=== PATIENT | male | born 1960 | race Caucasian/White ===

== ENCOUNTER 2018-04-16 18:10 | Inpatient (IN) | END 2018-04-21 18:15 | disposition home health service (06) | DRG 638 ==

== ENCOUNTER 2018-04-24 15:19 | Outpatient (CLI) | END 2018-04-24 16:18 | disposition home or self-care (01) ==

== ENCOUNTER 2018-05-09 15:03 | Outpatient (CLI) | END 2018-05-09 16:06 | disposition home or self-care (01) ==

== ENCOUNTER 2018-06-05 15:47 | Emergency (ER) | END 2018-06-05 16:43 | disposition home or self-care (01) ==

== ENCOUNTER 2018-08-06 13:59 | Inpatient (IN) | END 2018-08-07 18:55 | disposition home or self-care (01) | DRG 684 ==

== ENCOUNTER 2018-09-01 20:12 | Emergency (ER) | END 2018-09-02 01:41 | disposition home or self-care (01) ==

== ENCOUNTER 2018-11-14 13:20 | Inpatient (IN) | payer OTHER ==
[~2018-11-14] VITALS: Ht 152.4 cm; Wt 71.3 kg
[~2018-11-14 13:20] MED LIST: ADMELOG SUBCUTANE*; ASPI-903 PO; ATOR10TA65 PO; CIPR500T4 PO; DOCU-144 PO; GABA100C14 PO; LISI-313 PO; METO10TA92 PO; MTF1000T PO
[2018-11-14 13:22] VITALS: Ht 152.4 cm; Wt 71.3 kg
[2018-11-14] MEDS ORDERED: METO5TAB2 PO (14:18)
[2018-11-14] MEDS ORDERED: INSU100I33 SC (14:19)
[2018-11-14] MEDS ORDERED: SOD CHLORIDE 0.9% 1,000 ML IV STA (14:21)
[2018-11-14] MEDS ORDERED: ONDANSETRON 4 MG INJ IV STA (14:21)
[2018-11-14] MEDS ORDERED: ATOR20TA38 PO (14:21)
[2018-11-14] MEDS ORDERED: TAMS0.4C2 PO (14:23)
[2018-11-14] MEDS ORDERED: ONDANSETRON 4 MG INJ IV PRN (17:30)
[2018-11-14] MEDS ORDERED: ACETAMINOPHEN 325 MG TAB PO PRN (17:30)
[2018-11-14] MEDS ORDERED: LEVOFLOXACIN 500MG/D5W (PMX) 100 ML IVPB SCH (18:00)
[2018-11-14] MEDS ORDERED: NACL 0.9% 3 ML SYG IV SCH (18:00)
--- NOTE | 2018-11-14 18:30 | HP ---
Date/Time of Note Date/Time of Note DATE: 11/14/18 TIME: 18:08 Assessment/Plan VTE Prophylaxis SCD contraindicated: low risk/ambulating Pharmacological prophylaxis: NA/contraindicated Pharm contraindication: low risk/ambulating Lines/Catheters IV Catheter Type (from Nrsg): Saline Lock Assessment/Plan Assessment/Plan 58M with history of IDDM, stage 2 CKD, peripheral vascular disease status post foot amputations for osteomyelitis as well as severe diabetic retinopathy; presents with ALMAS, hypotension, PO intolerance, flank pain #Suspect sepsis - Flank pain may represent pyelo but his UTI shows no evidence of infection - However, due to his overall poor condition, hypotension, and leukocytosis I will start levofloxacin empirically - f/u urine culture - Blood cultures - Also sent influenza #Flank pain - f/u urine culture - Renal ultrasound. #PO intolerance - May be due to sepsis as above - May also be diabetic gastroparesis. - prn Reglan - IV fluids until tolerating diet. - Senna 2 tabs BID in case of ileus/constipation. #ALMAS - Likely due to dehydration - IV fluids and reassess - Pending outpatient nephrology appointment. #Chest pain - History not typical of cardiac chest pain. - Trops negative, EKG with poor R wave progression otherwise no ST-T change concerning for ischemia. - Will trend 3 trops - Will start protonix for suspected GERD. #IDDM - Hyperglycemic on admission - Will resume half dose home insulin due to poor PO intake. DVT: SCDs GI: Protonix HPI/ROS Admit Date/Time Admit Date/Time Nov 14, 2018 Hx of Present Illness Mr. Loya is a 58 yo man with history of IDDM, stage 2 CKD, peripheral vascular disease status post foot amputations for osteomyelitis as well as severe diabetic retinopathy. He presents with chills, flank pain, and PO intolerance. Symptoms are gradually progressive over the past three weeks. He reports progressive weakness and fatigue; chills constantly throughout the day mixed with intermitted fevers. He has not measured his own temperature. Over the past week he's developed nausea and anorexia. Yesterday he drank some water and immediately vomited it back up. This morning he woke up and had dry heaving. Yesterday he also developed burning pain across his chest. It's not associated with PO intake and doesn't change with exertion. It does not change with position. It's been roughly constant for since yesterday. For the past few days he has lightheadedness when standing and walking. He stopped taking his insulin for 5 days because his blood sugars have been low; and has not had a bowel movement for 5 days. His PMD is Dr. Mayers who he saw recently. She referred him to a electrolysis operator for his CKD and urology for BPH, he hasn't had these appointments yet. In the ED he presented tachy to 110s, hypotensive to 75/52 and this increased to 136/73 after 1L NS. WBC was 12.4. Cr 2.15 from 1.45. UA was negative for bacteria, nitrates, and leuk esterase. 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); No discharge, No redness ENT: No congestion Respiratory: No cough, No pleuritic pain, No shortness of breath Cardiovascular: chest pain; No edema, No palpitations Gastrointestinal: decreased appetite; No blood, No diarrhea Genitourinary: dysuria, flank pain; No bleeding Musculoskeletal: bone/joint pain, neck pain Skin: No bruising, No erythema Neurologic: dizziness; No confusion, No headache Lymphatic: No adenopathy PMH/Family/Social Past Medical History IDDM stage 2 CKD peripheral vascular disease Coded Allergies: No Known Allergy (Unverified , 11/14/18) Past Surgical History L foot transmetatarsal amputation 2014, R foot 5 digit amputation 2002 L eye surgery for retinopathy Family History Significant Family History: no pertinent family hx Social History Alcohol Use: none Smoking Status: Never smoker Drug Use: none Exam/Review of Systems Vital Signs Vitals Vital Signs Date Temp Pulse Resp B/P (MAP) Pulse Ox O2 O2 Flow FiO2 Time Delivery Rate 11/14/18 98.0 102 16 136/73 97 Room Air 17:18 (94) Exam Exam Gen: Fatigued appearing man in no acute distress. Eyes: PERRL, no icterus HEENT: Moist mucous membranes, clear oropharynx Neck: No lymphadenopathy, no JVD Card: Regular rate and rhythm, no murmurs Pulm: Clear to auscultation bilaterally Back: Bilateral CVA tenderness. No midline spine tenderness. Abd: Soft, nondistended, mild TTP RLQ. Ext: L foot transmetatarsal amputation, clean appearing. R foot with large media l bunion and well-healed dry ulcer underneath it Medications Medications Current Medications Ondansetron HCl (Zofran Inj) 4 mg BRIDGE ORDER PRN IV NAUSEA AND/OR VOMITING; Start 11/14/18 at 17:30; Stop 11/15/18 at 17:29 Acetaminophen (Tylenol Tab) 650 mg ER BRIDGE PRN PO MILD PAIN(1-3)OR ELEVATED TEMP; Start 11/14/18 at 17:30; Stop 11/15/18 at 17:29 Aspirin (Aspirin) 81 mg DAILY PO ; Start 11/15/18 at 09:00; Status UNV Atorvastatin Calcium (Lipitor) 20 mg QHS PO ; Start 11/14/18 at 21:00; Status UNV Gabapentin (Neurontin) 100 mg TID PO ; Start 11/14/18 at 21:00; Status UNV Lisinopril (Zestril) 5 mg DAILY PO ; Start 11/15/18 at 09:00; Status UNV Tamsulosin HCl (Flomax) 0.4 mg DAILY PO ; Start 11/15/18 at 09:00; Status UNV Sodium Chloride 1,000 ml @ 75 mls/hr [id number] IV ; Start 11/14/18 at 17:58; Status UNV IV Flush (NS 3 ml) 3 ml PER PROTOCOL IV ; Start 11/14/18 at 18:00; Status UNV Metoclopramide HCl (Reglan) 10 mg Q6H PRN IV NAUSEA AND/OR VOMITING; Start 11/14/18 at 18:00; Status UNV Acetaminophen (Tylenol Tab) 650 mg Q6H PRN PO PAIN LEVEL 1-3 OR FEVER; Start 11/14/18 at 18:00; Status UNV Results Result Diagram: 11/14/18 1505 11/14/18 1505 Results 24 hrs Laboratory Tests Test 11/14/18 14:18 11/14/18 15:05 11/14/18 15:20 Bedside Glucose 216 White Blood Count 12.4 #H Red Blood Count 3.35 L Hemoglobin 9.8 L Hematocrit 30.3 L Mean Corpuscular Volume 90.4 Mean Corpuscular Hemoglobin 29.3 Mean Corpuscular 32.3 Hemoglobin Concent Red Cell Distribution Width 12.5 Platelet Count 449 #H Mean Platelet Volume 9.7 Immature Granulocytes % 0.600 H Neutrophils % 73.4 Lymphocytes % 15.0 Monocytes % 10.3 Eosinophils % 0.3 Basophils % 0.4 Nucleated Red Blood Cells % 0.0 Immature Granulocytes # 0.070 H Neutrophils # 9.1 H Lymphocytes # 1.9 Monocytes # 1.3 H Eosinophils # 0.0 Basophils # 0.1 Nucleated Red Blood Cells # 0.0 Prothrombin Time 15.8 H Prothrombin Time Ratio 1.2 INR International 1.24 Normalized Ratio Activated 39.9 H Partial Thromboplast Time Sodium Level 139 Potassium Level 4.9 Chloride Level 96 L Carbon Dioxide Level 25 Anion Gap 18 H Blood Urea Nitrogen 46 H Creatinine 2.15 H Est Glomerular Filtrat 32 L Rate mL/min Glucose Level 230 H Calcium Level 10.5 H Total Bilirubin 1.2 Direct Bilirubin 0.00 Indirect Bilirubin 1.2 H Aspartate Amino 22 Transf (AST/SGOT) Alanine 10 L Aminotransferase (ALT/SGPT) Alkaline Phosphatase 87 Troponin I < 0.012 Total Protein 9.5 H Albumin 4.2 Globulin 5.30 H Albumin/Globulin Ratio 0.79 Lipase 42 Urine Color YELLOW Urine Clarity SLIGHTLY CLOUDY A Urine pH 5.0 Urine Specific [place] 1.021 Urine Ketones 1+ H Urine Nitrite NEGATIVE Urine Bilirubin NEGATIVE Urine Urobilinogen 1+ H Urine Leukocyte Esterase NEGATIVE Urine Microscopic RBC 0 Urine Microscopic WBC 2 Urine Mucus FEW A Urine Hemoglobin 1+ H Urine Glucose 3+ H Urine Total Protein 2+ H CLOVIS JACKMAN MD Nov 14, 2018 18:18
--- NOTE | 2018-11-14 18:39 | ERD ---
ER Documentation Chief Complaint Chief Complaint FEVER/CHILLS, DIZZINESS, WEAKNESS, CHEST PAIN X 10 DAYS HPI 58-year-old male with CKD and diabetes presenting with complaints of generalized weakness with associated chills and decreased appetite. He has also had some generalized body discomfort. He denies any melena or hematochezia. No nausea, vomiting, diarrhea. He denies cough, flulike symptoms, dysuria, or abdominal pain. He does state that his back hurts from his kidneys ROS All systems reviewed and are negative except as per history of present illness. Medications Home Meds Reported Medications Tamsulosin Hcl* (Tamsulosin Hcl*) 0.4 Mg Cap.er.24h, 0.4 MG PO DAILY, CAP 11/14/18 Atorvastatin Calcium* (Atorvastatin Calcium*) 20 Mg Tablet, 20 MG PO QHS, #30 TAB 11/14/18 Insulin Glargine,Hum.rec.anlog (Basaglar Kwikpen U-100) 100 Unit/1 Ml Insuln.pen, 45 UNIT SC QHS, EA 11/14/18 Metoclopramide Hcl* (Metoclopramide Hcl*) 5 Mg Tablet, 5 MG PO BID PRN for NAUSEA AND OR VOMITING, TAB 11/14/18 [Admelog] No Conflict Check, 15 UNITS SUBCUTANE* AC MEALS 08/06/18 Aspirin* (Aspirin* Chew) 81 Mg Tab.chew, 81 MG PO DAILY, TAB.CHEW 04/16/18 Lisinopril* (Lisinopril*) 5 Mg Tablet, 5 MG PO DAILY, #30 TAB 04/16/18 Gabapentin* (Gabapentin*) 100 Mg Capsule, 100 MG PO TID, #90 CAP 04/16/18 Discontinued Reported Medications Metoclopramide* (Reglan*) 10 Mg Tablet, 10 MG PO AC MEALS, TAB 04/16/18 Atorvastatin Calcium (Atorvastatin Calcium) 10 Mg Tablet, 10 MG PO QHS, #30 TAB 04/16/18 Metformin* (Glucophage*) 1,000 Mg Tablet, 1000 MG PO BID, #60 TAB 04/16/18 Discontinued Scripts Docusate Sodium* (Colace*) 100 Mg Capsule, 100 MG PO TID, #30 CAP Prov:KEISHA MOYA 09/02/18 Ciprofloxacin Hcl* (Ciprofloxacin Hcl*) 500 Mg Tablet, 500 MG PO BID for 7 Days, TAB Prov:KEISHA MOYA 09/02/18 Allergies Allergies: Coded Allergies: No Known Allergy (Unverified , 11/14/18) PMhx/Soc History of Surgery: No (LEFT FOOT TOES AMPUTATION, 2012, LEFT SMALL TOE AMPUT 2001) Anesthesia Reaction: No Hx Neurological Disorder: Yes (NEUROPATHY) Hx Respiratory Disorders: No Hx Cardiac Disorders: Yes (htn) Hx Psychiatric Problems: No Hx Miscellaneous Medical Probl: Yes (DM, BPH, R FOOT ULCER) Hx Alcohol Use: No Hx Substance Use: No Hx Tobacco Use: No Smoking Status: Never smoker FmHx Family History: No diabetes Physical Exam Vitals Vital Signs Date Temp Pulse Resp B/P (MAP) Pulse Ox O2 O2 Flow FiO2 Time Delivery Rate 11/14/18 98.0 102 16 136/73 97 Room Air 17:18 (94) 11/14/18 98.2 106 18 154/80 97 Room Air 15:34 (104) 11/14/18 113 16 129/68 99 Room Air 14:06 (88) 11/14/18 98.7 112 18 75/52 (60) 99 13:22 Physical Exam Const: No acute distress. Very thin and frail appearing Head: Atraumatic Eyes: Normal Conjunctiva, PERRLA, EOMI ENT: Normal External Ears, Nose and Mouth. Neck: Full range of motion. No meningismus. Resp: Clear to auscultation bilaterally Cardio: Regular rate and rhythm, no murmurs Abd: Soft, non tender, non distended. No palpable masses., normal bowel sounds Skin: Pale. No petechiae or rashes Back: No midline or flank tenderness Ext: No cyanosis, or edema Neur: Awake and alert. Normal speech, no facial asymmetry, strength and sensation is intact in all 4 extremities Psych: Normal Mood and Affect Result Diagram: 11/14/18 1505 11/14/18 1505 Results 24 hrs Laboratory Tests Test 11/14/18 14:18 11/14/18 15:05 11/14/18 15:20 Bedside Glucose 216 mg/dL White Blood Count 12.4 10^3/ul Red Blood Count 3.35 10^6/ul Hemoglobin 9.8 g/dl Hematocrit 30.3 % Mean Corpuscular Volume 90.4 fl Mean Corpuscular Hemoglobin 29.3 pg Mean Corpuscular 32.3 g/dl Hemoglobin Concent Red Cell Distribution Width 12.5 % Platelet Count 449 10^3/UL Mean Platelet Volume 9.7 fl Immature Granulocytes % 0.600 % Neutrophils % 73.4 % Lymphocytes % 15.0 % Monocytes % 10.3 % Eosinophils % 0.3 % Basophils % 0.4 % Nucleated Red Blood Cells % 0.0 /100WBC Immature Granulocytes # 0.070 10^3/ul Neutrophils # 9.1 10^3/ul Lymphocytes # 1.9 10^3/ul Monocytes # 1.3 10^3/ul Eosinophils # 0.0 10^3/ul Basophils # 0.1 10^3/ul Nucleated Red Blood Cells # 0.0 10^3/ul Prothrombin Time 15.8 Sec Prothrombin Time Ratio 1.2 INR International 1.24 Normalized Ratio Activated Partial Thromboplast 39.9 Sec Time Sodium Level 139 mmol/L Potassium Level 4.9 mmol/L Chloride Level 96 mmol/L Carbon Dioxide Level 25 mmol/L Anion Gap 18 Blood Urea Nitrogen 46 mg/dl Creatinine 2.15 mg/dl Est Glomerular Filtrat 32 mL/min Rate mL/min Glucose Level 230 mg/dl Calcium Level 10.5 mg/dl Total Bilirubin 1.2 mg/dl Direct Bilirubin 0.00 mg/dl Indirect Bilirubin 1.2 mg/dl Aspartate Amino 22 IU/L Transf (AST/SGOT) Alanine 10 IU/L Aminotransferase (ALT/SGPT) Alkaline Phosphatase 87 IU/L Troponin I < 0.012 ng/ml Total Protein 9.5 g/dl Albumin 4.2 g/dl Globulin 5.30 g/dl Albumin/Globulin Ratio 0.79 Lipase 42 U/L Urine Color YELLOW Urine Clarity SLIGHTLY CLOUDY Urine pH 5.0 Urine Specific [place] 1.021 Urine Ketones 1+ mg/dL Urine Nitrite NEGATIVE mg/dL Urine Bilirubin NEGATIVE mg/dL Urine Urobilinogen 1+ mg/dL Urine Leukocyte Esterase NEGATIVE [place]/ul Urine Microscopic RBC 0 /HPF Urine Microscopic WBC 2 /HPF Urine Mucus FEW /HPF Urine Hemoglobin 1+ mg/dL Urine Glucose 3+ mg/dL Urine Total Protein 2+ mg/dl Current Medications Medications Dose Sig/Yanira Start Time Status Last (Trade) Ordered Route PRN Stop Time Admin Dose Reason Admin Sodium 1,000 ml @ Q28M STAT 11/14/18 DC 11/14/18 Chloride 2,160 mls/hr IV 14:21 14:54 11/14/18 14:48 Ondansetron 4 mg ONCE STAT 11/14/18 DC 11/14/18 HCl (Zofran IV 14:21 14:54 Inj) 11/14/18 14:25 Ondansetron 4 mg BRIDGE ORDER 11/14/18 DC HCl (Zofran PRN IV 17:30 Inj) NAUSEA AND/OR 11/14/18 VOMITING 18:08 650 mg ER BRIDGE 11/14/18 DC Acetaminophen PRN PO MILD 17:30 (Tylenol PAIN(1-3)OR 11/14/18 Tab) ELEVATED TEMP 18:08 Aspirin 81 mg DAILY PO 11/15/18 (Aspirin) 09:00 20 mg QHS PO 11/14/18 Atorvastatin 21:00 Calcium (Lipitor) Gabapentin 100 mg TID PO 11/14/18 (Neurontin) 21:00 Lisinopril 5 mg DAILY PO 11/15/18 (Zestril) 09:00 Tamsulosin 0.4 mg DAILY PO 11/15/18 HCl 09:00 (Flomax) Sodium 1,000 ml @ [id number] IV 11/14/18 Chloride 75 mls/hr 17:58 IV Flush 3 ml PER 11/14/18 (NS 3 ml) PROTOCOL IV 18:00 10 mg Q6H PRN 11/14/18 Metoclopramid IV NAUSEA 18:00 e HCl AND/OR (Reglan) VOMITING 650 mg Q6H PRN 11/14/18 Acetaminophen PO PAIN 18:00 (Tylenol LEVEL 1-3 OR Tab) FEVER 100 ml @ Q48H IVPB 11/14/18 Levofloxacin/ 100 mls/hr 18:00 Dextrose 40 mg DAILY@0600 11/14/18 Pantoprazole PO 18:30 (Protonix Tab) Procedures/MDM EMERGENT LABS AND DIAGNOSTIC STUDIES: Lab Results above were reviewed and interpreted by me. CBC: Mild leukocytosis, thrombocytosis, anemia CMP: Elevated BUN and creatinine, worse than baseline, consistent with acute on chronic renal failure. Hyperglycemic. No evidence of electrolyte abnormality Troponin within normal limits, not indicative of cardiac ischemia UA: Microscopic hematuria. No evidence of infection 12-lead EKG was interpreted by Jazmyn Lacy MD: Sinus tachycardia with ventricular rate of 113 beats per minute Normal axis Normal intervals No acute ST or T wave changes suggestive of acute ischemia or STEMI. Radiology Results as interpreted by Radiology below were reviewed by Dylon Lacy MD: Chest x-ray shows no acute abnormalities Initial Nursing notes reviewed. Previous Medical Records requested via the Electronic Health Record. EMERGENCY DEPARTMENT COURSE / MEDICAL DECISION MAKING: Patient is presenting with generalized weakness. Vitals were notable for hypotension and tachycardia upon arrival. However in the room the patient's blood pressure normalized without intervention. IVs were placed and basic labs were done. Labs show evidence of mild anemia and acute on chronic renal failure, likely secondary to dehydration. 2 L of IV fluids ordered. Patient wi ll require admission for further workup and monitoring of renal function. Critical Care Time: 33 minutes Treatments/Evaluations: Close monitoring and treatment of unstable vital signs, cardiorespiratory, and neurologic status, while maintaining tight balance of fluid, respiratory, and cardiac interventions. This time includes discussing the case with the patient and the patients family. This time does not include all procedures stated elsewhere in this record. This time also includes reviewing old records, labs and radiological studies. This time includes examining and re- examining the patient. Additionally, this time also includes arranging care with admitting and consulting physicians. Accepting Care Team: Current data and ongoing care discussed. Time: Time of admission Primary Provider: Dr. Donovan Outstanding Data: none Departure Diagnosis: Primary Impression: Acute on chronic renal failure Acute renal failure type: unspecified Chronic kidney disease stage: unspecified stage Qualified Codes: N17.9 - Acute kidney failure, un specified; N18.9 - Chronic kidney disease, unspecified Additional Impressions: Dehydration Anemia Anemia type: unspecified type Qualified Codes: D64.9 - Anemia, unspecified Uncontrolled diabetes mellitus Diabetes mellitus type: type 2 Glycemic state: with hyperglycemia Qualified Codes: E11.65 - Type 2 diabetes mellitus with hyperglycemia Condition: Fair EKMEKJIAN,NELLIE R. MD Nov 14, 2018 18:38
[2018-11-14] MEDS ORDERED: GLUCOSE GEL 15 GRAM TUBE PO PRN ×2 (19:00)
[2018-11-14] MEDS ORDERED: GLUCAGON 1 MG INJ IM PRN (19:00)
[2018-11-14] MEDS ORDERED: GLUCOSE GEL 15 GRAM TUBE BUCCAL PRN (19:00)
[2018-11-14] MEDS ORDERED: DEXTROSE 50% 50 ML SYRINGE IV PRN ×2 (19:00)
[2018-11-14] MEDS: SOD CHLORIDE 0.9% 1,000 ML IV SCH (20:15)
[2018-11-14 20:26] VITALS: BP 112/58; PULSE 104; RESP 18
[2018-11-14] MEDS: GABAPENTIN 100 MG CAP PO SCH (20:55)
[2018-11-14] MEDS: ATORVASTATIN 20 MG TAB PO SCH (20:55)
[2018-11-14] MEDS: PANTOPRAZOLE (EC) 40 MG TAB PO SCH (20:56)
[2018-11-14] MEDS: INSULIN ASPART [NOVOLOG] 3 ML PEN SC SCH (21:00)
--- NOTE | 2018-11-14 21:00 | NUR ---
PATIENT ADMITTED FROM ER.DIAGNOSIS DEHYDRATION,ALMAS.ALERT AND ORIENTED X 4. PATIENT WITH CHIEF COMPLAIN OF FEVER ,CHILLS,WEAKNESS X 10 DAYS.WE CLAIMED HE HAS NOT GOTTEN UP FOR 10DAYS ALREADY DUE TO WEAKNESS,NAUSEA ,VOMITING.PATIENT ASSISTED TO BED.INSTRUCTED TO USE CALL LIGHT FOR ASSISTANCE.BED CONTROLS ALSO INSTRUCTED.
[2018-11-14] MEDS: INSULIN GLARGINE [LANTus] (100 UNITS/ML) SYG SC SCH (23:09)
[2018-11-15] MEDS: ACCU-CHEK XX SCH (02:00)
[2018-11-15 02:34] VITALS: BP 93/55; PULSE 88; RESP 18
[2018-11-15] MEDS: ACETAMINOPHEN 325 MG TAB PO PRN ×3 (02:45→23:44)
[2018-11-15] MEDS ORDERED: SOD CHLORIDE 0.9% 500 ML IV ONE (03:00)
--- NOTE | 2018-11-15 03:04 | NUR ---
PATIENT'S TEMP 102.0.BLOOD PRHXLDHP05/55.DR. FERREIRA NOTIFIED RECEIVED ORDER TO GIVE 500ML NS BOLUS X1.
--- NOTE | 2018-11-15 03:45 | NUR ---
TEMP. RECHECKED AND B/P RECHECKED.TEMP.99.2 AND BLOOD PRESSURE 104/57.
--- NOTE | 2018-11-15 06:24 | NUR ---
END OF SHIFT. PATIENT WITH NO C/O PAIN. SLEPT ON AND OFF. VOIDING WELL. COOLING MEASURES DONE.NO RESP. DISTRESS NOTED.
[2018-11-15] MEDS: PANTOPRAZOLE (EC) 40 MG TAB PO SCH (06:37)
[2018-11-15] MEDS: SOD CHLORIDE 0.9% 1,000 ML IV SCH ×4 (07:18→23:39)
[2018-11-15 07:21] VITALS: BP 110/59; PULSE 74; RESP 18
[2018-11-15] MEDS: INSULIN ASPART [NOVOLOG] 3 ML PEN SC SCH ×7 (08:00→21:00)
[2018-11-15] MEDS: GABAPENTIN 100 MG CAP PO SCH ×3 (08:13→21:02)
[2018-11-15] MEDS: ASPIRIN 81 MG TAB PO SCH (08:13)
[2018-11-15] MEDS: TAMSULOSIN (SR) 0.4 MG CAP PO SCH (08:13)
[2018-11-15] MEDS: LISINOPRIL 5 MG TAB PO SCH (10:24)
[2018-11-15 13:53] VITALS: BP 102/56; PULSE 89; RESP 18
--- NOTE | 2018-11-15 16:08 | PN ---
Date/Time of Note Date/Time of Note DATE: 11/15/18 TIME: 16:04 Assessment/Plan VTE Prophylaxis Risk score (from Ns)>0 risk: 3 SCD applied (from Ns): Yes Pharmacological prophylaxis: NA/contraindicated Pharm contraindication: low risk/ambulating Lines/Catheters IV Catheter Type (from Nrsg): Saline Lock Urinary Cath still in place: No Assessment/Plan Assessment/Plan 58M with history of IDDM, stage 2 CKD, peripheral vascular disease status post foot amputations for osteomyelitis as well as severe diabetic retinopathy; presents with ALMAS, hypotension, PO intolerance, flank pain #Suspect sepsis - Flank pain may represent pyelo but his UTI shows no evidence of infection, urine culture also negative. - Influenza neg - May have been viral gastroenteritis. - Will stop antibiotics #Flank pain - Renal ultrasound shows nonobstructing stone, no e/o pyelo. - Now resolving. #PO intolerance - May be due to sepsis as above - May also be diabetic gastroparesis. - prn Reglan - Now tolerating diet. - Senna 2 tabs BID in case of ileus/constipation. #ALMAS - Likely due to dehydration - Now resolved. - Pending outpatient nephrology appointment. #Chest pain - History not typical of cardiac chest pain. - Trops negative, EKG with poor R wave progression otherwise no ST-T change concerning for ischemia. - Will start protonix for suspected GERD. #IDDM - Hyperglycemic on admission - Will resume half dose home insulin due to poor PO intake. DVT: SCDs GI: Protonix Dispo: Tomorrow if ambulating comfortably will plan for discharge. Subjective 24 Hr Interval Summary Free Text/Dictation Patient feels well today. Tolerating diet. Flank pain improving. Still some dizziness and fatigue when standing and walking. Exam/Review of Systems Vital Signs Vitals Vital Signs Date Temp Pulse Resp B/P (MAP) Pulse Ox O2 O2 Flow FiO2 Time Delivery Rate 11/15/18 98.4 89 18 102/56 99 Room Air 13:53 (71) Intake and Output 11/14/18 11/14/18 11/15/18 1515:00 23:00 07:00 IntakeIntake Total 1000 ml 1420 ml OutputOutput Total 500 ml BalanceBalance 1000 ml 920 ml Exam Gen: Fatigued appearing man in no acute distress. Eyes: PERRL, no icterus HEENT: Moist mucous membranes, clear oropharynx Neck: No lymphadenopathy, no JVD Card: Regular rate and rhythm, no murmurs Pulm: Clear to auscultation bilaterally Back: No CVA tenderness. No midline spine tenderness. Abd: Soft, nondistended, mild TTP RLQ. Ext: L foot transmetatarsal amputation, clean appearing. R foot with large medial bunion and well-healed dry ulcer underneath it Medications Medications Current Medications Aspirin (Aspirin) 81 mg DAILY PO Last administered on 11/15/18 08:13; Admin Dose 81 MG; Start 11/15/18 at 09:00 Atorvastatin Calcium (Lipitor) 20 mg QHS PO Last administered on 11/14/18 20:55; Admin Dose 20 MG; Start 11/14/18 at 21:00 Gabapentin (Neurontin) 100 mg TID PO Last administered on 11/15/18 12:32; Admin Dose 100 MG; Start 11/14/18 at 21:00 Lisinopril (Zestril) 5 mg DAILY PO Last administered on 11/15/18 10:24; Admin Dose 5 MG; Start 11/15/18 at 09:00 Tamsulosin HCl (Flomax) 0.4 mg DAILY PO Last administered on 11/15/18 08:13; Admin Dose 0.4 MG; Start 11/15/18 at 09:00 Sodium Chloride 1,000 ml @ 75 mls/hr [id number] IV Last administered on 11/15/18 10:23; Admin Dose 75 MLS/HR; Start 11/14/18 at 17:58 IV Flush (NS 3 ml) 3 ml PER PROTOCOL IV ; Start 11/14/18 at 18:00 Metoclopramide HCl (Reglan) 10 mg Q6H PRN IV NAUSEA AND/OR VOMITING; Start 11/14/18 at 18:00 Acetaminophen (Tylenol Tab) 650 mg Q6H PRN PO PAIN LEVEL 1-3 OR FEVER Last administered on 11/15/18 02:45; Admin Dose 650 MG; Start 11/14/18 at 18:00 Levofloxacin/ Dextrose 100 ml @ 100 mls/hr Q48H IVPB Last administered on 11/14/18 20:15; Admin Dose 100 MLS/HR; Start 11/14/18 at 18:00 Pantoprazole (Protonix Tab) 40 mg DAILY@0600 PO Last administered on 11/15/18at 06:37; Admin Dose 40 MG; Start 11/14/18 at 18:30 Senna (Senokot) 2 tab BID PRN PO CONSTIPATION; Start 11/14/18 at 18:30 Diagnostic Test (Pha) (Accu-Chek) 1 ea 02 XX ; Start 11/15/18 at 02:00 Insulin Glargine (Lantus) 21 units DAILY@2000 SC Last administered on 11/14/18at 23:09; Admin Dose 21 UNITS; Start 11/14/18 at 20:00 Insulin Aspart (Novolog Insulin Pen) 7 unit WITH MEALS SC Last administered on 11/15/18at 12:39; Admin Dose 7 UNIT; Start 11/15/18 at 08:00 Insulin Aspart (Novolog Insulin Pen) NOVOLOG *MODERATE* ALGORITHM WITH MEALS BEDTIME SC Last administered on 11/15/18at 12:37; Admin Dose 2 UNIT; Start 11/14/18 at 21:00 Miscellaneous Information 1 ea NOTE XX ; Start 11/14/18 at 19:00 Glucose (Glutose) 15 gm Q15M PRN PO DECREASED GLUCOSE; Start 11/14/18 at 19:00 Glucose (Glutose) 22.5 gm Q15M PRN PO DECREASED GLUCOSE; Start 11/14/18 at 19:00 Dextrose (D50w Syringe) 25 ml Q15M PRN IV DECREASED GLUCOSE; Start 11/14/18 at 19:00 Dextrose (D50w Syringe) 50 ml Q15M PRN IV DECREASED GLUCOSE; Start 11/14/18 at 19:00 Glucagon (Glucagen) 1 mg Q15M PRN IM DECREASED GLUCOSE; Start 11/14/18 at 19:00 Glucose (Glutose) 15 gm Q15M PRN BUCCAL DECREASED GLUCOSE; Start 11/14/18 at 19:00 Results Result Diagram: 11/15/1835 11/15/18 0535 Results 24 hrs Laboratory Tests Test 11/14/18 18:10 11/14/18 22:17 11/14/18 23:05 11/15/18 05:35 Lactic Acid 1.2 Level Troponin I < 0.012 0.014 Thyroid 1.420 Stimulating Hormone (TSH) Free Thyroxine 1.47 Bedside Glucose 165 White Blood 7.4 # Count Red Blood Count 2.57 #L Hemoglobin 7.6 #L Hematocrit 23.2 #L Mean Corpuscular 90.3 Volume Mean Corpuscular 29.6 Hemoglobin Mean Corpuscular 32.8 Hemoglobin Ald[place] nt Red Cell 12.5 Distribution Width Platelet Count 312 # Mean Platelet 9.2 Volume Immature 0.500 H Granulocytes % Neutrophils % 61.1 Lymphocytes % 24.0 Monocytes % 12.9 H Eosinophils % 1.2 Basophils % 0.3 Nucleated Red 0.0 Blood Cells % Immature 0.040 H Granulocytes # Neutrophils # 4.5 Lymphocytes # 1.8 Monocytes # 1.0 H Eosinophils # 0.1 Basophils # 0.0 Nucleated Red 0.0 Blood Cells # Sodium Level 138 Potassium Level 4.2 Chloride Level 103 Carbon Dioxide 26 Level Anion Gap 9 # Blood Urea 38 H Nitrogen Creatinine 1.51 H Est Glomerular 48 L Filtrat Rate mL/min Glucose Level 94 # Hemoglobin A1c 8.2 H Calcium Level 9.3 Phosphorus Level 3.7 Magnesium Level 2.0 Total Bilirubin 1.0 Direct Bilirubin 0.00 Indirect 1.0 Bilirubin Aspartate Amino 17 Transf (AST/SGOT ) Alanine 14 Aminotransferase (ALT/SGPT) Alkaline 55 Phosphatase Total Protein 7.1 # Albumin 3.3 Globulin 3.80 H Albumin/Globulin 0.86 Ratio Test 11/15/18 07:58 11/15/18 12:31 Bedside Glucose 77 141 CLOVIS JACKMAN MD Nov 15, 2018 16:08
--- NOTE | 2018-11-15 18:18 | NUR ---
END OF SHIFT NOTES: PT STABLE, ALERT & ORIENTED X4. NO DISTRESS NOTED. ACCUCHECKS DONE, INSULIN COVERAGE GIVEN. MONITORED FOR FEVERS, X1 NOTED. GIVEN TYLENOL. REASSESSED.FEVER WENT DOWN TO FROM 100.8 TO 99.9. COOLING MEASURES INITIATED. KEPT HYDRATED VIA IV ORDERED. ENCOURAGED INCREASE IN FLUIDS. INSTRUCTED PT TO CALL FOR ASSISTANCE. VS WNL.HOURLY ROUNDING. CALL LIGHT WITHIN REACH.ALL NEEDS MET. NO NEW COMPLAINTS.
[2018-11-15] MEDS ORDERED: LEVOFLOXACIN 500 MG TAB PO ONE (18:30)
[2018-11-15 19:47] VITALS: BP 86/55; PULSE 81; RESP 18
[2018-11-15] MEDS: INSULIN GLARGINE [LANTus] (100 UNITS/ML) SYG SC SCH (20:00)
[2018-11-15 20:22] VITALS: BP 98/56; PULSE 77
[2018-11-15] MEDS: ATORVASTATIN 20 MG TAB PO SCH (21:01)
--- NOTE | 2018-11-15 22:14 | NUR ---
re: phyllis spoke with Dr. Prescott regarding lantus and bg. pt's bg is 101 and 21 units ordered of lantus, this AM bg was 77. Notified Dr. Prescott and orders given to administer 15 of lantus tonight.
[2018-11-15] MEDS ORDERED: INSULIN GLARGINE [LANTus] (100 UNITS/ML) SYG SC ONE (22:30)
[2018-11-15 23:51] VITALS: BP 135/66; PULSE 85
[2018-11-16 01:54] VITALS: BP 106/59; PULSE 82; RESP 18
[2018-11-16] MEDS: ACCU-CHEK XX SCH (02:00)
[2018-11-16] MEDS: ACETAMINOPHEN 325 MG TAB PO PRN ×4 (02:15→20:43)
[2018-11-16] MEDS: PANTOPRAZOLE (EC) 40 MG TAB PO SCH (06:35)
[2018-11-16] MEDS ORDERED: VANCOMYCIN IV PER PHARMACY XX SCH (07:00)
--- NOTE | 2018-11-16 07:35 | NUR ---
re: shift note pt is alert and oriented, vss, no signs of distress noted. administered prn tylenol for fever. gram positive cocci in clusters in bottle #1 blood culture, notified, orders for vanco per pharmacy. PO levaquin pending from pharmacy, endorsed to dayshift RN.
[2018-11-16 07:48] VITALS: BP 117/62; PULSE 79; RESP 16
[2018-11-16] MEDS ORDERED: VANCOMYCIN 1.5 GM in SOD CHLORIDE 0.9% 250 ML IVPB ONE (08:00)
[2018-11-16] MEDS: LISINOPRIL 5 MG TAB PO SCH (08:21)
[2018-11-16] MEDS: TAMSULOSIN (SR) 0.4 MG CAP PO SCH (08:21)
[2018-11-16] MEDS: ASPIRIN 81 MG TAB PO SCH (08:22)
[2018-11-16] MEDS: GABAPENTIN 100 MG CAP PO SCH ×3 (08:22→20:40)
[2018-11-16] MEDS: LEVOFLOXACIN 250 MG TAB PO SCH (08:24)
[2018-11-16] MEDS: INSULIN ASPART [NOVOLOG] 3 ML PEN SC SCH ×7 (08:26→20:41)
[2018-11-16] MEDS: METOCLOPRAMIDE 10 MG INJ IV PRN (08:27)
[2018-11-16] MEDS: SOD CHLORIDE 0.9% 1,000 ML IV SCH ×2 (09:58→15:22)
[2018-11-16 13:53] VITALS: BP 104/55; PULSE 76; RESP 16
--- NOTE | 2018-11-16 13:55 | PN ---
Date/Time of Note Date/Time of Note DATE: 11/16/18 TIME: 13:50 Assessment/Plan VTE Prophylaxis Risk score (from Nsg)>0 risk: 3 SCD applied (from Nsg): Yes Pharmacological prophylaxis: heparin Lines/Catheters IV Catheter Type (from Nrsg): Saline Lock Urinary Cath still in place: No Assessment/Plan Assessment/Plan 58M with history of IDDM, stage 2 CKD, peripheral vascular disease status post foot amputations for osteomyelitis as well as severe diabetic retinopathy; presents with ALMAS, hypotension, PO intolerance, flank pain #Sepsis - Flank pain may represent pyelo but his UTI shows no evidence of infection, urine culture also negative. - Influenza neg - Daily fevers. - May have been viral gastroenteritis; reported PO intolerance on admission but now tolerating diet fine. - Blood cultures growing 1/2 gram positive cocci. - Empiric levofloxacin and vanco - Also will get TTE. - Consulted ID #Flank pain - Renal ultrasound shows nonobstructing stone, no e/o pyelo. - Now resolving. #PO intolerance - Resolved #ALMAS - Likely due to dehydration - Now resolved. - Pending outpatient nephrology appointment. #Chest pain - History not typical of cardiac chest pain. - Trops negative, EKG with poor R wave progression otherwise no ST-T change concerning for ischemia. - Protonix for suspected GERD. #IDDM - Hyperglycemic on admission - Cont home insulin due to poor PO intake. DVT: SCDs GI: Protonix Subjective 24 Hr Interval Summary Free Text/Dictation Overnight had fevers to 101s. Still has mild bilateral flank pain. Otherwise feeling well, tolerating diet. Exam/Review of Systems Vital Signs Vitals Vital Signs Date Temp Pulse Resp B/P (MAP) Pulse Ox O2 O2 Flow FiO2 Time Delivery Rate 11/16/18 99.4 08:25 11/16/18 79 16 117/62 98 07:48 (80) 11/15/18 Room Air 13:53 Intake and Output 11/15/18 11/15/18 11/16/18 1515:00 23:00 07:00 IntakeIntake Total 1020 ml 885 ml 1380 ml OutputOutput Total 1450 ml BalanceBalance 1020 ml 885 ml -70 ml Exam Gen: Well appearing man in no acute distress. Eyes: PERRL, no icterus HEENT: Moist mucous membranes, clear oropharynx Neck: No lymphadenopathy, no JVD Card: Regular rate and rhythm, no murmurs Pulm: Clear to auscultation bilaterally Back: No CVA tenderness. No midline spine tenderness. Abd: Soft, nondistended, mild TTP RLQ. Ext: L foot transmetatarsal amputation, clean appearing. R foot with large medial bunion and well-healed dry ulcer underneath it Medications Medications Current Medications Aspirin (Aspirin) 81 mg DAILY PO Last administered on 11/16/18 08:22; Admin Dose 81 MG; Start 11/15/18 at 09:00 Atorvastatin Calcium (Lipitor) 20 mg QHS PO Last administered on 11/15/18 21:01; Admin Dose 20 MG; Start 11/14/18 at 21:00 Gabapentin (Neurontin) 100 mg TID PO Last administered on 11/16/18 13:10; Admin Dose 100 MG; Start 11/14/18 at 21:00 Lisinopril (Zestril) 5 mg DAILY PO Last administered on 11/16/18 08:21; Admin Dose 5 MG; Start 11/15/18 at 09:00 Tamsulosin HCl (Flomax) 0.4 mg DAILY PO Last administered on 11/16/18 08:21; Admin Dose 0.4 MG; Start 11/15/18 at 09:00 Sodium Chloride 1,000 ml @ 75 mls/hr [id number] IV Last administered on 11/15/18 23:39; Admin Dose 75 MLS/HR; Start 11/14/18 at 17:58 IV Flush (NS 3 ml) 3 ml PER PROTOCOL IV ; Start 11/14/18 at 18:00 Metoclopramide HCl (Reglan) 10 mg Q6H PRN IV NAUSEA AND/OR VOMITING Last administered on 11/16/18 08:27; Admin Dose 10 MG; Start 11/14/18 at 18:00 Acetaminophen (Tylenol Tab) 650 mg Q6H PRN PO PAIN LEVEL 1-3 OR FEVER Last administered on 11/16/18 06:35; Admin Dose 650 MG; Start 11/14/18 at 18:00 Pantoprazole (Protonix Tab) 40 mg DAILY@0600 PO Last administered on 11/16/18 06:35; Admin Dose 40 MG; Start 11/14/18 at 18:30 Senna (Senokot) 2 tab BID PRN PO CONSTIPATION; Start 11/14/18 at 18:30 Diagnostic Test (Pha) (Accu-Chek) 1 ea 02 XX ; Start 11/15/18 at 02:00 Insulin Glargine (Lantus) 21 units DAILY@1999 SC Last administered on 11/14/18at 23:09; Admin Dose 21 UNITS; Start 11/14/18 at 20:00; Status Hold Insulin Aspart (Novolog Insulin Pen) 7 unit WITH MEALS SC Last administered on 11/16/18at 12:32; Admin Dose 7 UNIT; Start 11/15/18 at 08:00 Insulin Aspart (Novolog Insulin Pen) NOVOLOG *MODERATE* ALGORITHM WITH MEALS BEDTIME SC Last administered on 11/16/18at 12:32; Admin Dose 2 UNIT; Start 11/14/18 at 21:00 Miscellaneous Information 1 ea NOTE XX ; Start 11/14/18 at 19:00 Glucose (Glutose) 15 gm Q15M PRN PO DECREASED GLUCOSE; Start 11/14/18 at 19:00 Glucose (Glutose) 22.5 gm Q15M PRN PO DECREASED GLUCOSE; Start 11/14/18 at 19:00 Dextrose (D50w Syringe) 25 ml Q15M PRN IV DECREASED GLUCOSE; Start 11/14/18 at 19:00 Dextrose (D50w Syringe) 50 ml Q15M PRN IV DECREASED GLUCOSE; Start 11/14/18 at 19:00 Glucagon (Glucagen) 1 mg Q15M PRN IM DECREASED GLUCOSE; Start 11/14/18 at 19:00 Glucose (Glutose) 15 gm Q15M PRN BUCCAL DECREASED GLUCOSE; Start 11/14/18 at 19:00 Levofloxacin (Levaquin) 250 mg DAILY@06 PO Last administered on 11/16/18at 08:24; Admin Dose 250 MG; Start 11/16/18 at 06:00 Vancomycin HCl (Vanco Iv Per Pharmacy) VANCOMYCIN PER PHARMACY PER PROTOCOL XX ; Start 11/16/18 at 07:00 Vancomycin HCl 250 ml @ 125 mls/hr Q12H IVPB ; Start 11/16/18 at 21:00 Results Result Diagram: 11/16/18 0509 11/16/18 0509 Results 24 hrs Laboratory Tests Test 11/15/18 17:37 11/15/18 21:46 11/15/18 22:20 11/16/18 05:09 Bedside Glucose 155 101 98 White Blood 8.1 Count Red Blood Count 2.68 L Hemoglobin 7.8 L Hematocrit 23.5 L Mean Corpuscular 87.7 Volume Mean Corpuscular 29.1 Hemoglobin Mean Corpuscular 33.2 Hemoglobin Alda nt Red Cell 12.3 Distribution Width Platelet Count 304 Mean Platelet 9.3 Volume Immature 0.200 Granulocytes % Neutrophils % 67.1 Lymphocytes % 21.2 Monocytes % 9.6 Eosinophils % 1.5 Basophils % 0.4 Nucleated Red 0.0 Blood Cells % Immature 0.020 Granulocytes # Neutrophils # 5.5 Lymphocytes # 1.7 Monocytes # 0.8 Eosinophils # 0.1 Basophils # 0.0 Nucleated Red 0.0 Blood Cells # Sodium Level 137 Potassium Level 4.4 Chloride Level 101 Carbon Dioxide 27 Level Anion Gap 9 Blood Urea 22 #H Nitrogen Creatinine 1.25 H Est Glomerular 60 Filtrat Rate mL/min Glucose Level 151 Calcium Level 8.9 Phosphorus Level 3.3 Magnesium Level 1.8 Test 11/16/18 07:54 11/16/18 12:22 Bedside Glucose 196 160 CLOVIS JACKMAN MD Nov 16, 2018 13:55
--- NOTE | 2018-11-16 14:00 | NUR ---
PT evaluation Therapy day number 1 Evaluation Start Time 14:00 Evaluation End Time 14:53 Evaluation Total Time 53 min Subjective Denies pain Pain Scale NUMERIC Pain Intensity 0 (0-10) Patient Stated Goal for Pain Relief 0 (0-10) Pain Level Comment denies pain Pre Treatment Vital Signs Stable Yes Supine to Sit Modified Independent Transfer Sit to Stand Ability Supervised Bed Mobility Sit to Supine Modified Independent Bed Transfer Ability Supervised Chair Transfer Ability Supervised Additional Mobility Comments improved with use of FWW Gait Assist Levels Supervised Assistive Devices Front Wheel Walker Ambulation Distance 10 feet Additional Gait Comments 5' performed without AD, required min A Weight Bearing Assessment Label Bilat Lower Extremity Weight Bearing Status Weight Bearing as Mukesh Static Sitting Balance Fair Dynamic Sitting Balance Fair Standing Static Balance Fair Dynamic Standing Balance Fair Additional Balance Assessments Comments much improved with use of UE support Safety Judgement Fair Activity Tolerance Fair Equipment Present IV pump Post Treatment Pain Intensity 0 0-10 Total Minutes 53 Total Units 4 PT Technical Record Comment 58 yo male presents with chills, flank pain, and PO intolerance. CXR (-) PMH: IDDM, stage 2 CKD, peripheral vascular disease status post foot amputations for osteomyelitis as well as severe diabetic retinopathy Precaution: fall risk, WBAT BLE, L transmetatarsal amputation, Charcot deformity of R foot PLOF:Patient lives in 2nd floor apartment with daughter, previously mod I reports not leaving apartment "except for doctor appointments" minimal ambulation due to wound on R forefoot S: Patient in bed, agreeable to PT evaluation. Pt cleared for activity per RN O: PT evaluation completed, pt returned back to bed following therapy intervention with call light within reach, all needs met, family present at bedside. No reports of pain, dizziness, or shortness of breath with activity. Spoke to RN regarding pt response to activity and PT plan of care. Patient gait trained with both FWW and without AD A: Patient presents with significant balance concerns without use of FWW. Patient educated to minimal LLE advancement to minimize terminal stance to decrease weight bearing on R forefoot for management of wound as patient has minimal sensation out of BLE and wound "opens". Patient consistantly relies on visual cues for foot placement and without AD often looks for UE support and although slightly apprehensive about using FWW initially, understanding of importance to decrease fall risk. Patient could benefit from 1-2 treatment interventions to improve compliance and safety with FWW P: Progress gait with FWW, stair training as able, Patient may ambulate with nursing and FWW Recommendation: Recommend use of FWW for safe mobility
[2018-11-16] MEDS ORDERED: HEPARIN 5,000 UNIT/0.5 ML VIAL ONE ×2 (14:28→20:34)
[2018-11-16] MEDS: HEPARIN 5,000 UNIT/1 ML VIAL SC SCH ×2 (14:36→22:45)
--- NOTE | 2018-11-16 18:31 | NUR ---
END OF SHIFT NOTES: PT STABLE, ALERT & ORIENTED X4. NO DISTRESS NOTED. AFEBRILE DURING THE SHIFT. MONITORED FOR FEVERS. ADMINISTERED IV ANTIBIOTICS ORDERED, PT TOLERATED WELL. ACCUCHECKS DONE, INSULIN COVERAGE GIVEN. ECG WITH DOPPLER DONE. PHYSICAL THERAPY DONE. INSTRUCTED PT TO CALL FOR ASSISTANCE AND ENCOURAGED TO USE WALKER UPON AMBULATING. VS WNL.HOURLY ROUNDING. CALL LIGHT WITHIN REACH.ALL NEEDS MET. NO NEW COMPLAINTS.
[2018-11-16 20:32] VITALS: BP 106/55; PULSE 92; RESP 18
[2018-11-16] MEDS: ATORVASTATIN 20 MG TAB PO SCH (20:40)
[2018-11-16] MEDS: VANCOMYCIN 1 GM 250 ML IVPB SCH (20:42)
[2018-11-16] MEDS: INSULIN GLARGINE [LANTus] (100 UNITS/ML) SYG SC SCH (22:44)
[2018-11-17] MEDS: SOD CHLORIDE 0.9% 1,000 ML IV SCH ×2 (01:17→11:44)
[2018-11-17 01:54] VITALS: BP 104/59; PULSE 74; RESP 18
[2018-11-17] MEDS: ACCU-CHEK XX SCH (02:00)
[2018-11-17] MEDS ORDERED: HEPARIN 5,000 UNIT/0.5 ML VIAL ONE ×2 (04:36→13:41)
[2018-11-17] MEDS: PANTOPRAZOLE (EC) 40 MG TAB PO SCH (05:49)
[2018-11-17] MEDS: LEVOFLOXACIN 250 MG TAB PO SCH (05:49)
[2018-11-17] MEDS: HEPARIN 5,000 UNIT/1 ML VIAL SC SCH ×3 (05:57→22:25)
--- NOTE | 2018-11-17 06:39 | NUR ---
END OF SHIFT NOTE: PATIENT IS ALERT AND ORIENTED, AMBULATORY WITH A WALKER AND ASSIST. NO COMPLAINTS OF PAIN AND NO SIGNS OF DISTRESS. ENCOURAGE AND ASSISTED TO REPOSITION EVERY 2 HRS. DUE MEDICATIONS TOLERATED WELL. WITH SLIGHT FEVER LAST NIGHT, GIVEN WITH TYLENOL PER PT. REQUEST AND APPLY COLD COMPRESSED. ALL NEEDS MET.
[2018-11-17 07:35] VITALS: BP 125/68; PULSE 84; RESP 16
[2018-11-17] MEDS ORDERED: VANCOMYCIN 1 GM 250 ML IVPB SCH (08:00)
[2018-11-17] MEDS: INSULIN ASPART [NOVOLOG] 3 ML PEN SC SCH ×7 (08:00→20:18)
[2018-11-17] MEDS: TAMSULOSIN (SR) 0.4 MG CAP PO SCH (08:31)
[2018-11-17] MEDS: GABAPENTIN 100 MG CAP PO SCH ×3 (08:32→20:07)
[2018-11-17] MEDS: ASPIRIN 81 MG TAB PO SCH (08:32)
[2018-11-17] MEDS: VANCOMYCIN 1 GM 250 ML IVPB SCH ×2 (08:32→22:23)
[2018-11-17] MEDS: LISINOPRIL 5 MG TAB PO SCH (08:32)
[2018-11-17] MEDS: ACETAMINOPHEN 325 MG TAB PO PRN ×2 (08:34→20:12)
[2018-11-17 14:19] VITALS: BP 85/52; PULSE 82; RESP 16
--- NOTE | 2018-11-17 15:10 | CONS ---
Date/Time of Note Date/Time of Note DATE: 11/17/18 TIME: 15:09 Assessment/Plan Assessment/Plan Chief Complaint/Hosp Course Patient is alert complaining of right foot pain, T-max last night 101.22 current 99 WBC 7.1 no shift no bands BUN 21 creatinine 1.16 Microbiology: Blood cultures growing gram-positive cocci in clusters 1 out of 2 sets Antimicrobials: Vancomycin and Levaquin Physical examination: Well-nourished well-developed middle-aged man who is awake in no distress. Head atraumatic normocephalic sclera nonicteric. Neck is supple chest rise symmetrical breath sounds clear. Heart: S1-S2. Abdomen soft bowel sounds present. Extremities with right foot deformed and with area of erythema on the medial part. Assessment: 1. Systemic inflammatory response syndrome with fevers and leukocytosis 2. Right foot cellulitis 3. Gram-positive cocci bacteremia possibly secondary to #2 4. Diabetes Plan: Repeat blood cultures, check right foot MRI, continue on current antibiotics, consider podiatry eval Consultation Date/Type/Reason Admit Date/Time Nov 15, 2018 at 11:09 Initial Consult Date Type of Consult ID Exam/Review of Systems Vital Signs Vitals Vital Signs Date Temp Pulse Resp B/P (MAP) Pulse Ox O2 O2 Flow FiO2 Time Delivery Rate 11/17/18 99.0 82 16 85/52 (63) 99 14:19 11/15/18 Room Air 13:53 Intake and Output 11/16/18 11/16/18 11/17/18 1515:00 23:00 07:00 IntakeIntake Total 1170 ml 1205 ml 1600 ml OutputOutput Total 1500 ml 400 ml 500 ml BalanceBalance -330 ml 805 ml 1100 ml Medications Medications Current Medications Aspirin (Aspirin) 81 mg DAILY PO Last administered on 11/17/18at 08:32; Admin Dose 81 MG; Start 11/15/18 at 09:00 Atorvastatin Calcium (Lipitor) 20 mg QHS PO Last administered on 11/16/18at 20:40; Admin Dose 20 MG; Start 11/14/18 at 21:00 Gabapentin (Neurontin) 100 mg TID PO Last administered on 11/17/18at 13:50; Admin Dose 100 MG; Start 11/14/18 at 21:00 Lisinopril (Zestril) 5 mg DAILY PO Last administered on 11/17/18 08:32; Admin Dose 5 MG; Start 11/15/18 at 09:00 Tamsulosin HCl (Flomax) 0.4 mg DAILY PO Last administered on 11/17/18 08:31; Admin Dose 0.4 MG; Start 11/15/18 at 09:00 Sodium Chloride 1,000 ml @ 75 mls/hr [id number] IV Last administered on 11/17/18at 11:44; Admin Dose 75 MLS/HR; Start 11/14/18 at 17:58 IV Flush (NS 3 ml) 3 ml PER PROTOCOL IV ; Start 11/14/18 at 18:00 Metoclopramide HCl (Reglan) 10 mg Q6H PRN IV NAUSEA AND/OR VOMITING Last administered on 11/16/18 08:27; Admin Dose 10 MG; Start 11/14/18 at 18:00 Acetaminophen (Tylenol Tab) 650 mg Q6H PRN PO PAIN LEVEL 1-3 OR FEVER Last administered on 11/17/18at 08:34; Admin Dose 650 MG; Start 11/14/18 at 18:00 Pantoprazole (Protonix Tab) 40 mg DAILY@0600 PO Last administered on 11/17/18at 05:49; Admin Dose 40 MG; Start 11/14/18 at 18:30 Senna (Senokot) 2 tab BID PRN PO CONSTIPATION; Start 11/14/18 at 18:30 Diagnostic Test (Pha) (Accu-Chek) 1 ea 02 XX ; Start 11/15/18 at 02:00 Insulin Glargine (Lantus) 21 units DAILY@2000 SC Last administered on 11/16/18at 22:44; Admin Dose 21 UNITS; Start 11/14/18 at 20:00 Insulin Aspart (Novolog Insulin Pen) 7 unit WITH MEALS SC Last administered on 11/17/18at 12:39; Admin Dose 7 UNIT; Start 11/15/18 at 08:00 Insulin Aspart (Novolog Insulin Pen) NOVOLOG *MODERATE* ALGORITHM WITH MEALS BEDTIME SC Last administered on 11/17/18at 12:40; Admin Dose 4 UNIT; Start 11/14/18 at 21:00 Miscellaneous Information 1 ea NOTE XX ; Start 11/14/18 at 19:00 Glucose (Glutose) 15 gm Q15M PRN PO DECREASED GLUCOSE; Start 11/14/18 at 19:00 Glucose (Glutose) 22.5 gm Q15M PRN PO DECREASED GLUCOSE; Start 11/14/18 at 19:00 Dextrose (D50w Syringe) 25 ml Q15M PRN IV DECREASED GLUCOSE; Start 11/14/18 at 19:00 Dextrose (D50w Syringe) 50 ml Q15M PRN IV DECREASED GLUCOSE; Start 11/14/18 at 19:00 Glucagon (Glucagen) 1 mg Q15M PRN IM DECREASED GLUCOSE; Start 11/14/18 at 19:00 Glucose (Glutose) 15 gm Q15M PRN BUCCAL DECREASED GLUCOSE; Start 11/14/18 at 19:00 Levofloxacin (Levaquin) 250 mg DAILY@06 PO Last administered on 11/17/18at 05:49; Admin Dose 250 MG; Start 11/16/18 at 06:00 Vancomycin HCl (Vanco Iv Per Pharmacy) VANCOMYCIN PER PHARMACY PER PROTOCOL XX ; Start 11/16/18 at 07:00 Vancomycin HCl 250 ml @ 125 mls/hr Q12H IVPB Last administered on 11/17/18at 08:32; Admin Dose 125 MLS/HR; Start 11/16/18 at 21:00 Heparin Sodium (Porcine) (Heparin (5000 Units/1ml)) 5,000 unit Q8 SC Last administered on 11/17/18at 14:17; Admin Dose 5,000 UNIT; Start 11/16/18 at 14:00 Results Result Diagram: 11/17/18 0617 11/17/18 0617 Results 24 hrs Laboratory Tests Test 11/16/18 17:45 11/16/18 20:38 11/16/18 22:41 11/17/18 06:17 Bedside Glucose 181 149 151 White Blood 7.1 Count Red Blood Count 2.81 L Hemoglobin 8.3 L Hematocrit 24.6 L Mean Corpuscular 87.5 Volume Mean Corpuscular 29.5 Hemoglobin Mean Corpuscular 33.7 Hemoglobin Alda nt Red Cell 12.3 Distribution Width Platelet Count 299 Mean Platelet 9.3 Volume Immature 0.300 Granulocytes % Neutrophils % 67.3 Lymphocytes % 20.6 Monocytes % 9.7 Eosinophils % 1.7 Basophils % 0.4 Nucleated Red 0.0 Blood Cells % Immature 0.020 Granulocytes # Neutrophils # 4.8 Lymphocytes # 1.5 Monocytes # 0.7 Eosinophils # 0.1 Basophils # 0.0 Nucleated Red 0.0 Blood Cells # Sodium Level 138 Potassium Level 4.2 Chloride Level 103 Carbon Dioxide 26 Level Anion Gap 9 Blood Urea 21 H Nitrogen Creatinine 1.16 Est Glomerular > 60 Filtrat Rate mL/min Glucose Level 136 Calcium Level 9.1 Test 11/17/18 08:04 11/17/18 12:11 Bedside Glucose 120 204 IRIS SANTIZO NP Nov 17, 2018 15:10
--- NOTE | 2018-11-17 15:13 | NUR ---
PT NOTE Attempted to see pt for skilled PT this PM, unable due to pt refusing PT stating he tried to get up earlier today couldn't, just doesn't feel well: dizzy, chills; also citing apparent foot inflammatory process. Noted foot is warm to touch, red, swollen. RN informed of pt refusal. Will follow up tomorrow as apprropriate.
--- NOTE | 2018-11-17 15:22 | RADRPT ---
Echocardiogram Report Patient Name: TOM HALE Gender: Male Date: 1960 Study Date: 16-Nov-2018 Machinist Helper: Jacey Morrison [facility] Location: 2285-A Ref. Physician: CLOVIS JACKMAN Quality: Adequate Procedures: Transthoracic echocardiogram with complete 2D, M-Mode, and doppler examination. Indications: Endocarditis. 2D/M Mode Doppler Measurement Value Normal Ranges Measurement Value Normal Ranges LVIDd 2D 4.1 3.5 - 5.6 cm AV Peak Christiano 1.3 m/sec LVIDs 2D 2.6 2.1 - 4.1 cm AV Peak PG 7.0 mmHg FS 2D 37.5 % LVOT Peak Christiano 0.9 m/sec LVPWd 2D 1.0 0.6 - 1.1 cm LVOT Peak PG 3.0 mmHg IVSd 2D 0.9 0.6 - 1.1 cm MV E Peak Christiano 0.9 m/sec IVS/LVPW 2D 0.8 MV A Peak Christiano 0.8 m/sec AoR Diam 2D 2.6 2.0 - 3.7 cm MV E/A 1.1 LA/Ao 2D 1 0 - 1 MV Decel Time 158 msec EDV 2D 70.4 cm3 MV E/A 1.1 ESV 2D 17.2 cm3 TV E Peak Christiano 0.8 m/sec LA Dimen 2D 3.3 2.3 - 4.0 cm Findings Left Ventricle: Normal left ventricular systolic function. Normal left ventricular cavity size. Normal left ventricular wall thickness. Ejection fraction is visually estimated at 55 %. Right Ventricle: Normal right ventricular size. Normal right ventricular systolic function. Left Atrium: The left atrium is normal in size. Right Atrium: The right atrium is normal in size. Mitral Valve: Mitral valve leaflets appear mildly thickened. Trace mitral regurgitation. Aortic Valve: Normal appearance of the aortic valve. No significant aortic stenosis or insufficiency. Tricuspid Valve: Tricuspid valve not well visualized. There is trace tricuspid regurgitation. Pulmonic Valve: Pulmonic valve not well visualized. Pericardium: Normal pericardium with no significant pericardial effusion. Aorta: Normal aortic root. IVC: Normal size and normal respiratory collapse consistent with normal right atrial pressure. Conclusions Normal left ventricular systolic function. Normal left ventricular cavity size. Normal left ventricular wall thickness. Ejection fraction is visually estimated at 55 %. Normal right ventricular size. Normal right ventricular systolic function. The left atrium is normal in size. The right atrium is normal in size. No significant valvular stenosis or regurgitation seen. Normal pericardium with no significant pericardial effusion. Electronically Signed By: Alexis Lora 17-Nov-2018 15:22:47 -0800 Patient Name: TOM HALE Study Date: 16-Nov-2018 [id number]
--- NOTE | 2018-11-17 17:52 | PN ---
Date/Time of Note Date/Time of Note DATE: 11/17/18 TIME: 17:41 Assessment/Plan VTE Prophylaxis Risk score (from Nsg)>0 risk: 3 SCD applied (from Nsg): Yes Pharmacological prophylaxis: heparin Lines/Catheters IV Catheter Type (from Nrsg): Peripheral IV Urinary Cath still in place: No Assessment/Plan Hospital Course S: Patient seen by infectious disease team earlier today. O: VS -see below PE: Gen: Well appearing man in no acute distress. Eyes: PERRL, no icterus HEENT: Moist mucous membranes, clear oropharynx Neck: No lymphadenopathy, no JVD Card: Regular rate and rhythm, no murmurs Pulm: Clear to auscultation bilaterally Back: No CVA tenderness. No midline spine tenderness. Abd: Soft, nondistended, mild TTP RLQ. Ext: L foot transmetatarsal amputation, clean appearing. R foot with large medial bunion and well-healed dry ulcer underneath it 2D echo November 16, 2018: Conclusions Normal left ventricular systolic function. Normal left ventricular cavity size. Normal left ventricular wall thickness. Ejection fraction is visually estimated at 55 %. Normal right ventricular size. Normal right ventricular systolic function. The left atrium is normal in size. The right atrium is normal in size. No significant valvular stenosis or regurgitation seen. Normal pericardium with no significant pericardial effusion. Assessment/Plan: 58M with history of IDDM, stage 2 CKD, peripheral vascular disease status post foot amputations for osteomyelitis as well as severe diabetic retinopathy; presents with sepsis, ALMAS, hypotension, PO intolerance, flank pain. #Sepsis-likely secondary to cellulitis and positive bacteremia. Flank pain may represent pyelo but his UTI shows no evidence of infection, urine culture also negative- May have been having viral gastroenteritis; reported PO intolerance on admission but now tolerating diet fine- Blood cultures growing 1/2 gram positive cocci. -For now continue empiric levofloxacin and vanco -Follow-up MRI of the right foot and further recommendations from infectious disease team. #Flank pain- Renal ultrasound shows nonobstructing stone, no e/o pyelo- Now resolving. -Monitor #PO intolerance- Resolved -Monitor #ALMAS- Likely due to dehydration- Now resolved. -Monitor, patient is pending outpatient nephrology appointment. #Chest pain- History not typical of cardiac chest pain- Trops negative, EKG with poor R wave progression otherwise no ST-T change concerning for ischemia. -Continue Protonix for suspected GERD. #IDDM-patient had hyperglycemic on admission, blood sugars now stable. A1c equals 8.2 - Cont home insulin due to poor PO intake. DVT: SCDs GI: Protonix Exam/Review of Systems Vital Signs Vitals Vital Signs Date Temp Pulse Resp B/P (MAP) Pulse Ox O2 O2 Flow FiO2 Time Delivery Rate 11/17/18 99.0 82 16 85/52 (63) 99 14:19 11/15/18 Room Air 13:53 Intake and Output 11/16/18 11/16/18 11/17/18 1515:00 23:00 07:00 IntakeIntake Total 1170 ml 1205 ml 1600 ml OutputOutput Total 1500 ml 400 ml 500 ml BalanceBalance -330 ml 805 ml 1100 ml Medications Medications Current Medications Aspirin (Aspirin) 81 mg DAILY PO Last administered on 11/17/18at 08:32; Admin Dose 81 MG; Start 11/15/18 at 09:00 Atorvastatin Calcium (Lipitor) 20 mg QHS PO Last administered on 11/16/18at 20:40; Admin Dose 20 MG; Start 11/14/18 at 21:00 Gabapentin (Neurontin) 100 mg TID PO Last administered on 11/17/18at 13:50; Admin Dose 100 MG; Start 11/14/18 at 21:00 Lisinopril (Zestril) 5 mg DAILY PO Last administered on 11/17/18at 08:32; Admin Dose 5 MG; Start 11/15/18 at 09:00 Tamsulosin HCl (Flomax) 0.4 mg DAILY PO Last administered on 11/17/18at 08:31; Admin Dose 0.4 MG; Start 11/15/18 at 09:00 Sodium Chloride 1,000 ml @ 75 mls/hr [id number] IV Last administered on 11/17/18at 11:44; Admin Dose 75 MLS/HR; Start 11/14/18 at 17:58 IV Flush (NS 3 ml) 3 ml PER PROTOCOL IV ; Start 11/14/18 at 18:00 Metoclopramide HCl (Reglan) 10 mg Q6H PRN IV NAUSEA AND/OR VOMITING Last administered on 11/16/18at 08:27; Admin Dose 10 MG; Start 11/14/18 at 18:00 Acetaminophen (Tylenol Tab) 650 mg Q6H PRN PO PAIN LEVEL 1-3 OR FEVER Last administered on 11/17/18at 08:34; Admin Dose 650 MG; Start 11/14/18 at 18:00 Pantoprazole (Protonix Tab) 40 mg DAILY@0600 PO Last administered on 11/17/18at 05:49; Admin Dose 40 MG; Start 11/14/18 at 18:30 Senna (Senokot) 2 tab BID PRN PO CONSTIPATION; Start 11/14/18 at 18:30 Diagnostic Test (Pha) (Accu-Chek) 1 ea 02 XX ; Start 11/15/18 at 02:00 Insulin Glargine (Lantus) 21 units DAILY@2000 SC Last administered on 11/16/18at 22:44; Admin Dose 21 UNITS; Start 11/14/18 at 20:00 Insulin Aspart (Novolog Insulin Pen) 7 unit WITH MEALS SC Last administered on 11/17/18at 12:39; Admin Dose 7 UNIT; Start 11/15/18 at 08:00 Insulin Aspart (Novolog Insulin Pen) NOVOLOG *MODERATE* ALGORITHM WITH MEALS BEDTIME SC Last administered on 11/17/18at 12:40; Admin Dose 4 UNIT; Start 11/14/18 at 21:00 Miscellaneous Information 1 ea NOTE XX ; Start 11/14/18 at 19:00 Glucose (Glutose) 15 gm Q15M PRN PO DECREASED GLUCOSE; Start 11/14/18 at 19:00 Glucose (Glutose) 22.5 gm Q15M PRN PO DECREASED GLUCOSE; Start 11/14/18 at 19:00 Dextrose (D50w Syringe) 25 ml Q15M PRN IV DECREASED GLUCOSE; Start 11/14/18 at 19:00 Dextrose (D50w Syringe) 50 ml Q15M PRN IV DECREASED GLUCOSE; Start 11/14/18 at 19:00 Glucagon (Glucagen) 1 mg Q15M PRN IM DECREASED GLUCOSE; Start 11/14/18 at 19:00 Glucose (Glutose) 15 gm Q15M PRN BUCCAL DECREASED GLUCOSE; Start 11/14/18 at 19:00 Levofloxacin (Levaquin) 250 mg DAILY@06 PO Last administered on 11/17/18at 05:49; Admin Dose 250 MG; Start 11/16/18 at 06:00 Vancomycin HCl (Vanco Iv Per Pharmacy) VANCOMYCIN PER PHARMACY PER PROTOCOL XX ; Start 11/16/18 at 07:00 Vancomycin HCl 250 ml @ 125 mls/hr Q12H IVPB Last administered on 11/17/18at 08:32; Admin Dose 125 MLS/HR; Start 11/16/18 at 21:00 Heparin Sodium (Porcine) (Heparin (5000 Units/1ml)) 5,000 unit Q8 SC Last administered on 11/17/18at 14:17; Admin Dose 5,000 UNIT; Start 11/16/18 at 14:00 Miscellaneous Information (*Rx Drug Level Order Reminder*) VANCO TR AT 2,000 ONCE ONCE XX ; Start 11/17/18 at 20:00; Stop 11/17/18 at 20:01 Results Result Diagram: 11/17/18 0617 11/17/18 0617 Results 24 hrs Laboratory Tests Test 11/16/18 17:45 11/16/18 20:38 11/16/18 22:41 11/17/18 06:17 Bedside Glucose 181 149 151 White Blood 7.1 Count Red Blood Count 2.81 L Hemoglobin 8.3 L Hematocrit 24.6 L Mean Corpuscular 87.5 Volume Mean Corpuscular 29.5 Hemoglobin Mean Corpuscular 33.7 Hemoglobin Alda nt Red Cell 12.3 Distribution Width Platelet Count 299 Mean Platelet 9.3 Volume Immature 0.300 Granulocytes % Neutrophils % 67.3 Lymphocytes % 20.6 Monocytes % 9.7 Eosinophils % 1.7 Basophils % 0.4 Nucleated Red 0.0 Blood Cells % Immature 0.020 Granulocytes # Neutrophils # 4.8 Lymphocytes # 1.5 Monocytes # 0.7 Eosinophils # 0.1 Basophils # 0.0 Nucleated Red 0.0 Blood Cells # Sodium Level 138 Potassium Level 4.2 Chloride Level 103 Carbon Dioxide 26 Level Anion Gap 9 Blood Urea 21 H Nitrogen Creatinine 1.16 Est Glomerular > 60 Filtrat Rate mL/min Glucose Level 136 Calcium Level 9.1 Test 11/17/18 08:04 11/17/18 12:11 11/17/18 17:35 Bedside Glucose 120 204 215 JESSICA LARSON Nov 17, 2018 17:52
--- NOTE | 2018-11-17 18:50 | NUR ---
END OF SHIFT REPORT: PT IS STABLE ALL DUE MED GIVEN TOLERATED WELL.PT DENIES ANY PAIN. BS CHECKED . CALL LIGHT WITHIN REACH . WILL FOLLOW UP
[2018-11-17 18:59] VITALS: BP 123/58; PULSE 93
[2018-11-17 19:48] VITALS: BP_SYST 13; BP_SYST 130; BP_DIAS 67; PULSE 89; RESP 18
[2018-11-17] MEDS: ATORVASTATIN 20 MG TAB PO SCH (20:07)
[2018-11-17] MEDS: INSULIN GLARGINE [LANTus] (100 UNITS/ML) SYG SC SCH (20:10)
[2018-11-18 01:42] VITALS: BP 118/62; PULSE 69; RESP 18
[2018-11-18] MEDS: ACCU-CHEK XX SCH (02:00)
[2018-11-18] MEDS: SOD CHLORIDE 0.9% 1,000 ML IV SCH ×3 (03:34→20:07)
[2018-11-18] MEDS: LEVOFLOXACIN 250 MG TAB PO SCH (06:07)
[2018-11-18] MEDS: PANTOPRAZOLE (EC) 40 MG TAB PO SCH (06:07)
[2018-11-18] MEDS: HEPARIN 5,000 UNIT/1 ML VIAL SC SCH ×3 (06:09→22:08)
--- NOTE | 2018-11-18 06:20 | NUR ---
EOSS: Pt. slept most of the night. Blood glucose was monitored, no sliding scale coverage needed. Gave insulin as ordered. All due meds given. Pt. had a fever during the night, but went away after Tylenol and cooling measures. Bed alarm on, bed in lowest position, pt. belongings nearby, pt. free from injury. Will endorse care to oncoming nurse
[2018-11-18 07:52] VITALS: BP 113/56; PULSE 80; RESP 18
--- NOTE | 2018-11-18 08:04 | NUR ---
VANCOMYCIN PER PHARMACY NOTE VANCO TR = 14.0 PLEASE CONTINUE VANCOMYCIN 1 GRAM IV Q12 HOURS FOR NOW. PHARMACY WILL FOLLOW. THANK YOU.
[2018-11-18] MEDS: LISINOPRIL 5 MG TAB PO SCH (08:26)
[2018-11-18] MEDS: GABAPENTIN 100 MG CAP PO SCH ×3 (08:26→22:03)
[2018-11-18] MEDS: VANCOMYCIN 1 GM 250 ML IVPB SCH ×2 (08:27→20:07)
[2018-11-18] MEDS: TAMSULOSIN (SR) 0.4 MG CAP PO SCH (08:27)
[2018-11-18] MEDS: ASPIRIN 81 MG TAB PO SCH (08:28)
[2018-11-18] MEDS: INSULIN ASPART [NOVOLOG] 3 ML PEN SC SCH ×7 (08:30→20:13)
[2018-11-18] MEDS: SENNA TAB PO PRN (08:35)
[2018-11-18 14:37] VITALS: BP 108/58; PULSE 89; RESP 18
--- NOTE | 2018-11-18 15:00 | NUR ---
PT NOTE CORINA Guerrero cleared pt for PT. Attempted pt x2 today, AM and PM, however pt refused both times. Educated pt on benefits and importance of PT and OOB activities and despite max encouragement pt continued to refuse. Stated, "I have a lot of pain on both my feet. The doctor said not to put too much pressure on my feet. I don't think I can get up today." Will f/u if time permits
--- NOTE | 2018-11-18 15:21 | PN ---
Date/Time of Note Date/Time of Note DATE: 11/18/18 TIME: 15:20 Assessment/Plan VTE Prophylaxis Risk score (from Nsg)>0 risk: 3 SCD applied (from Nsg): Yes Pharmacological prophylaxis: other Lines/Catheters IV Catheter Type (from Nrsg): Peripheral IV Urinary Cath still in place: No Assessment/Plan Hospital Course S: Patient had fever yesterday evening, but none today thus far. Still awaiting MRI of the foot to be performed. O: VS -see below PE: Gen: Well appearing man in no acute distress. Eyes: PERRL, no icterus HEENT: Moist mucous membranes, clear oropharynx Neck: No lymphadenopathy, no JVD Card: Regular rate and rhythm, no murmurs Pulm: Clear to auscultation bilaterally Back: No CVA tenderness. No midline spine tenderness. Abd: Soft, nondistended, mild TTP RLQ. Ext: L foot transmetatarsal amputation, clean appearing. R foot with large medial bunion and well-healed dry ulcer underneath it 2D echo November 16, 2018: Conclusions Normal left ventricular systolic function. Normal left ventricular cavity size. Normal left ventricular wall thickness. Ejection fraction is visually estimated at 55 %. Normal right ventricular size. Normal right ventricular systolic function. The left atrium is normal in size. The right atrium is normal in size. No significant valvular stenosis or regurgitation seen. Normal pericardium with no significant pericardial effusion. Assessment/Plan: 58M with history of IDDM, stage 2 CKD, peripheral vascular disease status post foot amputations for osteomyelitis as well as severe diabetic retinopathy; presents with sepsis, ALMAS, hypotension, PO intolerance, flank pain. #Sepsis-likely secondary to cellulitis and positive bacteremia. Flank pain may represent pyelo but his UTI shows no evidence of infection, urine culture also negative- May have been having viral gastroenteritis; reported PO intolerance on admission but now tolerating diet fine- Blood cultures growing 1/2 gram positive cocci. -For now continue empiric levofloxacin and vanco -Follow-up MRI of the right foot and further recommendations from infectious disease team. #Flank pain- Renal ultrasound shows nonobstructing stone, no e/o pyelo- Now resolving. -Monitor #PO intolerance- Resolved -Monitor #ALMAS- Likely due to dehydration- Now resolved. -Monitor, patient is pending outpatient nephrology appointment. #Chest pain- History not typical of cardiac chest pain- Trops negative, EKG with poor R wave progression otherwise no ST-T change concerning for ischemia. -Continue Protonix for suspected GERD. #IDDM-patient had hyperglycemic on admission, blood sugars now stable. A1c equals 8.2 - Cont home insulin due to poor PO intake. DVT: SCDs GI: Protonix Exam/Review of Systems Vital Signs Vitals Vital Signs Date Temp Pulse Resp B/P (MAP) Pulse Ox O2 O2 Flow FiO2 Time Delivery Rate 11/18/18 98.6 89 18 108/58 100 14:37 (75) 11/15/18 Room Air 13:53 Intake and Output 11/17/18 11/17/18 11/18/18 1515:00 23:00 07:00 IntakeIntake Total 1410 ml 1075 ml 1423 ml OutputOutput Total 1000 ml 900 ml 1500 ml BalanceBalance 410 ml 175 ml -77 ml JESSICA LARSON Nov 18, 2018 15:21
--- NOTE | 2018-11-18 18:18 | CONS ---
Date/Time of Note Date/Time of Note DATE: 11/18/18 TIME: 18:13 Assessment/Plan Assessment/Plan Additional Assessment/Plan 1) Right foot charcot neuroarthropathy 2) Pre-ulcerative lesion to right foot 3) Left foot hx of TMA 4) Right foot hx of partial 5th ray resection 5) right foot claw toe deformities 6) DM2 with peripheral neuropathy 7) PAD Plan: Reviewed X-rays and likely related to charcot destructive changes to the 1st met cuneiform joint region. MRI and non-invasive arterial studies ordered. Discussed with patient that surgical reconstruction will be needed and will plan for the future. Recommend non-weight bearing to right foot and keep elevated. Continue with IV abx as recommended per ID. Medical decisions, treatment, and plan coordinated with Dr. Keyes. Consultation Date/Type/Reason Admit Date/Time Nov 15, 2018 at 11:09 Hx of Present Illness 58 y/o diabetic M patient presents to the floor with localized area of erythema with a foot collapse. The patient explains the archie changes has occurred within the past 2-3 weeks and has noticed his foot collapse. Reports intermittent pain to the right foot which is worsened with weight bearing activities. Patient used to work in the [employer] industry but is on disability. Patient has a history of left foot TMA and partial 5th ray resection to the right foot. Patient was admitted because of dehydration, flank pains and having nausea/vomiting. No other constitutional symptoms. ROS: negative except for HPI Past Medical History IDDM, stage 2 CKD, peripheral vascular disease status post foot amputations for osteomyelitis as well as severe diabetic retinopathy Medications Current Medications Aspirin (Aspirin) 81 mg DAILY PO Last administered on 11/18/18at 08:28; Admin Dose 81 MG; Start 11/15/18 at 09:00 Atorvastatin Calcium (Lipitor) 20 mg QHS PO Last administered on 11/17/18at 20:07; Admin Dose 20 MG; Start 11/14/18 at 21:00 Gabapentin (Neurontin) 100 mg TID PO Last administered on 11/18/18at 15:20; Admin Dose 100 MG; Start 11/14/18 at 21:00 Lisinopril (Zestril) 5 mg DAILY PO Last administered on 11/18/18at 08:26; Admin Dose 5 MG; Start 11/15/18 at 09:00 Tamsulosin HCl (Flomax) 0.4 mg DAILY PO Last administered on 11/18/18 08:27; Admin Dose 0.4 MG; Start 11/15/18 at 09:00 Sodium Chloride 1,000 ml @ 75 mls/hr [id number] IV Last administered on 11/18/18 03:34; Admin Dose 75 MLS/HR; Start 11/14/18 at 17:58 IV Flush (NS 3 ml) 3 ml PER PROTOCOL IV ; Start 11/14/18 at 18:00 Metoclopramide HCl (Reglan) 10 mg Q6H PRN IV NAUSEA AND/OR VOMITING Last administered on 11/16/18 08:27; Admin Dose 10 MG; Start 11/14/18 at 18:00 Acetaminophen (Tylenol Tab) 650 mg Q6H PRN PO PAIN LEVEL 1-3 OR FEVER Last administered on 11/17/18 20:12; Admin Dose 650 MG; Start 11/14/18 at 18:00 Pantoprazole (Protonix Tab) 40 mg DAILY@0600 PO Last administered on 11/18/18 06:07; Admin Dose 40 MG; Start 11/14/18 at 18:30 Senna (Senokot) 2 tab BID PRN PO CONSTIPATION Last administered on 11/18/18 08:35; Admin Dose 2 TAB; Start 11/14/18 at 18:30 Diagnostic Test (Pha) (Accu-Chek) 1 ea 02 XX ; Start 11/15/18 at 02:00 Insulin Glargine (Lantus) 21 units DAILY@2000 SC Last administered on 11/17/18at 20:10; Admin Dose 21 UNITS; Start 11/14/18 at 20:00 Insulin Aspart (Novolog Insulin Pen) 7 unit WITH MEALS SC Last administered on 11/18/18at 17:50; Admin Dose 7 UNIT; Start 11/15/18 at 08:00 Insulin Aspart (Novolog Insulin Pen) NOVOLOG *MODERATE* ALGORITHM WITH MEALS BEDTIME SC Last administered on 11/18/18at 17:49; Admin Dose 2 UNIT; Start 11/14/18 at 21:00 Miscellaneous Information 1 ea NOTE XX ; Start 11/14/18 at 19:00 Glucose (Glutose) 15 gm Q15M PRN PO DECREASED GLUCOSE; Start 11/14/18 at 19:00 Glucose (Glutose) 22.5 gm Q15M PRN PO DECREASED GLUCOSE; Start 11/14/18 at 19:00 Dextrose (D50w Syringe) 25 ml Q15M PRN IV DECREASED GLUCOSE; Start 11/14/18 at 19:00 Dextrose (D50w Syringe) 50 ml Q15M PRN IV DECREASED GLUCOSE; Start 11/14/18 at 19:00 Glucagon (Glucagen) 1 mg Q15M PRN IM DECREASED GLUCOSE; Start 11/14/18 at 19:00 Glucose (Glutose) 15 gm Q15M PRN BUCCAL DECREASED GLUCOSE; Start 11/14/18 at 19:00 Levofloxacin (Levaquin) 250 mg DAILY@06 PO Last administered on 11/18/18at 06:07; Admin Dose 250 MG; Start 11/16/18 at 06:00 Vancomycin HCl (Vanco Iv Per Pharmacy) VANCOMYCIN PER PHARMACY PER PROTOCOL XX ; Start 11/16/18 at 07:00 Vancomycin HCl 250 ml @ 125 mls/hr Q12H IVPB Last administered on 11/18/18at 08:27; Admin Dose 125 MLS/HR; Start 11/16/18 at 21:00 Heparin Sodium (Porcine) (Heparin (5000 Units/1ml)) 5,000 unit Q8 SC Last administered on 11/18/18at 15:22; Admin Dose 5,000 UNIT; Start 11/16/18 at 14:00 Allergies: Coded Allergies: No Known Allergy (Unverified , 11/14/18) Past Surgical History retina surgery, right shoulder surgery, left foot TMA and right foot partial 5th ray resection. Family History Significant Family History: heart disease, diabetes Social History Alcohol Use: none Smoking Status: Never smoker Drug Use: none Exam/Review of Systems Vital Signs Vitals Vital Signs Date Temp Pulse Resp B/P (MAP) Pulse Ox O2 O2 Flow FiO2 Time Delivery Rate 11/18/18 98.6 89 18 108/58 100 14:37 (75) 11/15/18 Room Air 13:53 Intake and Output 11/17/18 11/17/18 11/18/18 1515:00 23:00 07:00 IntakeIntake Total 1410 ml 1075 ml 1423 ml OutputOutput Total 1000 ml 900 ml 1500 ml BalanceBalance 410 ml 175 ml -77 ml Exam Popliteal pulses palpable unable to palpable DP/PT pulses Capillary refill time less than 3 seconds to digits and TMA stump site. Left foot TMA appreciated Right foot plantar callus Right medial cuneiform region pre-ulcerative lesion with focal erythema, no fluctuance appreciated 1st ray instability appreciated of the right foot. No crepitus or instability appreciated to lesser Tarsometatarsal region or ankle and subtalar joint Absent protective sensations. Right foot digits with rigid contractures Foot X-ray: IMPRESSION: Findings concerning for osteomyelitis centered at the first tarsometatarsal joint with osseous destructive changes and medial displacement/dislocation of the first cuneiform. ML ROSALES DPM Nov 18, 2018 18:18
--- NOTE | 2018-11-18 18:35 | CONS ---
Date/Time of Note Date/Time of Note DATE: 11/18/18 TIME: 18:34 Assessment/Plan Assessment/Plan Chief Complaint/Hosp Course 1230 No acute changes, looks comfortable, no fevers Microbiology: Blood cultures growing gram-positive cocci in clusters 1 out of 2 sets Antimicrobials: Vancomycin and Levaquin Physical examination: Well-nourished well-developed middle-aged man who is awake in no distress. Head atraumatic normocephalic sclera nonicteric. Neck is supple chest rise symmetrical breath sounds clear. Heart: S1-S2. Abdomen soft bowel sounds present. Extremities with right foot deformed and with area of erythema on the medial part. Assessment: 1. Systemic inflammatory response syndrome with fevers and leukocytosis 2. Right foot cellulitis/Charcot/OM 3. Gram-positive cocci bacteremia possibly secondary to #2 4. Diabetes Plan: Stable, podiatry rec-s noted, continue abx, f/u MRI, repeat bld cx negative Consultation Date/Type/Reason Admit Date/Time Nov 15, 2018 at 11:09 Initial Consult Date Type of Consult ID Exam/Review of Systems Vital Signs Vitals Vital Signs Date Temp Pulse Resp B/P (MAP) Pulse Ox O2 O2 Flow FiO2 Time Delivery Rate 11/18/18 98.6 89 18 108/58 100 14:37 (75) 11/15/18 Room Air 13:53 Intake and Output 11/17/18 11/17/18 11/18/18 1414:59 22:59 06:59 IntakeIntake Total 1410 ml 1075 ml 1423 ml OutputOutput Total 1000 ml 900 ml 1500 ml BalanceBalance 410 ml 175 ml -77 ml IRIS SANTIZO NP Nov 18, 2018 18:35
--- NOTE | 2018-11-18 18:50 | NUR ---
END OF SHIFT REPORT: PT IS STABLE NO DISTRESS NOTED AT THIS TIME. ALL DUE MED GIVEN TOLERATED WELL. PT WILL HAVE MRI TODAY. PLAN OF CARE WILL CONTINUE.
[2018-11-18 19:21] VITALS: BP 120/63; PULSE 82; RESP 18
[2018-11-18] MEDS: ATORVASTATIN 20 MG TAB PO SCH (20:07)
[2018-11-18] MEDS: INSULIN GLARGINE [LANTus] (100 UNITS/ML) SYG SC SCH (20:12)
[2018-11-19] MEDS: ACCU-CHEK XX SCH (02:00)
[2018-11-19 02:02] VITALS: BP 119/62; PULSE 91; RESP 18
[2018-11-19] MEDS: ACETAMINOPHEN 325 MG TAB PO PRN ×2 (02:16→16:53)
[2018-11-19] MEDS: SOD CHLORIDE 0.9% 1,000 ML IV SCH ×2 (04:38→17:52)
--- NOTE | 2018-11-19 05:15 | NUR ---
re: shift note pt is alert and oriented, bp stable, fever during the night, medicated with po tylenol. remains on iv vanco and po levaquin. mri done last night, results pending. remains free from injury.
[2018-11-19] MEDS: PANTOPRAZOLE (EC) 40 MG TAB PO SCH (05:47)
[2018-11-19] MEDS: LEVOFLOXACIN 250 MG TAB PO SCH (05:47)
[2018-11-19] MEDS: HEPARIN 5,000 UNIT/1 ML VIAL SC SCH ×3 (05:47→20:43)
[2018-11-19 07:55] VITALS: BP 127/66; PULSE 72; RESP 16
[2018-11-19] MEDS: INSULIN ASPART [NOVOLOG] 3 ML PEN SC SCH ×7 (08:10→20:43)
[2018-11-19] MEDS: LISINOPRIL 5 MG TAB PO SCH (08:18)
[2018-11-19] MEDS: ASPIRIN 81 MG TAB PO SCH (08:18)
[2018-11-19] MEDS: GABAPENTIN 100 MG CAP PO SCH ×3 (08:18→20:33)
[2018-11-19] MEDS: VANCOMYCIN 1 GM 250 ML IVPB SCH ×2 (08:18→20:33)
[2018-11-19] MEDS: TAMSULOSIN (SR) 0.4 MG CAP PO SCH (08:20)
[2018-11-19] MEDS: SENNA TAB PO PRN (09:04)
--- NOTE | 2018-11-19 12:15 | NUR ---
PT NOTE CORINA Mora cleared pt for PT. Attempted to see pt however pt refused. Educated pt on benefits and importance of PT and OOB activities and despite max encouragement from this therapist pt continued to refuse. Stated, "I am not feeling good today. I'm waiting for the doctor. My feet really hurt." Respected pt's wishes. Will f/u if time permits
--- NOTE | 2018-11-19 13:42 | CONS ---
Date/Time of Note Date/Time of Note DATE: 11/19/18 TIME: 13:41 Assessment/Plan Assessment/Plan Chief Complaint/Hosp Course No acute changes, remains afebrile Microbiology: Blood cultures growing gram-positive cocci in clusters 1 out of 2 sets Antimicrobials: Vancomycin and Levaquin Physical examination: Well-nourished well-developed middle-aged man who is awake in no distress. Head atraumatic normocephalic sclera nonicteric. Neck is supple chest rise symmetrical breath sounds clear. Heart: S1-S2. Abdomen soft bowel sounds present. Extremities with right foot deformed and with area of erythema on the medial part. Assessment: 1. Systemic inflammatory response syndrome with fevers and leukocytosis 2. Right foot cellulitis/Charcot/OM 3. Gram-positive cocci bacteremia possibly secondary to #2 4. Diabetes Plan: Stable, MRI noted, continue abx, f/u podiatry rec-s, anticipate dc on IV abx for 6 weeks Consultation Date/Type/Reason Admit Date/Time Nov 15, 2018 at 11:09 Initial Consult Date Type of Consult ID Exam/Review of Systems Vital Signs Vitals Vital Signs Date Temp Pulse Resp B/P (MAP) Pulse Ox O2 O2 Flow FiO2 Time Delivery Rate 11/19/18 98.6 72 16 127/66 98 07:55 (86) 11/15/18 Room Air 13:53 Intake and Output 11/18/18 11/18/18 11/19/18 1414:59 22:59 06:59 IntakeIntake Total 550 ml 1862 ml 1180 ml OutputOutput Total 600 ml 600 ml 1300 ml BalanceBalance -50 ml 1262 ml -120 ml IRIS SANTIZO NP Nov 19, 2018 13:42
[2018-11-19 13:57] VITALS: BP 127/64; PULSE 93; RESP 16
--- NOTE | 2018-11-19 14:15 | PN ---
Date/Time of Note Date/Time of Note DATE: 11/19/18 TIME: 14:06 Assessment/Plan VTE Prophylaxis Risk score (from Nsg)>0 risk: 4 SCD applied (from Nsg): Yes Pharmacological prophylaxis: other Lines/Catheters IV Catheter Type (from Nrsg): Peripheral IV Urinary Cath still in place: No Assessment/Plan Hospital Course S: Patient still with fevers, MRI foot performed and results noted. Seen by podiatry team yesterday and infectious disease team today. O: VS -see below PE: Gen: Well appearing man in no acute distress. Eyes: PERRL, no icterus HEENT: Moist mucous membranes, clear oropharynx Neck: No lymphadenopathy, no JVD Card: Regular rate and rhythm, no murmurs Pulm: Clear to auscultation bilaterally Back: No CVA tenderness. No midline spine tenderness. Abd: Soft, nondistended, mild TTP RLQ. Ext: L foot transmetatarsal amputation, clean appearing. R foot with large medial bunion and well-healed dry ulcer underneath it 2D echo November 16, 2018: Conclusions Normal left ventricular systolic function. Normal left ventricular cavity size. Normal left ventricular wall thickness. Ejection fraction is visually estimated at 55 %. Normal right ventricular size. Normal right ventricular systolic function. The left atrium is normal in size. The right atrium is normal in size. No significant valvular stenosis or regurgitation seen. Normal pericardium with no significant pericardial effusion. MRI foot ankle November 18, 2018: IMPRESSION: 1. Findings compatible with neuropathic joint in the medial midfoot. 2. Subcutaneous edema and focal plantar skin irregularity in the medial midfoot with 3.3 cm fluid collection in the medial midfoot possibly containing punctate foci of gas with surrounding marrow infiltrative signal within the first metatarsal shaft, medial cuneiform, portions of the intermediate cuneiform and second metatarsal shaft compatible with osteomyelitis. Edema at the base of the third metatarsal and lateral cuneiform more likely neuropathic joint changes, although osteomyelitis cannot be completely excluded. Focal edema in the medial distal aspect of the navicular bone may be reactive but focal osteomyelitis cannot be excluded. 3. Status post amputation of the fifth ray to the level of the mid metatarsal shaft. 4. Diffuse soft tissue edema in the visualized foot. 5. Foreign body in the plantar soft tissues of the forefoot in the region of the first metatarsal shaft. Assessment/Plan: 58M with history of IDDM, stage 2 CKD, peripheral vascular disease status post foot amputations for osteomyelitis as well as severe diabetic retinopathy; presents with sepsis, ALMAS, hypotension, PO intolerance, flank pain. #Sepsis-likely secondary to cellulitis and positive bacteremia. Flank pain may represent pyelo but his UTI shows no evidence of infection, urine culture also negative- May have been having viral gastroenteritis; reported PO intolerance on admission but now tolerating diet fine- Blood cultures growing 1 out of 2 bottles coagulase-negative staph. MRI of the foot noted as well, signs of osteomyelitis. -For now continue empiric p.o. levofloxacin and IV Vanco -Follow-up recommendations from podiatry and infectious disease teams -the patient may require PICC placement and 6 weeks of antibiotics? We will discuss with hr business partner consultant teams about this #Flank pain- Renal ultrasound shows nonobstructing stone, no e/o pyelo- Now resolving. -Monitor #PO intolerance- Resolved -Monitor #ALMAS- Likely due to dehydration- Now resolved. -Monitor, patient is pending outpatient nephrology appointment. #Chest pain- History not typical of cardiac chest pain- Trops negative, EKG with poor R wave progression otherwise no ST-T change concerning for ischemia. -Continue Protonix for suspected GERD. #IDDM-patient had hyperglycemic on admission, blood sugars now stable. A1c equals 8.2 - Cont home insulin due to poor PO intake. DVT: SCDs GI: Protonix Exam/Review of Systems Vital Signs Vitals Vital Signs Date Temp Pulse Resp B/P (MAP) Pulse Ox O2 O2 Flow FiO2 Time Delivery Rate 11/19/18 99.1 93 16 127/64 99 13:57 (85) 11/15/18 Room Air 13:53 Intake and Output 11/18/18 11/18/18 11/19/18 1515:00 23:00 07:00 IntakeIntake Total 550 ml 1862 ml 1180 ml OutputOutput Total 600 ml 600 ml 1300 ml BalanceBalance -50 ml 1262 ml -120 ml JESSICA LARSON Nov 19, 2018 14:15
[2018-11-19] MEDS ORDERED: MAGNESIUM SULFATE 2 GM/50 ML 50 ML IVPB ONE (14:30)
[2018-11-19] MEDS ORDERED: LIDOCAINE 1% (MPF) 5 ML VIAL SC ONE (15:00)
--- NOTE | 2018-11-19 16:58 | NUR ---
PICC Insertion. This nurse to 2NE for peripherally inserted central catheter (PICC) insertion. Patient awake, alert, oriented x 4. Patient has had previous PICC's in the past. Procedure reviewed, patient agreed to proceed. Signed consent on chart for PICC. LUE prepped with chlorhexidene, then maximum barrier drape applied. 5 FR double lumen [employer] PICC inserted into brachial vein, 45cm (cut) internal, 0cm exposed, using U/S guidance and sterile technique. CXR performed; tip confirmed in lower 1/3 SVC. Sterile dressing applied. Patient tolerated procedure well.
[2018-11-19 19:11] VITALS: BP 93/52; PULSE 89; RESP 18
--- NOTE | 2018-11-19 19:48 | NUR ---
End of shift summary:Patient in stable condition.V.S within normal limits.BS controlling by medications .PICC placed today .Full report given to next shift RN
[2018-11-19] MEDS: ATORVASTATIN 20 MG TAB PO SCH (20:33)
[2018-11-19] MEDS: INSULIN GLARGINE [LANTus] (100 UNITS/ML) SYG SC SCH (20:42)
[2018-11-20 01:00] VITALS: BP 101/55; PULSE 81; RESP 18
[2018-11-20] MEDS: ACETAMINOPHEN 325 MG TAB PO PRN ×2 (01:13→17:36)
[2018-11-20] MEDS: ACCU-CHEK XX SCH ×2 (02:00→23:41)
--- NOTE | 2018-11-20 05:07 | NUR ---
SHIFT REPORT STABLE THROUGHOUT THE NIGHT.CONTINUE ON IV ANTIBIOTIC AND IV FLUIDS.NEEDS ATTENDED.CALL LIGHT AT REACH.WILL CONTINUE PLAN OF CARE.
[2018-11-20] MEDS: LEVOFLOXACIN 250 MG TAB PO SCH (05:25)
[2018-11-20] MEDS: PANTOPRAZOLE (EC) 40 MG TAB PO SCH (05:26)
[2018-11-20] MEDS: HEPARIN 5,000 UNIT/1 ML VIAL SC SCH ×3 (05:30→21:14)
[2018-11-20 07:46] VITALS: BP 92/54; PULSE 88; RESP 16
[2018-11-20] MEDS: GABAPENTIN 100 MG CAP PO SCH ×3 (08:25→20:22)
[2018-11-20] MEDS: ASPIRIN 81 MG TAB PO SCH (08:25)
[2018-11-20] MEDS: TAMSULOSIN (SR) 0.4 MG CAP PO SCH (08:25)
[2018-11-20] MEDS: LISINOPRIL 5 MG TAB PO SCH (08:25)
[2018-11-20] MEDS: INSULIN ASPART [NOVOLOG] 3 ML PEN SC SCH ×7 (08:50→20:22)
[2018-11-20] MEDS: VANCOMYCIN 1 GM 250 ML IVPB SCH ×2 (10:14→20:22)
--- NOTE | 2018-11-20 12:33 | NUR ---
Vancomycin per Rx Vancomycin trough = 15.6 (drawn at 08:21) Dose = 1 g q12h CC: Gram positive blood culture, osteomyelitis Other antibiotics: Levaquin PO WBC 5 BUN/Scr 15/1.02 A/P: Continue Vancomycin 1 gram IVPB q12h. Pharmacy to follow.
--- NOTE | 2018-11-20 14:40 | PN ---
Date/Time of Note Date/Time of Note DATE: 11/20/18 TIME: 14:37 Assessment/Plan VTE Prophylaxis Risk score (from Nsg)>0 risk: 3 SCD applied (from Nsg): Yes Pharmacological prophylaxis: other Lines/Catheters IV Catheter Type (from Nrsg): PICC Line Central line still needed: Yes Urinary Cath still in place: No Assessment/Plan Hospital Course S: Patient received PICC placement yesterday. O: VS -see below PE: Gen: Well appearing man in no acute distress. Eyes: PERRL, no icterus HEENT: Moist mucous membranes, clear oropharynx Neck: No lymphadenopathy, no JVD Card: Regular rate and rhythm, no murmurs Pulm: Clear to auscultation bilaterally Back: No CVA tenderness. No midline spine tenderness. Abd: Soft, nondistended, mild TTP RLQ. Ext: L foot transmetatarsal amputation, clean appearing. R foot with large medial bunion and well-healed dry ulcer underneath it 2D echo November 16, 2018: Conclusions Normal left ventricular systolic function. Normal left ventricular cavity size. Normal left ventricular wall thickness. Ejection fraction is visually estimated at 55 %. Normal right ventricular size. Normal right ventricular systolic function. The left atrium is normal in size. The right atrium is normal in size. No significant valvular stenosis or regurgitation seen. Normal pericardium with no significant pericardial effusion. MRI foot ankle November 18, 2018: IMPRESSION: 1. Findings compatible with neuropathic joint in the medial midfoot. 2. Subcutaneous edema and focal plantar skin irregularity in the medial midfoot with 3.3 cm fluid collection in the medial midfoot possibly containing punctate foci of gas with surrounding marrow infiltrative signal within the first metatarsal shaft, medial cuneiform, portions of the intermediate cuneiform and second metatarsal shaft compatible with osteomyelitis. Edema at the base of the third metatarsal and lateral cuneiform more likely neuropathic joint changes, although osteomyelitis cannot be completely excluded. Focal edema in the medial distal aspect of the navicular bone may be reactive but focal osteomyelitis cannot be excluded. 3. Status post amputation of the fifth ray to the level of the mid metatarsal shaft. 4. Diffuse soft tissue edema in the visualized foot. 5. Foreign body in the plantar soft tissues of the forefoot in the region of the first metatarsal shaft. Assessment/Plan: 58M with history of IDDM, stage 2 CKD, peripheral vascular disease status post foot amputations for osteomyelitis as well as severe diabetic retinopathy; presents with sepsis, ALAMS, hypotension, PO intolerance, flank pain. #Sepsis-likely secondary to cellulitis and positive bacteremia- reported PO intolerance on admission but now tolerating diet fine- Blood cultures growing 1 out of 2 bottles coagulase-negative staph and gram-positive lizy. MRI of the foot noted as well, signs of osteomyelitis. -For now continue current antibiotics -Follow-up recommendations from podiatry and infectious disease teams - patient again had PICC placement likely will need 6 weeks of antibiotics -Per discussion with consultant [employer] and [employer]. vice president [employer] ) teams, patient also scheduled for likely surgery/debridement in the next few days as well #Flank pain- Renal ultrasound shows nonobstructing stone, no e/o pyelo- Now resolving. -Monitor #PO intolerance- Resolved -Monitor #ALMAS- Likely due to dehydration- Now resolved. -Monitor, patient is pending outpatient nephrology appointment. #Chest pain- History not typical of cardiac chest pain- Trops negative, EKG with poor R wave progression otherwise no ST-T change concerning for ischemia. -Continue Protonix for suspected GERD. #IDDM-patient had hyperglycemic on admission, blood sugars stable. A1c equals 8.2 - Cont home insulin due to poor PO intake. DVT: SCDs GI: Protonix Exam/Review of Systems Vital Signs Vitals Vital Signs Date Temp Pulse Resp B/P (MAP) Pulse Ox O2 O2 Flow FiO2 Time Delivery Rate 11/20/18 98.6 88 16 92/54 (67) 98 Room Air 07:46 Intake and Output 11/19/18 11/19/18 11/20/18 1515:00 23:00 07:00 IntakeIntake Total 1630 ml 1060 ml 1000 ml OutputOutput Total 700 ml 600 ml BalanceBalance 930 ml 460 ml 1000 ml JESSICA LARSON Nov 20, 2018 14:40
[2018-11-20 14:53] VITALS: BP 138/65; PULSE 94; RESP 16
--- NOTE | 2018-11-20 15:26 | PN ---
Date/Time of Note Date/Time of Note DATE: 11/20/18 TIME: 15:26 Assessment/Plan VTE Prophylaxis Risk score (from Nsg)>0 risk: 2 Pharmacological prophylaxis: heparin Lines/Catheters IV Catheter Type (from Nrsg): PICC Line Central line still needed: Yes Assessment/Plan Hospital Course 58 y/o diabetic M patient presents to the floor with localized area of erythema with a foot collapse. The patient explains the archie changes has occurred within the past 2-3 weeks and has noticed his foot collapse. Reports intermittent pain to the right foot which is worsened with weight bearing activities. Patient used to work in the [employer] industry but is on disability. Patient has a history of left foot TMA and partial 5th ray resection to the right foot. Patient was admitted because of dehydration, flank pains and having nausea/vomiting. No other constitutional symptoms. Assessment/Plan 1) Right foot charcot neuroarthropathy 2) Pre-ulcerative lesion to right foot 3) Left foot hx of TMA 4) Right foot hx of partial 5th ray resection 5) right foot claw toe deformities 6) DM2 with peripheral neuropathy 7) PAD Plan: Planning for OR on saturday 7:30am bone resection, biopsy and implant antibiotic spacer. Reviewed X-rays and likely related to charcot destructive changes to the 1st met cuneiform joint region. MRI reviewed. Non-invasive arterial studies revealed: Monophasic waveforms in the bilateral dorsalis pedis with decreased velocities. Decreased velocities in the right posterior tibial artery with monophasic waveforms. Recommend vascular consult. Discussed with patient that surgical reconstruction will be needed and will plan for the future. Recommend non-weight bearing to right foot and keep elevated. Continue with IV abx as recommended per ID and continue with PICC line abx for 6 weeks. Medical decisions, treatment, and plan coordinated with Dr. Keyes. Subjective 24 Hr Interval Summary Free Text/Dictation No acute events overnight Exam/Review of Systems Vital Signs Vitals Vital Signs Date Temp Pulse Resp B/P (MAP) Pulse Ox O2 O2 Flow FiO2 Time Delivery Rate 11/20/18 98.9 94 16 138/65 100 Room Air 14:53 (89) Intake and Output 11/19/18 11/19/18 11/20/18 1414:59 22:59 06:59 IntakeIntake Total 1630 ml 1060 ml 1000 ml OutputOutput Total 700 ml 600 ml BalanceBalance 930 ml 460 ml 1000 ml Exam Popliteal pulses palpable unable to palpable DP/PT pulses Capillary refill time less than 3 seconds to digits and TMA stump site. Left foot TMA appreciated Right foot plantar callus Right medial cuneiform region pre-ulcerative lesion with focal erythema, no fluctuance appreciated 1st ray instability appreciated of the right foot. No crepitus or instability appreciated to lesser Tarsometatarsal region or ankle and subtalar joint Absent protective sensations. Right foot digits with rigid contractures Non-invasive arterial studies: IMPRESSION: Monophasic waveforms in the bilateral dorsalis pedis with decreased velocities. Decreased velocities in the right posterior tibial artery with monophasic wav eforms. MRI 1. Findings compatible with neuropathic joint in the medial midfoot. 2. Subcutaneous edema and focal plantar skin irregularity in the medial midfoot with 3.3 cm fluid collection in the medial midfoot possibly containing punctate foci of gas with surrounding marrow infiltrative signal within the first metatarsal shaft, medial cuneiform, portions of the intermediate cuneiform and second metatarsal shaft compatible with osteomyelitis. Edema at the base of the third metatarsal and lateral cuneiform more likely neuropathic joint changes, although osteomyelitis cannot be completely excluded. Focal edema in the medial distal aspect of the navicular bone may be reactive but focal osteomyelitis cannot be excluded. 3. Status post amputation of the fifth ray to the level of the mid metatarsal shaft. 4. Diffuse soft tissue edema in the visualized foot. 5. Foreign body in the plantar soft tissues of the forefoot in the region of the first metatarsal shaft. ML ROSALES DPM Nov 20, 2018 15:26
[2018-11-20] MEDS: SOD CHLORIDE 0.9% 1,000 ML IV SCH ×2 (16:04→20:23)
[2018-11-20] MEDS: SENNA TAB PO PRN (17:36)
--- NOTE | 2018-11-20 18:05 | NUR ---
END OF SHIFT NOTES: PT STABLE, ALERT & ORIENTED X4. NO DISTRESS NOTED. ANTICIPATE SX ON SATURDAY PER MD ROSALES. CONTINUE ABX, PICC LINE PATENT, PT AMBULATED USING WALKER TO BATHROOM WITHOUT DIFFICULTY. C/O MILD PAIN ON RIGHT FOOT, TYLENOL GIVEN. ACCU CHECK ACHS, INSULIN SUPPLEMENTAL. INSTRUCTED PT TO CALL FOR ASSISTANCE. VS WNL.HOURLY ROUNDING. CALL LIGHT WITHIN REACH.ALL NEEDS MET. NO NEW COMPLAINTS.
--- NOTE | 2018-11-20 19:27 | CONS ---
Date/Time of Note Date/Time of Note DATE: 11/20/18 TIME: 19:26 Assessment/Plan Assessment/Plan Chief Complaint/Hosp Course No acute changes, awake, looks comfortable Microbiology: Blood cultures growing gram-positive cocci in clusters 1 out of 2 sets Antimicrobials: Vancomycin and Levaquin Physical examination: Well-nourished well-developed middle-aged man who is awake in no distress. Head atraumatic normocephalic sclera nonicteric. Neck is supple chest rise symmetrical breath sounds clear. Heart: S1-S2. Abdomen soft bowel sounds present. Extremities with right foot deformed and with area of erythema on the medial part. Assessment: 1. Systemic inflammatory response syndrome with fevers and leukocytosis 2. Right foot cellulitis/Charcot/OM 3. Gram-positive cocci bacteremia possibly secondary to #2 4. Diabetes Plan: Remains stable, continue abx, f/u podiatry rec-s==> plan for debridement, will require IV abx for 6 weeks Consultation Date/Type/Reason Admit Date/Time Nov 15, 2018 at 11:09 Initial Consult Date Type of Consult ID Exam/Review of Systems Vital Signs Vitals Vital Signs Date Temp Pulse Resp B/P (MAP) Pulse Ox O2 O2 Flow FiO2 Time Delivery Rate 11/20/18 98.9 94 16 138/65 100 Room Air 14:53 (89) Intake and Output 11/19/18 11/19/18 11/20/18 1515:00 23:00 07:00 IntakeIntake Total 1630 ml 1060 ml 1000 ml OutputOutput Total 700 ml 600 ml BalanceBalance 930 ml 460 ml 1000 ml IRIS SANTIZO NP Nov 20, 2018 19:27
[2018-11-20 20:00] VITALS: BP 110/59; PULSE 90; RESP 18
[2018-11-20] MEDS: ATORVASTATIN 20 MG TAB PO SCH (20:22)
[2018-11-20] MEDS: INSULIN GLARGINE [LANTus] (100 UNITS/ML) SYG SC SCH (20:25)
[2018-11-21 02:00] VITALS: BP 125/65; PULSE 84; RESP 20
--- NOTE | 2018-11-21 02:50 | NUR ---
Pt's temp is 99.1; Pt refuses to have ice pack applied. Air is turned on, and blankets are removed. Ice water was given; will continue to monitor pt.
[2018-11-21] MEDS: SOD CHLORIDE 0.9% 1,000 ML IV SCH ×3 (05:14→22:27)
[2018-11-21] MEDS: LEVOFLOXACIN 250 MG TAB PO SCH (05:14)
[2018-11-21] MEDS: PANTOPRAZOLE (EC) 40 MG TAB PO SCH (05:14)
[2018-11-21] MEDS: HEPARIN 5,000 UNIT/1 ML VIAL SC SCH ×3 (05:17→20:54)
--- NOTE | 2018-11-21 05:31 | NUR ---
VS stable and pt A&O x4. BG checked and administered insulin as ordered. No acute changes or s/s of respiratory distress during shift. Pt denies having pain. PICC line patent. Pt temp was 99.1 and cooling measures remain in place. Hourly rounding provided. Bed at lowest position with call light within reach. Will endorse continuity of care to oncoming nurse.
[2018-11-21 07:35] VITALS: BP 124/67; PULSE 72; RESP 18
[2018-11-21] MEDS: VANCOMYCIN 1 GM 250 ML IVPB SCH ×2 (08:36→20:50)
[2018-11-21] MEDS: LISINOPRIL 5 MG TAB PO SCH (08:37)
[2018-11-21] MEDS: GABAPENTIN 100 MG CAP PO SCH ×3 (08:37→20:50)
[2018-11-21] MEDS: ASPIRIN 81 MG TAB PO SCH (08:37)
[2018-11-21] MEDS: TAMSULOSIN (SR) 0.4 MG CAP PO SCH (08:37)
[2018-11-21] MEDS: INSULIN ASPART [NOVOLOG] 3 ML PEN SC SCH ×7 (09:26→20:53)
[2018-11-21] MEDS: ACETAMINOPHEN 325 MG TAB PO PRN (12:00)
--- NOTE | 2018-11-21 15:40 | PN ---
Date/Time of Note Date/Time of Note DATE: 11/21/18 TIME: 15:36 Assessment/Plan VTE Prophylaxis Risk score (from Nsg)>0 risk: 3 SCD applied (from Nsg): Yes Pharmacological prophylaxis: other Lines/Catheters IV Catheter Type (from Nrsg): PICC Line Central line still needed: Yes Assessment/Plan Hospital Course S: Patient had no acute events overnight. O: VS -see below PE: Gen: Well appearing man in no acute distress. Eyes: PERRL, no icterus HEENT: Moist mucous membranes, clear oropharynx Neck: No lymphadenopathy, no JVD Card: Regular rate and rhythm, no murmurs Pulm: Clear to auscultation bilaterally Back: No CVA tenderness. No midline spine tenderness. Abd: Soft, nondistended, mild TTP RLQ. Ext: L foot transmetatarsal amputation, clean appearing. R foot with large medial bunion and well-healed dry ulcer underneath it 2D echo November 16, 2018: Conclusions Normal left ventricular systolic function. Normal left ventricular cavity size. Normal left ventricular wall thickness. Ejection fraction is visually estimated at 55 %. Normal right ventricular size. Normal right ventricular systolic function. The left atrium is normal in size. The right atrium is normal in size. No significant valvular stenosis or regurgitation seen. Normal pericardium with no significant pericardial effusion. MRI foot ankle November 18, 2018: IMPRESSION: 1. Findings compatible with neuropathic joint in the medial midfoot. 2. Subcutaneous edema and focal plantar skin irregularity in the medial midfoot with 3.3 cm fluid collection in the medial midfoot possibly containing punctate foci of gas with surrounding marrow infiltrative signal within the first metatarsal shaft, medial cuneiform, portions of the intermediate cuneiform and second metatarsal shaft compatible with osteomyelitis. Edema at the base of the third metatarsal and lateral cuneiform more likely neuropathic joint changes, although osteomyelitis cannot be completely excluded. Focal edema in the medial distal aspect of the navicular bone may be reactive but focal osteomyelitis cannot be excluded. 3. Status post amputation of the fifth ray to the level of the mid metatarsal shaft. 4. Diffuse soft tissue edema in the visualized foot. 5. Foreign body in the plantar soft tissues of the forefoot in the region of the first metatarsal shaft. Assessment/Plan: 58M with history of IDDM, stage 2 CKD, peripheral vascular disease status post foot amputations for osteomyelitis as well as severe diabetic retinopathy; presents with sepsis, ALMAS, hypotension, PO intolerance, flank pain. #Sepsis-likely secondary to cellulitis and positive bacteremia- reported PO intolerance on admission but now tolerating diet fine- Blood cultures growing coagulase-negative staph and gram-positive lizy. MRI of the foot noted as well, signs of osteomyelitis. -For now continue current antibiotics -Follow-up recommendations from podiatry and infectious disease teams - patient again had PICC placement likely will need 6 weeks of antibiotics -Per discussion with skin care consultant teams, patient also scheduled for likely surgery/debridement in 72 hours. #Flank pain- Renal ultrasound shows nonobstructing stone, no e/o pyelo- Now resolving. -Monitor #PO intolerance- Resolved -Monitor #ALMAS- Likely due to dehydration- Now resolved. -Monitor, patient is pending outpatient nephrology appointment. #Chest pain- History not typical of cardiac chest pain- Trops negative, EKG with poor R wave progression otherwise no ST-T change concerning for ischemia. -Continue Protonix for suspected GERD. #IDDM-patient had hyperglycemic on admission, blood sugars stable. A1c equals 8.2 - Cont home insulin due to poor PO intake. DVT: SCDs GI: Protonix Exam/Review of Systems Vital Signs Vitals Vital Signs Date Temp Pulse Resp B/P (MAP) Pulse Ox O2 O2 Flow FiO2 Time Delivery Rate 11/21/18 99.0 72 18 124/67 99 Room Air 07:35 (86) Intake and Output 11/20/18 11/20/18 11/21/18 1515:00 23:00 07:00 IntakeIntake Total 1290 ml 915 ml 925 ml OutputOutput Total 2600 ml 525 ml 900 ml BalanceBalance -1310 ml 390 ml 25 ml JESSICA LARSON Nov 21, 2018 15:40
--- NOTE | 2018-11-21 15:42 | NUR ---
PT NOTE , ATTEMPTED TO SEE THE PATIENT FOR PT TREATMENT , PATIENT UNWILLING TO PARTICIPATE IN PT SESSION , STATED HAS BEEN SCHEDULED FOR RT FOOT SURGERY ON 11/24/18, ALSO STATED ABLE TO AMBULATE WITH [facility] TO BR IND . VERIFIED ABOVE INFORMATION WITH RN , PLAN TO DC SKILLED PT SERVICES AT THIS TIME PLAN TO FOLLOW UP ONCE RECEIVED NEW POS-OP MD ORDER .( PATIENT AND RN NOTIFIED .
[2018-11-21 16:16] VITALS: BP 121/62; PULSE 75; RESP 18
--- NOTE | 2018-11-21 16:30 | CONS ---
Date/Time of Note Date/Time of Note DATE: 11/21/18 TIME: 16:30 Assessment/Plan Assessment/Plan Chief Complaint/Hosp Course No acute changes, alert, feels good Microbiology: Blood cultures growing gram-positive cocci in clusters 1 out of 2 sets Antimicrobials: Vancomycin and Levaquin Physical examination: Well-nourished well-developed middle-aged man who is awake in no distress. Head atraumatic normocephalic sclera nonicteric. Neck is supple chest rise symmetrical breath sounds clear. Heart: S1-S2. Abdomen soft bowel sounds present. Extremities with right foot deformed and with area of erythema on the medial part. Assessment: 1. Systemic inflammatory response syndrome with fevers and leukocytosis 2. Right foot cellulitis/Charcot/OM 3. Gram-positive cocci bacteremia possibly secondary to #2 4. Diabetes Plan: Remains stable, pending debridement tentatively on Saturday, continue abx, f/u podiatry rec-s, will require IV abx for 6 weeks Consultation Date/Type/Reason Admit Date/Time Nov 15, 2018 at 11:09 Initial Consult Date Type of Consult ID Exam/Review of Systems Vital Signs Vitals Vital Signs Date Temp Pulse Resp B/P (MAP) Pulse Ox O2 O2 Flow FiO2 Time Delivery Rate 11/21/18 98.3 75 18 121/62 98 Room Air 16:16 (81) Intake and Output 11/20/18 11/20/18 11/21/18 1515:00 23:00 07:00 IntakeIntake Total 1290 ml 915 ml 925 ml OutputOutput Total 2600 ml 525 ml 900 ml BalanceBalance -1310 ml 390 ml 25 ml IRIS SANTIZO NP Nov 21, 2018 16:30
--- NOTE | 2018-11-21 18:35 | NUR ---
END OF SHIFT NOTES: PT STABLE, ALERT & ORIENTED X4. NO DISTRESS NOTED. INSTRUCTED PT TO CALL FOR ASSISTANCE. VS WNL.HOURLY ROUNDING. PENDING SURGERY ON SATURDAY. CALL LIGHT WITHIN REACH.ALL NEEDS MET. NO NEW COMPLAINTS.
[2018-11-21 20:00] VITALS: BP 132/64; PULSE 97; RESP 18
[2018-11-21] MEDS: ATORVASTATIN 20 MG TAB PO SCH (20:50)
[2018-11-21] MEDS: INSULIN GLARGINE [LANTus] (100 UNITS/ML) SYG SC SCH (20:54)
[2018-11-21 21:43] VITALS: BP 134/78; PULSE 95; RESP 20
[2018-11-22 02:00] VITALS: BP 104/58; PULSE 94; RESP 18
[2018-11-22] MEDS: ACCU-CHEK XX SCH (02:00)
--- NOTE | 2018-11-22 05:10 | NUR ---
EOSS: Patient slept good. Denies any pain this shift. All due meds administered. Right leg elevated. No other complaints at this time. Will endorse to morning nurse for continuity of care.
[2018-11-22] MEDS: LEVOFLOXACIN 250 MG TAB PO SCH (05:24)
[2018-11-22] MEDS: PANTOPRAZOLE (EC) 40 MG TAB PO SCH (05:24)
[2018-11-22] MEDS: ACETAMINOPHEN 325 MG TAB PO PRN ×3 (05:28→21:07)
[2018-11-22] MEDS: HEPARIN 5,000 UNIT/1 ML VIAL SC SCH ×3 (05:31→21:25)
[2018-11-22 08:02] VITALS: BP 105/60; PULSE 75; RESP 18
[2018-11-22] MEDS: TAMSULOSIN (SR) 0.4 MG CAP PO SCH (08:21)
[2018-11-22] MEDS: GABAPENTIN 100 MG CAP PO SCH ×3 (08:21→21:06)
[2018-11-22] MEDS: LISINOPRIL 5 MG TAB PO SCH (08:21)
[2018-11-22] MEDS: ASPIRIN 81 MG TAB PO SCH (08:21)
[2018-11-22] MEDS: VANCOMYCIN 1 GM 250 ML IVPB SCH ×2 (08:21→21:06)
[2018-11-22] MEDS: SENNA TAB PO PRN (08:26)
[2018-11-22] MEDS: INSULIN ASPART [NOVOLOG] 3 ML PEN SC SCH ×7 (08:30→21:00)
--- NOTE | 2018-11-22 12:09 | PN ---
Date/Time of Note Date/Time of Note DATE: 11/22/18 TIME: 12:08 Assessment/Plan VTE Prophylaxis Risk score (from Nsg)>0 risk: 2 SCD applied (from Nsg): Yes Pharmacological prophylaxis: other Lines/Catheters IV Catheter Type (from Nrsg): PICC Line Central line still needed: Yes Assessment/Plan Hospital Course S: Patient had no acute events overnight, no fevers. O: VS -see below PE: Gen: Well appearing man in no acute distress. Eyes: PERRL, no icterus HEENT: Moist mucous membranes, clear oropharynx Neck: No lymphadenopathy, no JVD Card: Regular rate and rhythm, no murmurs Pulm: Clear to auscultation bilaterally Back: No CVA tenderness. No midline spine tenderness. Abd: Soft, nondistended, mild TTP RLQ. Ext: L foot transmetatarsal amputation, clean appearing. R foot with large medial bunion and well-healed dry ulcer underneath it 2D echo November 16, 2018: Conclusions Normal left ventricular systolic function. Normal left ventricular cavity size. Normal left ventricular wall thickness. Ejection fraction is visually estimated at 55 %. Normal right ventricular size. Normal right ventricular systolic function. The left atrium is normal in size. The right atrium is normal in size. No significant valvular stenosis or regurgitation seen. Normal pericardium with no significant pericardial effusion. MRI foot ankle November 18, 2018: IMPRESSION: 1. Findings compatible with neuropathic joint in the medial midfoot. 2. Subcutaneous edema and focal plantar skin irregularity in the medial midfoot with 3.3 cm fluid collection in the medial midfoot possibly containing punctate foci of gas with surrounding marrow infiltrative signal within the first metatarsal shaft, medial cuneiform, portions of the intermediate cuneiform and second metatarsal shaft compatible with osteomyelitis. Edema at the base of the third metatarsal and lateral cuneiform more likely neuropathic joint changes, although osteomyelitis cannot be completely excluded. Focal edema in the medial distal aspect of the navicular bone may be reactive but focal osteomyelitis cannot be excluded. 3. Status post amputation of the fifth ray to the level of the mid metatarsal shaft. 4. Diffuse soft tissue edema in the visualized foot. 5. Foreign body in the plantar soft tissues of the forefoot in the region of the first metatarsal shaft. Assessment/Plan: 58M with history of IDDM, stage 2 CKD, peripheral vascular disease status post foot amputations for osteomyelitis as well as severe diabetic retinopathy; presents with sepsis, ALMAS, hypotension, PO intolerance, flank pain. #Sepsis-likely secondary to cellulitis and positive bacteremia- reported PO intolerance on admission but now tolerating diet fine- Blood cultures growing coagulase-negative staph and Corynebacterium species. MRI of the foot noted as well, signs of osteomyelitis. -For now continue current antibiotics Zosyn and vancomycin -Follow-up recommendations from podiatry and infectious disease teams - patient again had PICC placement likely will need 6 weeks of antibiotics total -Per discussion with [employer] consultant teams, patient also scheduled for likely surgery/debridement in 48 hours. #Flank pain- Renal ultrasound shows nonobstructing stone, no e/o pyelo- Now resolving. -Monitor #PO intolerance- Resolved -Monitor #ALMAS- Likely due to dehydration- Now resolved. -Monitor, patient is pending outpatient nephrology appointment. #Chest pain- History not typical of cardiac chest pain- Trops negative, EKG with poor R wave progression otherwise no ST-T change concerning for ischemia. -Continue Protonix for suspected GERD. #IDDM-patient had hyperglycemic on admission, blood sugars stable. A1c equals 8.2 - Cont home insulin due to poor PO intake. DVT: SCDs GI: Protonix Exam/Review of Systems Vital Signs Vitals Vital Signs Date Temp Pulse Resp B/P (MAP) Pulse Ox O2 O2 Flow FiO2 Time Delivery Rate 11/22/18 98.5 75 18 105/60 98 Room Air 08:02 (75) Intake and Output 11/21/18 11/21/18 11/22/18 1515:00 23:00 07:00 IntakeIntake Total 610 ml 1250 ml 690 ml OutputOutput Total 950 ml 1500 ml BalanceBalance -340 ml 1250 ml -810 ml JESSICA LARSON Nov 22, 2018 12:09
[2018-11-22] MEDS ORDERED: SOD CHLORIDE 0.9% 250 ML IV* ONE (12:12)
[2018-11-22] MEDS ORDERED: ALTEPLASE (CATHFLO) 2 MG INJ CATHETER PRN (12:30)
[2018-11-22] MEDS: SOD CHLORIDE 0.9% 1,000 ML IV SCH ×2 (12:38→16:04)
[2018-11-22 13:10] VITALS: BP 146/70; PULSE 77; RESP 18
--- NOTE | 2018-11-22 15:24 | CONS ---
Date/Time of Note Date/Time of Note DATE: 11/22/18 TIME: 15:21 Consultation Date/Type/Reason Admit Date/Time Nov 15, 2018 at 11:09 Initial Consult Date SUBJECTIVE: Pt is awake, alert, resting in bed. No fevers. VS: stable T: 97.9 LABS: Reviewed. WBC-5.5 Microbiology: Blood cultures growing gram-positive cocci in clusters 1 out of 2 sets Antimicrobials: Vancomycin and Levaquin Physical examination: GEN: Well-nourished well-developed middle-aged man who is awake in no distress. Head atraumatic normocephalic sclera nonicteric. Neck is supple Chest rise symmetrical breath sounds clear. Heart: S1-S2. Abdomen soft bowel sounds present. Extremities with right foot deformed and with area of erythema on the medial part. Assessment: 1. Systemic inflammatory response syndrome with fevers and leukocytosis 2. Right foot cellulitis/Charcot/OM 3. Gram-positive cocci bacteremia possibly secondary to #2 4. Diabetes Plan: Remains stable. Possible debridement on Saturday. Will continue current abx, Podiatry rec-s. Will require IV abx for 6 weeks Exam/Review of Systems Vital Signs Vitals Vital Signs Date Temp Pulse Resp B/P (MAP) Pulse Ox O2 O2 Flow FiO2 Time Delivery Rate 11/22/18 97.9 77 18 146/70 100 13:10 (95) 11/22/18 Room Air 08:02 Intake and Output 11/21/18 11/21/18 11/22/18 1515:00 23:00 07:00 IntakeIntake Total 610 ml 1250 ml 690 ml OutputOutput Total 950 ml 1500 ml BalanceBalance -340 ml 1250 ml -810 ml DALTON ROSE Nov 22, 2018 15:24
--- NOTE | 2018-11-22 18:17 | NUR ---
Shift Summary Report Patient alert and oriented x4,able to make needs known. Stable during this shift. Due to give 1 unit of PRBC, pending from blood bank. Will endorse to next shift. Complained of mild pain on R foot, medication given as ordered. Still on IV fluids. Call light within reach, bed alarms on, will continue to monitor.
[2018-11-22] MEDS: ATORVASTATIN 20 MG TAB PO SCH (21:06)
[2018-11-22] MEDS: INSULIN GLARGINE [LANTus] (100 UNITS/ML) SYG SC SCH (21:21)
[2018-11-23] MEDS: SOD CHLORIDE 0.9% 1,000 ML IV SCH ×3 (01:58→21:36)
[2018-11-23] MEDS: ACCU-CHEK XX SCH (02:00)
[2018-11-23 02:19] VITALS: BP 135/76; PULSE 68; RESP 18
[2018-11-23] MEDS: LEVOFLOXACIN 250 MG TAB PO SCH (05:29)
[2018-11-23] MEDS: PANTOPRAZOLE (EC) 40 MG TAB PO SCH (05:30)
[2018-11-23] MEDS: HEPARIN 5,000 UNIT/1 ML VIAL SC SCH ×3 (05:40→21:42)
--- NOTE | 2018-11-23 06:34 | NUR ---
ESS:- Alert & oriented x 4. On RA. Given 1 unit of PRBC at night. No reactions or complications noticed. Family visited and updated status.Pt slept well. Ambulated to bathroom independently.
[2018-11-23] MEDS: INSULIN ASPART [NOVOLOG] 3 ML PEN SC SCH ×8 (08:00→21:00)
[2018-11-23 08:10] VITALS: BP 164/83; PULSE 78; RESP 16
[2018-11-23] MEDS: TAMSULOSIN (SR) 0.4 MG CAP PO SCH (08:17)
[2018-11-23] MEDS: LISINOPRIL 5 MG TAB PO SCH (08:17)
[2018-11-23] MEDS: GABAPENTIN 100 MG CAP PO SCH ×3 (08:17→21:24)
[2018-11-23] MEDS: ASPIRIN 81 MG TAB PO SCH (08:18)
[2018-11-23] MEDS: VANCOMYCIN 1 GM 250 ML IVPB SCH (09:45)
--- NOTE | 2018-11-23 12:58 | CONS ---
Date/Time of Note Date/Time of Note DATE: 11/23/18 TIME: 12:57 Assessment/Plan Assessment/Plan Chief Complaint/Hosp Course No acute changes, alert, feels good, no fevers, no pain Microbiology: Blood cultures growing gram-positive cocci in clusters 1 out of 2 sets Antimicrobials: Vancomycin and Levaquin Physical examination: Well-nourished well-developed middle-aged man who is awake in no distress. Head atraumatic normocephalic sclera nonicteric. Neck is supple chest rise symmetrical breath sounds clear. Heart: S1-S2. Abdomen soft bowel sounds present. Extremities with right foot deformed and with area of erythema on the medial part. Assessment: 1. Systemic inflammatory response syndrome with fevers and leukocytosis 2. Right foot cellulitis/Charcot/OM 3. Gram-positive cocci bacteremia possibly secondary to #2 4. Diabetes Plan: Remains stable, continue antibiotics, plan for debridement tomorrow. Anticipate discharge on IV antibiotics for 6 weeks, patient already has PICC line Consultation Date/Type/Reason Admit Date/Time Nov 15, 2018 at 11:09 Initial Consult Date Type of Consult ID Exam/Review of Systems Vital Signs Vitals Vital Signs Date Temp Pulse Resp B/P (MAP) Pulse Ox O2 O2 Flow FiO2 Time Delivery Rate 11/23/18 98.0 78 16 164/83 99 08:10 (110) 11/22/18 Room Air 08:02 Intake and Output 11/22/18 11/22/18 11/23/18 1515:00 23:00 07:00 IntakeIntake Total 1450 ml 1030 ml 1400 ml OutputOutput Total 500 ml 600 ml 800 ml BalanceBalance 950 ml 430 ml 600 ml IRIS SANTIZO NP Nov 23, 2018 12:58
--- NOTE | 2018-11-23 13:01 | NUR ---
Vancomycin per Rx Vancomycin trough = 17.8 (drawn at 08:16) Dose = 1 g q12h CC: Osteomyelitis Other antibiotics: Levaquin PO WBC 6.8 BUN/Scr 17/1.02 A/P: Decrease to Vancomycin 750 mg IVPB q12h. Pharmacy to follow.
--- NOTE | 2018-11-23 13:45 | PN ---
Date/Time of Note Date/Time of Note DATE: 11/23/18 TIME: 13:44 Assessment/Plan VTE Prophylaxis Risk score (from Nsg)>0 risk: 3 SCD applied (from Nsg): Yes Pharmacological prophylaxis: other Lines/Catheters IV Catheter Type (from Nrsg): PICC Line Central line still needed: Yes Assessment/Plan Hospital Course S: No acute events overnight, seen by ID team earlier. No fevers. O: VS -see below PE: Gen: Well appearing man in no acute distress. Eyes: PERRL, no icterus HEENT: Moist mucous membranes, clear oropharynx Neck: No lymphadenopathy, no JVD Card: Regular rate and rhythm, no murmurs Pulm: Clear to auscultation bilaterally Back: No CVA tenderness. No midline spine tenderness. Abd: Soft, nondistended, mild TTP RLQ. Ext: L foot transmetatarsal amputation, clean appearing. R foot with large medial bunion and well-healed dry ulcer underneath it 2D echo November 16, 2018: Conclusions Normal left ventricular systolic function. Normal left ventricular cavity size. Normal left ventricular wall thickness. Ejection fraction is visually estimated at 55 %. Normal right ventricular size. Normal right ventricular systolic function. The left atrium is normal in size. The right atrium is normal in size. No significant valvular stenosis or regurgitation seen. Normal pericardium with no significant pericardial effusion. MRI foot ankle November 18, 2018: IMPRESSION: 1. Findings compatible with neuropathic joint in the medial midfoot. 2. Subcutaneous edema and focal plantar skin irregularity in the medial midfoot with 3.3 cm fluid collection in the medial midfoot possibly containing punctate foci of gas with surrounding marrow infiltrative signal within the first metatarsal shaft, medial cuneiform, portions of the intermediate cuneiform and second metatarsal shaft compatible with osteomyelitis. Edema at the base of the third metatarsal and lateral cuneiform more likely neuropathic joint changes, although osteomyelitis cannot be completely excluded. Focal edema in the medial distal aspect of the navicular bone may be reactive but focal osteomyelitis cannot be excluded. 3. Status post amputation of the fifth ray to the level of the mid metatarsal shaft. 4. Diffuse soft tissue edema in the visualized foot. 5. Foreign body in the plantar soft tissues of the forefoot in the region of the first metatarsal shaft. Assessment/Plan: 58M with history of IDDM, stage 2 CKD, peripheral vascular dis ease status post foot amputations for osteomyelitis as well as severe diabetic retinopathy; presents with sepsis, ALMAS, hypotension, PO intolerance, flank pain. #Sepsis-likely secondary to cellulitis and positive bacteremia- reported PO intolerance on admission but now tolerating diet fine- Blood cultures growing coagulase-negative staph and Corynebacterium species. MRI of the foot noted as well, signs of osteomyelitis. -For now continue current antibiotics Zosyn and vancomycin -Follow-up recommendations from podiatry and infectious disease teams - patient again had PICC placement - likely will need 6 weeks of antibiotics total -Per discussion with research consultant teams, patient also scheduled for likely surgery/debridement in 24 hours. #Flank pain- Renal ultrasound shows nonobstructing stone, no e/o pyelo- Now resolving. -Monitor #PO intolerance- Resolved -Monitor #ALMAS- Likely due to dehydration- Now resolved. -Monitor, patient is pending outpatient nephrology appointment. #Chest pain- History not typical of cardiac chest pain- Trops negative, EKG with poor R wave progression otherwise no ST-T change concerning for ischemia. -Continue Protonix for suspected GERD. #IDDM-patient had hyperglycemic on admission, blood sugars stable. A1c equals 8.2 - Cont home insulin DVT: SCDs GI: Protonix Exam/Review of Systems Vital Signs Vitals Vital Signs Date Temp Pulse Resp B/P (MAP) Pulse Ox O2 O2 Flow FiO2 Time Delivery Rate 11/23/18 98.0 78 16 164/83 99 08:10 (110) 11/22/18 Room Air 08:02 Intake and Output 11/22/18 11/22/18 11/23/18 1515:00 23:00 07:00 IntakeIntake Total 1450 ml 1030 ml 1400 ml OutputOutput Total 500 ml 600 ml 800 ml BalanceBalance 950 ml 430 ml 600 ml JESSICA LARSON Nov 23, 2018 13:45
--- NOTE | 2018-11-23 18:52 | NUR ---
Shift Summary Patient stable during this shift. Able to make needs known. All scheduled meds given. No complaints of pain or any discomfort. Will continue to monitor. Advised to call for assistance, bed alarms on at all times.
[2018-11-23 19:41] VITALS: BP 135/70; PULSE 88; RESP 18
[2018-11-23] MEDS: VANCOMYCIN 750 MG in SOD CHLORIDE 0.9% 150 ML IVPB SCH (21:22)
[2018-11-23] MEDS: ATORVASTATIN 20 MG TAB PO SCH (21:24)
[2018-11-23] MEDS: INSULIN GLARGINE [LANTus] (100 UNITS/ML) SYG SC SCH (21:27)
[2018-11-24] VITALS (17 sets, daily range): BP systolic 98–127; BP diastolic 53–70; PULSE 68–91; RESP 12–18
[2018-11-24] MEDS ORDERED: INSULIN ASPART [NOVOLOG] 3 ML PEN SC SCH (01:00)
[2018-11-24] MEDS: Insulin NOVOLOG SS MODERATE Algorithm(NPO/TPN/ENTERAL FEEDS) SC SCH ×4 (01:17→12:38)
[2018-11-24] MEDS: ACCU-CHEK XX SCH (02:00)
[2018-11-24] MEDS ORDERED: DEXTROSE 5%-0.45% NACL 1,000 ML IV SCH (04:30)
[2018-11-24] MEDS: PANTOPRAZOLE (EC) 40 MG TAB PO SCH (05:17)
[2018-11-24] MEDS: LEVOFLOXACIN 250 MG TAB PO SCH (05:17)
[2018-11-24] MEDS: HEPARIN 5,000 UNIT/1 ML VIAL SC SCH ×3 (05:18→21:03)
--- NOTE | 2018-11-24 06:07 | NUR ---
EOSS: No acute changes. Pt denied having pain. Blood glucose monitored q4h since pt. is NPO for procedure this AM. Held heparin overnight. All PO meds not given after 0000. Consent form is not signed, pt. verbalized that he wanted more information from the surgeon. Pt. free from injury. Will endorse care to oncoming nurse
[2018-11-24] MEDS ORDERED: BUPIVACAINE 0.5% (SDV) 30 ML INJ ONE (06:55)
[2018-11-24] MEDS ORDERED: POLYMYXIN/BACITRACIN 1L IRRIG ONE (06:55)
[2018-11-24] MEDS ORDERED: DEXAMETHASONE 4 MG/ML 1 ML INJ ONE (06:55)
[2018-11-24] MEDS ORDERED: DESFLURANE 15 MIN ONE (07:00)
[2018-11-24] MEDS ORDERED: GLYCOPYRROLATE 0.4 MG INJ ONE (07:00)
[2018-11-24] MEDS ORDERED: HYDROmorphONE 1 MG/5 ML IV SYRINGE IV PRN ×3 (07:30)
[2018-11-24] MEDS ORDERED: TRIMETHOBENZAMIDE 100 MG/ML VIAL IM PRN (07:30)
[2018-11-24] MEDS ORDERED: MIDAZOLAM 1 MG/ML 2 ML INJ IV PRN (07:30)
[2018-11-24] MEDS ORDERED: MEPERIDINE 25 MG INJ IV PRN (07:30)
[2018-11-24] MEDS ORDERED: LABETALOL HCL 20MG INJ IV PRN (07:30)
[2018-11-24] MEDS ORDERED: IPRATROPIUM (NEB) 0.5 MG/2.5 ML AMP HHN PRN (07:30)
[2018-11-24] MEDS ORDERED: OXYCODONE/ACETAMINOPHEN (5/325) TAB PO PRN ×2 (07:30)
[2018-11-24] MEDS ORDERED: DIPHENHYDRAMINE 50 MG INJ IV PRN (07:30)
[2018-11-24] MEDS ORDERED: ONDANSETRON 4 MG INJ IV PRN (07:30)
[2018-11-24] MEDS ORDERED: FENTAnyl 50 MCG/ML VIAL IV PRN ×3 (07:30)
[2018-11-24] MEDS ORDERED: ALBUTEROL 0.083% (NEB) 2.5 MG/3 ML AMP HHN PRN (07:30)
[2018-11-24] MEDS ORDERED: hydrALAzine 20 MG INJ IV PRN (07:30)
[2018-11-24] MEDS ORDERED: EPHEDrine SULFATE 50 MG/5 ML SYG IV PRN (07:30)
--- NOTE | 2018-11-24 07:33 | PREAC ---
Date/Time of Note Date/Time of Note DATE: 11/24/18 TIME: 07:31 Anesthesia Eval and Record Evaluation Time Pre-Procedure Interview DATE: 11/24/18 TIME: 07:31 Age 58 Sex male NPO: 8 hrs Preoperative diagnosis right diabetic foot Planned procedure right foot bone resection, bone biopsy, application of antibiotiv spacer Past Medical History Past Medical History: Includes Cardio: HTN Endo: Diabetes Renal: ALMAS GI: Obesity Surgery & Anesthesia Issues No known issue Meds Anticoagulation: No Beta Cyndi within 24 hr: No Reason Beta Cyndi not given: Pt. not on B-Cyndi Reported Medications Tamsulosin Hcl* (Tamsulosin Hcl*) 0.4 Mg Cap.er.24h, 0.4 MG PO DAILY, CAP 11/14/18 Atorvastatin Calcium* (Atorvastatin Calcium*) 20 Mg Tablet, 20 MG PO QHS, #30 TAB 11/14/18 Insulin Glargine,Hum.rec.anlog (Basaglar Kwikpen U-100) 100 Unit/1 Ml Insuln.pen, 45 UNIT SC QHS, EA 11/14/18 Metoclopramide Hcl* (Metoclopramide Hcl*) 5 Mg Tablet, 5 MG PO BID PRN for NAUSEA AND OR VOMITING, TAB 11/14/18 [Admelog] No Conflict Check, 15 UNITS SUBCUTANE* AC MEALS 08/06/18 Aspirin* (Aspirin* Chew) 81 Mg Tab.chew, 81 MG PO DAILY, TAB.CHEW 04/16/18 Lisinopril* (Lisinopril*) 5 Mg Tablet, 5 MG PO DAILY, #30 TAB 04/16/18 Gabapentin* (Gabapentin*) 100 Mg Capsule, 100 MG PO TID, #90 CAP 04/16/18 Current Medications Aspirin (Aspirin) 81 mg DAILY PO Last administered on 11/23/18at 08:18; Admin Dose 81 MG; Start 11/15/18 at 09:00 Atorvastatin Calcium (Lipitor) 20 mg QHS PO Last administered on 11/23/18at 21 :24; Admin Dose 20 MG; Start 11/14/18 at 21:00 Gabapentin (Neurontin) 100 mg TID PO Last administered on 11/23/18at 21:24; Admin Dose 100 MG; Start 11/14/18 at 21:00 Lisinopril (Zestril) 5 mg DAILY PO Last administered on 11/23/18 08:17; Admin Dose 5 MG; Start 11/15/18 at 09:00 Tamsulosin HCl (Flomax) 0.4 mg DAILY PO Last administered on 11/23/18 08:17; Admin Dose 0.4 MG; Start 11/15/18 at 09:00 IV Flush (NS 3 ml) 3 ml PER PROTOCOL IV ; Start 11/14/18 at 18:00 Metoclopramide HCl (Reglan) 10 mg Q6H PRN IV NAUSEA AND/OR VOMITING Last administered on 11/16/18 08:27; Admin Dose 10 MG; Start 11/14/18 at 18:00 Acetaminophen (Tylenol Tab) 650 mg Q6H PRN PO PAIN LEVEL 1-3 OR FEVER Last administered on 11/22/18 21:07; Admin Dose 650 MG; Start 11/14/18 at 18:00 Pantoprazole (Protonix Tab) 40 mg DAILY@0600 PO Last administered on 11/23/18 05:30; Admin Dose 40 MG; Start 11/14/18 at 18:30 Senna (Senokot) 2 tab BID PRN PO CONSTIPATION Last administered on 11/22/18 08:26; Admin Dose 2 TAB; Start 11/14/18 at 18:30 Diagnostic Test (Pha) (Accu-Chek) 1 ea 02 XX ; Start 11/15/18 at 02:00 Insulin Glargine (Lantus) 21 units DAILY@2000 SC Last administered on 11/23/18 21:27; Admin Dose 21 UNITS; Start 11/14/18 at 20:00 Insulin Aspart (Novolog Insulin Pen) 7 unit WITH MEALS SC Last administered on 11/23/18 18:24; Admin Dose 7 UNIT; Start 11/15/18 at 08:00 Miscellaneous Information 1 ea NOTE XX ; Start 11/14/18 at 19:00 Glucose (Glutose) 15 gm Q15M PRN PO DECREASED GLUCOSE; Start 11/14/18 at 19:00 Glucose (Glutose) 22.5 gm Q15M PRN PO DECREASED GLUCOSE; Start 11/14/18 at 19:00 Dextrose (D50w Syringe) 25 ml Q15M PRN IV DECREASED GLUCOSE; Start 11/14/18 at 19:00 Dextrose (D50w Syringe) 50 ml Q15M PRN IV DECREASED GLUCOSE; Start 11/14/18 at 19:00 Glucagon (Glucagen) 1 mg Q15M PRN IM DECREASED GLUCOSE; Start 11/14/18 at 19:00 Glucose (Glutose) 15 gm Q15M PRN BUCCAL DECREASED GLUCOSE; Start 11/14/18 at 19:00 Levofloxacin (Levaquin) 250 mg DAILY@06 PO Last administered on 11/23/18at 05:29; Admin Dose 250 MG; Start 11/16/18 at 06:00 Vancomycin HCl (Vanco Iv Per Pharmacy) VANCOMYCIN PER PHARMACY PER PROTOCOL XX ; Start 11/16/18 at 07:00 Heparin Sodium (Porcine) (Heparin (5000 Units/1ml)) 5,000 unit Q8 SC Last administered on 11/23/18at 15:46; Admin Dose 5,000 UNIT; Start 11/16/18 at 14:00 IV Flush (NS 10 ml) 10 ml PRN PRN IV FLUSH LINE; Start 11/19/18 at 16:30 Alteplase, Recombinant (Cathflo (Activase)) 2 mg MAY REPEAT X1 PRN CATHETER IF CATHETER REMAINS OCCULUDED Last administered on 11/22/18at 12:52; Admin Dose 2 MG; Start 11/22/18 at 12:30 Vancomycin HCl 750 mg/Sodium Chloride 150 ml @ 75 mls/hr Q12 IVPB Last administered on 11/23/18at 21:22; Admin Dose 75 MLS/HR; Start 11/23/18 at 21:00 Insulin Aspart (Novolog Insulin Pen) (Adult SC Insulin - Moder... Q4 SC Last administered on 11/24/18at 04:47; Admin Dose 2 UNIT; Start 11/24/18 at 01:00 Dextrose/Sodium Chloride 1,000 ml @ 75 mls/hr [id number] IV Last administered on 11/24/18at 04:43; Admin Dose 75 MLS/HR; Start 11/24/18 at 04:30 Hydralazine HCl (Apresoline) 5 mg PACU ORDER PRN IV ELEVATED BLOOD PRESSURE; Start 11/24/18 at 07:30; Status UNV Ephedrine Sulfate 5 mg PACU ORDER PRN IV BLOOD PRESSURE SUPPORT; Start 11/24/18 at 07:30; Status UNV Albuterol (Proventil 0.083% (Neb)) 2.5 mg PACU ORDER PRN HHN WHEEZING; Start 11/24/18 at 07:30; Status UNV Ipratropium [place] (Atrovent 0.02% (Neb)) 0.5 mg PACU ORDER PRN HHN WHEEZING; Start 11/24/18 at 07:30; Status UNV Meperidine HCl (Demerol) 25 mg PACU ORDER PRN IV POST OPERATIVE SHIVERING; Start 11/24/18 at 07:30; Status UNV Diphenhydramine HCl (Benadryl) 25 mg PACU ORDER PRN IV PRURITUS; Start 11/24/18 at 07:30; Status UNV Midazolam HCl (Versed) 0.5 mg PACU ORDER PRN IV ANXIETY; Start 11/24/18 at 07:30; Status UNV Meds reviewed: Yes Allergies Coded Allergies: No Known Allergy (Unverified , 11/14/18) Allergies Reviewed: Yes Labs/Studies Labs Reviewed: Reviewed by anesthesiologist Result Diagram: 11/23/1860111/23/18601 test: N/A Studies: ECG (sinus tachycardia), CXR (No acute cardiopulmonary disease.) Pre-procedure Exam Last vitals Vital Signs Date Temp Pulse Resp B/P (MAP) Pulse Ox O2 O2 Flow FiO2 Time Delivery Rate 11/24/18 98.8 81 18 126/60 99 01:51 (82) 11/22/18 Room Air 08:02 Airway: Adequate mouth opening, Adequate thyromental dist Mallampati: Mallampati II Teeth: Normal Lung: Normal Heart: Normal ASA Physical Status ASA physical status: 3 Emergency: None Planned Anesthetic General/MAC: ETT Planned Pain Management Parenteral pain med, Local by surgeon Pre-operative Attestations Prior to commencing anesthesia and surgery, the patient was re-evaluated, there was verification of: *The patient's identity *The results of appropriate recent lab work and preoperative vital signs *The above evaluation not changing prior to induction *Anesthetic plan, risk benefits, alternative and complications discussed with patient/family; questions answered; patient/family understands, accepts and wishes to proceed. Fernando Wang M.D. Nov 24, 2018 07:33
[2018-11-24] MEDS ORDERED: PROPOFOL 20 ML ONE (07:34)
[2018-11-24] MEDS ORDERED: CEFAZOLIN 1 GM INJ ONE (07:34)
[2018-11-24] MEDS ORDERED: NEOSTIGMINE 3 MG/3 ML SYRINGE ONE (07:34)
[2018-11-24] MEDS ORDERED: ROCURONIUM 50 MG INJ ONE (07:34)
[2018-11-24] MEDS ORDERED: MIDAZOLAM 1 MG/ML 2 ML INJ ONE (07:35)
[2018-11-24] MEDS ORDERED: ONDANSETRON 4 MG INJ ONE (07:35)
[2018-11-24] MEDS ORDERED: FENTAnyl 50 MCG/ML VIAL ONE ×2 (07:35→08:42)
[2018-11-24] MEDS ORDERED: DEXAMETHASONE 4 MG/ML 5 ML INJ ONE (07:36)
[2018-11-24] MEDS ORDERED: VANCOMYCIN 1 GM INJ ONE (07:49)
[2018-11-24] MEDS: INSULIN ASPART [NOVOLOG] 3 ML PEN SC SCH ×5 (08:00→20:24)
[2018-11-24] MEDS ORDERED: POLYMYXIN B 500000 UNIT INJ ONE (08:17)
[2018-11-24] MEDS ORDERED: SODIUM CL BACTERIOSTATIC 30 ML INJ ONE (08:18)
[2018-11-24] MEDS ORDERED: BACITRACIN 50000 UNITS INJ ONE (08:19)
[2018-11-24] MEDS: GABAPENTIN 100 MG CAP PO SCH ×3 (09:00→20:20)
--- NOTE | 2018-11-24 09:07 | PAC ---
Date/Time of Note Date/Time of Note DATE: 11/24/18 TIME: 09:06 Post-Anesthesia Notes Post-Anesthesia Note Last documented vital signs Vital Signs Date Temp Pulse Resp B/P (MAP) Pulse Ox O2 O2 Flow FiO2 Time Delivery Rate 11/24/18 98.8 81 18 126/60 99 09:06 (82) 11/22/18 Room Air 08:02 Activity: WNL Respiratory function: WNL Cardiovascular function: WNL Mental status: Baseline Pain reasonably controlled: Yes Hydration appropriate: Yes Nausea/Vomiting absent: Yes Fernando Wang M.D. Nov 24, 2018 09:07
--- NOTE | 2018-11-24 09:11 | HPN ---
Date/Time of Note Date/Time of Note DATE: 11/24/18 TIME: 09:11 Interval H&P Admission Note Pt. seen H&P reviewed: No system changes ML ROSALES DPM Nov 24, 2018 09:11
--- NOTE | 2018-11-24 09:11 | SIPON ---
Date/Time of Note Date/Time of Note DATE: 11/24/18 TIME: 09:11 Operative Report Preoperative Diagnosis 1) Right foot charcot neuroarthropathy 2) Pre-ulcerative lesion to right foot 3) DM2 with peripheral neuropathy Postoperative Diagnosis 1) Right foot charcot neuroarthropathy 2) Pre-ulcerative lesion to right foot 3) DM2 with peripheral neuropathy Operation/Procedure Performed Right foot bone resection Right foot application of antibiotic spacer Surgeon see signature line assistant professor surgical technology none Anesthesia: general Estimated blood loss: 10 - 50 ml's Transfusion Required none Specimen right foot bone culture and pathology Grafts/Implants gentamicin antibiotic spacer Complications none ML ROSALES DPM Nov 24, 2018 09:11
--- NOTE | 2018-11-24 09:15 | OPR ---
Date/Time of Note Date/Time of Note DATE: 11/24/18 TIME: 09:15 Operative Report Preoperative Diagnosis 1) Right foot charcot neuroarthropathy 2) Pre-ulcerative lesion to right foot 3) DM2 with peripheral neuropathy 4) Corns and callus Postoperative Diagnosis 1) Right foot charcot neuroarthropathy 2) Pre-ulcerative lesion to right foot 3) DM2 with peripheral neuropathy 4) Corns and callus Operation/Procedure Performed Right foot bone resection Right foot application of antibiotic spacer callus paring Surgeon see signature line Manager Group None Anesthesia Type: general Estimated Blood Loss: 10 - 50 ml's Transfusion none Specimen right foot bone culture and pathology Grafts/Implants gentamicin antibiotic spacer with vancomycin powder Complications none Indications 58 y/o diabetic male patient who had noted sepsis with positive blood cultures. There was concern for possibility of source from the foot. MRI and x-rays ordered showed for concerning signs for charcot vs osteomyelitis. Discussed with patient that a staged surgical approach will be necessary to treat any underlying infection then to plan for a midfoot stabilization procedure. Patient was amenable to surgical approach. All of the questions and concerns were addressed, no promises or guarantees were given. Procedure Description Patient was brought to the OR and placed on the OR table in the supine position. A well padded thigh tourinquet was applied to the right lower extremity. The right lower extremity was scrubbed, prepped, and draped in the usual aseptic manner. A formal timeout was conducted. The right lower extremity was exsanguinated and tourniquet was inflated. Then attention was directed to the right foot. Initially a callus paring was performed on the plantar aspect of the right foot which revealed no underlying lesion or open wound site. Attention was then directed to the medial aspect of the foot and layer dissection was carried out to the bone. It was appreciated that the medial cuneiform was extruded out of its joint site and displayed degenerative changes. The medial cuneiform was resected out and sent for bone culture and pathology specimen. Using a sagittal saw on power the non-viable cartilage as well as non-viable bone was resected from the navicular. Using rongeurs and osteotomes the middle cuneiform was resected out and debrided of non-viable tissue. Copious antibiotic infused saline pulse lavage irrigation was used at the surgical site. No foreign body was appreciated. Tourniquet was deflated at this time. Vancomycin powder was applied to the surgical site as well as a gentamicin antibiotic spacer. Using 3-0 prolene skin closure was done. A well padded posterior splint was applied to the right lower extremity. The patient was transferred to the PACU with vital signs stable and neurovascular status intact. ML ROSALES DPM Nov 24, 2018 09:15
--- NOTE | 2018-11-24 10:27 | NUR ---
PATIENT NOW RETURNING TO HIS ROOM FROM RECOVERY AWAKE AND ALERT, VITALS STABLE , RIGHT FOOT WITH LARGE DAVE WRAP DRESSING DRY AND INTACT. PATIENT VERBALIZES SENSATION AND CIRCULATION WITH PALPATION OF RIGHT TOES. DENIES PAIN OR NAUSEA. URINAL PLACED WITHIN REACH. LEFT UPPER ARM PICC LINE PATENT WITH IV INFUSING. BED IN LOW POSITION WITH ALARMS ACTIVATED. Addendum: 11/24/18 at 1828 by BEATRICE DAUGHERTY RN END OF SHIFT NOTE: PATIENT RESTING COMFORTABLE IN BED NO APPARENT DISTRESS CONTINUES TO DENIES PAIN SINCE SURGERY. RIGHT LEG ELEVATED AND HEEL OFFLOADED ON PILLOWS. DRESSING REMAINS DRY AND INTACT.GLUCOSE LEVEL MONITORED,URINAL WITHIN REACH. BED IN LOW POSITION WITH ALARM ACTIVATED.
[2018-11-24] MEDS: LISINOPRIL 5 MG TAB PO SCH (10:41)
[2018-11-24] MEDS: VANCOMYCIN 750 MG in SOD CHLORIDE 0.9% 150 ML IVPB SCH ×2 (10:41→20:51)
[2018-11-24] MEDS: ASPIRIN 81 MG TAB PO SCH (10:41)
[2018-11-24] MEDS: TAMSULOSIN (SR) 0.4 MG CAP PO SCH (10:41)
--- NOTE | 2018-11-24 12:49 | PN ---
Date/Time of Note Date/Time of Note DATE: 11/24/18 TIME: 12:42 Assessment/Plan VTE Prophylaxis Risk score (from Nsg)>0 risk: 3 SCD applied (from Nsg): No SCD contraindicated: low risk/ambulating Pharmacological prophylaxis: heparin Lines/Catheters IV Catheter Type (from Nrsg): PICC Line Central line still needed: Yes Assessment/Plan Assessment/Plan 58M with history of IDDM, stage 2 CKD, peripheral vascular disease status post foot amputations for osteomyelitis as well as severe diabetic retinopathy; presents with sepsis, ALMAS, hypotension, PO intolerance, flank pain. #Sepsis-likely secondary to cellulitis of R foot and positive bacteremia - reported PO intolerance on admission but now tolerating diet fine - Blood cultures growing coagulase-negative staph and Corynebacterium species. MRI of the foot noted as well, signs of osteomyelitis. - For now continue current antibiotics Zosyn and vancomycin - Follow-up recommendations from podiatry and infectious disease teams -patient again had PICC placement - likely will need 6 weeks of antibiotics total - s/p debridement on 11/24 #Flank pain- Renal ultrasound shows nonobstructing stone, no e/o pyelo- Now resolving. #ALMAS- Likely due to dehydration- Now resolved. - Patient is pending outpatient nephrology appointment. #Chest pain- History not typical of cardiac chest pain- Trops negative, EKG with poor R wave progression otherwise no ST-T change concerning for ischemia. -Continue Protonix for suspected GERD. #IDDM-patient had hyperglycemic on admission, blood sugars stable. A1c equals 8.2 - Cont home insulin DVT: SCDs GI: Protonix Result Diagram: 11/23/18 0602 11/23/18 0602 Results 24hrs Laboratory Tests Test 11/23/18 12:43 11/23/18 17:37 11/23/18 21:24 11/24/18 01:12 Bedside Glucose 189 132 155 173 Test 11/24/18 04:43 11/24/18 09:12 11/24/18 11:40 Bedside Glucose 170 233 H 243 H Subjective 24 Hr Interval Summary Free Text/Dictation Went this morning for surgery. R foot bone resection and placement of antimicrobial spacer. Afterwards feeling well, no complaints. Exam/Review of Systems Vital Signs Vitals Vital Signs Date Temp Pulse Resp B/P (MAP) Pulse Ox O2 O2 Flow FiO2 Time Delivery Rate 11/24/18 97.6 68 17 112/66 97 Room Air 10:23 (81) 11/24/18 2.0 09:21 Intake and Output 11/23/18 11/23/18 11/24/18 1414:59 22:59 06:59 IntakeIntake Total 1390 ml 1250 ml 755 ml OutputOutput Total 1500 ml 1050 ml 1950 ml BalanceBalance -110 ml 200 ml -1195 ml Exam Gen: Well appearing man in no acute distress. Eyes: PERRL, no icterus HEENT: Moist mucous membranes, clear oropharynx Neck: No lymphadenopathy, no JVD Card: Regular rate and rhythm, no murmurs Pulm: Clear to auscultation bilaterally Back: No CVA tenderness. No midline spine tenderness. Abd: Soft, nondistended, mild TTP RLQ. Ext: L foot transmetatarsal amputation, clean appearing. R foot bandaged. Medications Medications Current Medications Aspirin (Aspirin) 81 mg DAILY PO Last administered on 11/24/18at 10:41; Admin Dose 81 MG; Start 11/15/18 at 09:00 Atorvastatin Calcium (Lipitor) 20 mg QHS PO Last administered on 11/23/18at 21:24; Admin Dose 20 MG; Start 11/14/18 at 21:00 Gabapentin (Neurontin) 100 mg TID PO Last administered on 11/24/18at 12:39; Admin Dose 100 MG; Start 11/14/18 at 21:00 Lisinopril (Zestril) 5 mg DAILY PO Last administered on 11/24/18 10:41; Admin Dose 5 MG; Start 11/15/18 at 09:00 Tamsulosin HCl (Flomax) 0.4 mg DAILY PO Last administered on 11/24/18 10:41; Admin Dose 0.4 MG; Start 11/15/18 at 09:00 IV Flush (NS 3 ml) 3 ml PER PROTOCOL IV ; Start 11/14/18 at 18:00 Metoclopramide HCl (Reglan) 10 mg Q6H PRN IV NAUSEA AND/OR VOMITING Last administered on 11/16/18at 08:27; Admin Dose 10 MG; Start 11/14/18 at 18:00 Acetaminophen (Tylenol Tab) 650 mg Q6H PRN PO PAIN LEVEL 1-3 OR FEVER Last administered on 11/22/18at 21:07; Admin Dose 650 MG; Start 11/14/18 at 18:00 Pantoprazole (Protonix Tab) 40 mg DAILY@0600 PO Last administered on 11/23/18at 05:30; Admin Dose 40 MG; Start 11/14/18 at 18:30 Senna (Senokot) 2 tab BID PRN PO CONSTIPATION Last administered on 11/22/18at 08:26; Admin Dose 2 TAB; Start 11/14/18 at 18:30 Diagnostic Test (Pha) (Accu-Chek) 1 ea 02 XX ; Start 11/15/18 at 02:00 Insulin Glargine (Lantus) 21 units DAILY@2000 SC Last administered on 11/23/18at 21:27; Admin Dose 21 UNITS; Start 11/14/18 at 20:00 Insulin Aspart (Novolog Insulin Pen) 7 unit WITH MEALS SC Last administered on 11/24/18at 12:15; Admin Dose 7 UNIT; Start 11/15/18 at 08:00 Miscellaneous Information 1 ea NOTE XX ; Start 11/14/18 at 19:00 Glucose (Glutose) 15 gm Q15M PRN PO DECREASED GLUCOSE; Start 11/14/18 at 19:00 Glucose (Glutose) 22.5 gm Q15M PRN PO DECREASED GLUCOSE; Start 11/14/18 at 19:00 Dextrose (D50w Syringe) 25 ml Q15M PRN IV DECREASED GLUCOSE; Start 11/14/18 at 19:00 Dextrose (D50w Syringe) 50 ml Q15M PRN IV DECREASED GLUCOSE; Start 11/14/18 at 19:00 Glucagon (Glucagen) 1 mg Q15M PRN IM DECREASED GLUCOSE; Start 11/14/18 at 19:00 Glucose (Glutose) 15 gm Q15M PRN BUCCAL DECREASED GLUCOSE; Start 11/14/18 at 19:00 Levofloxacin (Levaquin) 250 mg DAILY@06 PO Last administered on 11/23/18at 05:29; Admin Dose 250 MG; Start 11/16/18 at 06:00 Vancomycin HCl (Vanco Iv Per Pharmacy) VANCOMYCIN PER PHARMACY PER PROTOCOL XX ; Start 11/16/18 at 07:00 Heparin Sodium (Porcine) (Heparin (5000 Units/1ml)) 5,000 unit Q8 SC Last administered on 11/23/18at 15:46; Admin Dose 5,000 UNIT; Start 11/16/18 at 14:00 IV Flush (NS 10 ml) 10 ml PRN PRN IV FLUSH LINE; Start 11/19/18 at 16:30 Alteplase, Recombinant (Cathflo (Activase)) 2 mg MAY REPEAT X1 PRN CATHETER IF CATHETER REMAINS OCCULUDED Last administered on 11/22/18at 12:52; Admin Dose 2 MG; Start 11/22/18 at 12:30 Vancomycin HCl 750 mg/Sodium Chloride 150 ml @ 75 mls/hr Q12 IVPB Last administered on 11/24/18at 10:41; Admin Dose 75 MLS/HR; Start 11/23/18 at 21:00 Insulin Aspart (Novolog Insulin Pen) (Adult SC Insulin - Moder... Q4 SC Last administered on 11/24/18at 12:13; Admin Dose 6 UNIT; Start 11/24/18 at 01:00 Dextrose/Sodium Chloride 1,000 ml @ 75 mls/hr [id number] IV Last administered on 11/24/18at 04:43; Admin Dose 75 MLS/HR; Start 11/24/18 at 04:30 CLOVIS JACKMAN MD Nov 24, 2018 12:49
--- NOTE | 2018-11-24 14:34 | CONS ---
Date/Time of Note Date/Time of Note DATE: 11/24/18 TIME: 14:33 Assessment/Plan Assessment/Plan Chief Complaint/Hosp Course Alert, feels good, no fevers Microbiology: Blood cultures growing gram-positive cocci in clusters 1 out of 2 sets Antimicrobials: Vancomycin and Levaquin Physical examination: Well-nourished well-developed middle-aged man who is awake in no distress. Head atraumatic normocephalic sclera nonicteric. Neck is supple chest rise symmetrical breath sounds clear. Heart: S1-S2. Abdomen soft bowel sounds present. Extremities with right foot deformed and with area of erythema on the medial part. Assessment: 1. Systemic inflammatory response syndrome with fevers and leukocytosis 2. Right foot cellulitis/Charcot/OM 3. Gram-positive cocci bacteremia possibly secondary to #2 4. Diabetes Plan: Remains stable, pending debridement. Anticipate discharge on IV antibiotics for 6 weeks, patient already has PICC line Consultation Date/Type/Reason Admit Date/Time Nov 15, 2018 at 11:09 Initial Consult Date Type of Consult ID Exam/Review of Systems Vital Signs Vitals Vital Signs Date Temp Pulse Resp B/P (MAP) Pulse Ox O2 O2 Flow FiO2 Time Delivery Rate 11/24/18 97.7 84 17 98/53 (68) 97 Room Air 14:00 11/24/18 2.0 09:21 Intake and Output 11/23/18 11/23/18 11/24/18 1515:00 23:00 07:00 IntakeIntake Total 1390 ml 1250 ml 755 ml OutputOutput Total 1500 ml 1050 ml 1950 ml BalanceBalance -110 ml 200 ml -1195 ml Medications Medications Current Medications Aspirin (Aspirin) 81 mg DAILY PO Last administered on 11/24/18at 10:41; Admin Dose 81 MG; Start 11/15/18 at 09:00 Atorvastatin Calcium (Lipitor) 20 mg QHS PO Last administered on 11/23/18at 21:24; Admin Dose 20 MG; Start 11/14/18 at 21:00 Gabapentin (Neurontin) 100 mg TID PO Last administered on 11/24/18at 12:39; Admin Dose 100 MG; Start 11/14/18 at 21:00 Lisinopril (Zestril) 5 mg DAILY PO Last administered on 11/24/18at 10:41; Admin Dose 5 MG; Start 11/15/18 at 09:00 Tamsulosin HCl (Flomax) 0.4 mg DAILY PO Last administered on 11/24/18 10:41; Admin Dose 0.4 MG; Start 11/15/18 at 09:00 IV Flush (NS 3 ml) 3 ml PER PROTOCOL IV ; Start 11/14/18 at 18:00 Metoclopramide HCl (Reglan) 10 mg Q6H PRN IV NAUSEA AND/OR VOMITING Last administered on 11/16/18 08:27; Admin Dose 10 MG; Start 11/14/18 at 18:00 Acetaminophen (Tylenol Tab) 650 mg Q6H PRN PO PAIN LEVEL 1-3 OR FEVER Last administered on 11/22/18 21:07; Admin Dose 650 MG; Start 11/14/18 at 18:00 Pantoprazole (Protonix Tab) 40 mg DAILY@0600 PO Last administered on 11/23/18 05:30; Admin Dose 40 MG; Start 11/14/18 at 18:30 Senna (Senokot) 2 tab BID PRN PO CONSTIPATION Last administered on 11/22/18 08:26; Admin Dose 2 TAB; Start 11/14/18 at 18:30 Diagnostic Test (Pha) (Accu-Chek) 1 ea 02 XX ; Start 11/15/18 at 02:00 Insulin Glargine (Lantus) 21 units DAILY@2000 SC Last administered on 01/24/18 21:27; Admin Dose 21 UNITS; Start 11/14/18 at 20:00 Insulin Aspart (Novolog Insulin Pen) 7 unit WITH MEALS SC Last administered on 11/24/18at 12:15; Admin Dose 7 UNIT; Start 11/15/18 at 08:00 Miscellaneous Information 1 ea NOTE XX ; Start 11/14/18 at 19:00 Glucose (Glutose) 15 gm Q15M PRN PO DECREASED GLUCOSE; Start 11/14/18 at 19:00 Glucose (Glutose) 22.5 gm Q15M PRN PO DECREASED GLUCOSE; Start 11/14/18 at 19:00 Dextrose (D50w Syringe) 25 ml Q15M PRN IV DECREASED GLUCOSE; Start 11/14/18 at 19:00 Dextrose (D50w Syringe) 50 ml Q15M PRN IV DECREASED GLUCOSE; Start 11/14/18 at 19:00 Glucagon (Glucagen) 1 mg Q15M PRN IM DECREASED GLUCOSE; Start 11/14/18 at 19:00 Glucose (Glutose) 15 gm Q15M PRN BUCCAL DECREASED GLUCOSE; Start 11/14/18 at 19:00 Vancomycin HCl (Vanco Iv Per Pharmacy) VANCOMYCIN PER PHARMACY PER PROTOCOL XX ; Start 11/16/18 at 07:00 Heparin Sodium (Porcine) (Heparin (5000 Units/1ml)) 5,000 unit Q8 SC Last administered on 11/23/18at 15:46; Admin Dose 5,000 UNIT; Start 11/16/18 at 14:00 IV Flush (NS 10 ml) 10 ml PRN PRN IV FLUSH LINE; Start 11/19/18 at 16:30 Alteplase, Recombinant (Cathflo (Activase)) 2 mg MAY REPEAT X1 PRN CATHETER IF CATHETER REMAINS OCCULUDED Last administered on 11/22/18at 12:52; Admin Dose 2 MG; Start 11/22/18 at 12:30 Vancomycin HCl 750 mg/Sodium Chloride 150 ml @ 75 mls/hr Q12 IVPB Last administered on 11/24/18at 10:41; Admin Dose 75 MLS/HR; Start 11/23/18 at 21:00 Insulin Aspart (Novolog Insulin Pen) NOVOLOG *MODERATE* ALGORITHM WITH MEALS B EDTIME SC ; Start 11/24/18 at 18:00 Levofloxacin (Levaquin) 500 mg DAILY@06 PO ; Start 11/25/18 at 06:00 Miscellaneous Information (*Rx Drug Level Order Reminder*) VANCO TROUGH @ 0,800 ON ... ONCE ONCE XX ; Start 11/25/18 at 08:00; Stop 11/25/18 at 08:01 IRIS SANTIZO NP Nov 24, 2018 14:34
[2018-11-24] MEDS: ATORVASTATIN 20 MG TAB PO SCH (20:20)
[2018-11-24] MEDS: INSULIN GLARGINE [LANTus] (100 UNITS/ML) SYG SC SCH (20:23)
[2018-11-24] MEDS: SENNA TAB PO PRN (20:24)
[2018-11-24] MEDS: ACETAMINOPHEN 325 MG TAB PO PRN (22:22)
[2018-11-25] MEDS: ACCU-CHEK XX SCH (02:00)
[2018-11-25 02:18] VITALS: BP 130/68; PULSE 79; RESP 18
[2018-11-25] MEDS: LEVOFLOXACIN 500 MG TAB PO SCH (05:11)
[2018-11-25] MEDS: HEPARIN 5,000 UNIT/1 ML VIAL SC SCH ×3 (05:18→21:31)
[2018-11-25] MEDS: PANTOPRAZOLE (EC) 40 MG TAB PO SCH (05:20)
--- NOTE | 2018-11-25 05:53 | NUR ---
END OF SHIFT REPORT Pt alert and oriented x4. Pt on bed in low position with call light within reach. Vitals stable. No acute distress noted. Pt able to stand with walker. All due meds given. Blood sugar check completed with no insulin sliding scale required. Will endorse pt to AM shift nurse for continuation of care.
[2018-11-25 07:22] VITALS: BP 132/77; PULSE 98; RESP 17
[2018-11-25 07:37] VITALS: BP 119/69; PULSE 82; RESP 17
[2018-11-25] MEDS: TAMSULOSIN (SR) 0.4 MG CAP PO SCH (08:31)
[2018-11-25] MEDS: ASPIRIN 81 MG TAB PO SCH (08:31)
[2018-11-25] MEDS: LISINOPRIL 5 MG TAB PO SCH (08:31)
[2018-11-25] MEDS: GABAPENTIN 100 MG CAP PO SCH ×3 (08:31→20:49)
[2018-11-25] MEDS: INSULIN ASPART [NOVOLOG] 3 ML PEN SC SCH ×7 (08:35→20:49)
[2018-11-25] MEDS: VANCOMYCIN 750 MG in SOD CHLORIDE 0.9% 150 ML IVPB SCH ×2 (09:25→20:49)
[2018-11-25] MEDS: ACETAMINOPHEN 325 MG TAB PO PRN (09:27)
--- NOTE | 2018-11-25 10:09 | NUR ---
RX NOTE RE: VANCOMYCIN VANCO PER RX BUN/SCR: 15/0.9 WBC: 5.3 TMAX: 98.4 ALLERGIES: NKDA OTHER ABX: LEVAQUIN VANCO TROUGH: 15.4 VANCO TROUGH THERAPEUTIC. CONTINUE CURRENT REGIMEN OF VANCOMYCIN 750MG IV Q12HR. PHARMACY TO FOLLOW
--- NOTE | 2018-11-25 11:50 | PN ---
Date/Time of Note Date/Time of Note DATE: 11/25/18 TIME: 11:44 Assessment/Plan VTE Prophylaxis Risk score (from Nsg)>0 risk: 5 SCD applied (from Nsg): Yes Pharmacological prophylaxis: heparin Lines/Catheters IV Catheter Type (from Nrsg): PICC Line Central line still needed: Yes Assessment/Plan Assessment/Plan 58M with history of IDDM, stage 2 CKD, peripheral vascular disease status post foot amputations for osteomyelitis as well as severe diabetic retinopathy; presents with sepsis, ALMAS, hypotension, PO intolerance, flank pain. #Sepsis-likely secondary to cellulitis of R foot and positive bacteremia - reported PO intolerance on admission but now tolerating diet fine - Blood cultures growing coagulase-negative staph and Corynebacterium species. MRI of the foot noted as well, signs of osteomyelitis. - For now continue current antibiotics Zosyn and vancomycin - Follow-up recommendations from podiatry and infectious disease teams -patient again had PICC placement - likely will need 6 weeks of antibiotics total - s/p debridement on 11/24 #Flank pain- Renal ultrasound shows nonobstructing stone, no e/o pyelo- Now resolving. #ALMAS- Likely due to dehydration- Now resolved. - Patient is pending outpatient nephrology appointment. #Chest pain- History not typical of cardiac chest pain- Trops negative, EKG with poor R wave progression otherwise no ST-T change concerning for ischemia. -Continue Protonix for suspected GERD. #IDDM-patient had hyperglycemic on admission, blood sugars stable. A1c equals 8.2 - Cont home insulin DVT: SCDs GI: Protonix Result Diagram: 11/25/18 0515 11/25/18 0515 Results 24hrs Laboratory Tests Test 11/24/18 17:25 11/24/18 20:15 11/25/18 05:15 11/25/18 08:02 Bedside Glucose 179 134 197 White Blood 5.3 # Count Red Blood Count 2.73 L Hemoglobin 8.0 L Hematocrit 24.3 L Mean Corpuscular 89.0 Volume Mean Corpuscular 29.3 Hemoglobin Mean Corpuscular 32.9 Hemoglobin Alda nt Red Cell 12.7 Distribution Width Platelet Count 417 H Mean Platelet 8.6 Volume Immature 0.400 Granulocytes % Neutrophils % 57.0 Lymphocytes % 28.4 Monocytes % 9.8 Eosinophils % 3.8 Basophils % 0.6 Nucleated Red 0.0 Blood Cells % Immature 0.020 Granulocytes # Neutrophils # 3.0 Lymphocytes # 1.5 Monocytes # 0.5 Eosinophils # 0.2 Basophils # 0.0 Nucleated Red 0.0 Blood Cells # Sodium Level 139 Potassium Level 4.4 Chloride Level 98 Carbon Dioxide 30 Level Anion Gap 11 Blood Urea 15 Nitrogen Creatinine 0.90 Est Glomerular > 60 Filtrat Rate mL/min Glucose Level 176 Calcium Level 9.1 Phosphorus Level 4.4 Magnesium Level 1.7 Test 11/25/18 08:13 Vancomycin Level 15.4 Trough Subjective 24 Hr Interval Summary Free Text/Dictation No acute overnight events. Patient feeling well. Exam/Review of Systems Vital Signs Vitals Vital Signs Date Temp Pulse Resp B/P (MAP) Pulse Ox O2 O2 Flow FiO2 Time Delivery Rate 11/25/18 98.4 82 17 119/69 99 Room Air 07:37 (86) 11/24/18 2.0 09:21 Intake and Output 11/24/18 11/24/18 11/25/18 1515:00 23:00 07:00 IntakeIntake Total 1810 ml 390 ml 680 ml OutputOutput Total 20 ml 1450 ml 1450 ml BalanceBalance 1790 ml -1060 ml -770 ml Exam Gen: Well appearing man in no acute distress. Eyes: PERRL, no icterus HEENT: Moist mucous membranes, clear oropharynx Neck: No lymphadenopathy, no JVD Card: Regular rate and rhythm, no murmurs Pulm: Clear to auscultation bilaterally Back: No CVA tenderness. No midline spine tenderness. Abd: Soft, nondistended, mild TTP RLQ. Ext: L foot transmetatarsal amputation, clean appearing. R foot bandaged. Medications Medications Current Medications Aspirin (Aspirin) 81 mg DAILY PO Last administered on 11/25/18at 08:31; Admin D ose 81 MG; Start 11/15/18 at 09:00 Atorvastatin Calcium (Lipitor) 20 mg QHS PO Last administered on 11/24/18at 20:20; Admin Dose 20 MG; Start 11/14/18 at 21:00 Gabapentin (Neurontin) 100 mg TID PO Last administered on 11/25/18at 08:31; Admin Dose 100 MG; Start 11/14/18 at 21:00 Lisinopril (Zestril) 5 mg DAILY PO Last administered on 11/25/18 08:31; Admin Dose 5 MG; Start 11/15/18 at 09:00 Tamsulosin HCl (Flomax) 0.4 mg DAILY PO Last administered on 11/25/18 08:31; Admin Dose 0.4 MG; Start 11/15/18 at 09:00 IV Flush (NS 3 ml) 3 ml PER PROTOCOL IV ; Start 11/14/18 at 18:00 Metoclopramide HCl (Reglan) 10 mg Q6H PRN IV NAUSEA AND/OR VOMITING Last administered on 11/16/18 08:27; Admin Dose 10 MG; Start 11/14/18 at 18:00 Acetaminophen (Tylenol Tab) 650 mg Q6H PRN PO PAIN LEVEL 1-3 OR FEVER Last administered on 11/25/18 09:27; Admin Dose 650 MG; Start 11/14/18 at 18:00 Pantoprazole (Protonix Tab) 40 mg DAILY@0600 PO Last administered on 11/25/18 05:20; Admin Dose 40 MG; Start 11/14/18 at 18:30 Senna (Senokot) 2 tab BID PRN PO CONSTIPATION Last administered on 11/24/18 20:24; Admin Dose 2 TAB; Start 11/14/18 at 18:30 Diagnostic Test (Pha) (Accu-Chek) 1 ea 02 XX ; Start 11/15/18 at 02:00 Insulin Glargine (Lantus) 21 units DAILY@2000 SC Last administered on 11/24/18 20:23; Admin Dose 21 UNITS; Start 11/14/18 at 20:00 Insulin Aspart (Novolog Insulin Pen) 7 unit WITH MEALS SC Last administered on 11/25/18 08:35; Admin Dose 7 UNIT; Start 11/15/18 at 08:00 Miscellaneous Information 1 ea NOTE XX ; Start 11/14/18 at 19:00 Glucose (Glutose) 15 gm Q15M PRN PO DECREASED GLUCOSE; Start 11/14/18 at 19:00 Glucose (Glutose) 22.5 gm Q15M PRN PO DECREASED GLUCOSE; Start 11/14/18 at 19:00 Dextrose (D50w Syringe) 25 ml Q15M PRN IV DECREASED GLUCOSE; Start 11/14/18 at 19:00 Dextrose (D50w Syringe) 50 ml Q15M PRN IV DECREASED GLUCOSE; Start 11/14/18 at 19:00 Glucagon (Glucagen) 1 mg Q15M PRN IM DECREASED GLUCOSE; Start 11/14/18 at 19:00 Glucose (Glutose) 15 gm Q15M PRN BUCCAL DECREASED GLUCOSE; Start 11/14/18 at 19:00 Vancomycin HCl (Vanco Iv Per Pharmacy) VANCOMYCIN PER PHARMACY PER PROTOCOL XX ; Start 11/16/18 at 07:00 Heparin Sodium (Porcine) (Heparin (5000 Units/1ml)) 5,000 unit Q8 SC Last administered on 11/25/18at 05:18; Admin Dose 5,000 UNIT; Start 11/16/18 at 14:00 IV Flush (NS 10 ml) 10 ml PRN PRN IV FLUSH LINE; Start 11/19/18 at 16:30 Alteplase, Recombinant (Cathflo (Activase)) 2 mg MAY REPEAT X1 PRN CATHETER IF CATHETER REMAINS OCCULUDED Last administered on 11/22/18at 12:52; Admin Dose 2 MG; Start 11/22/18 at 12:30 Vancomycin HCl 750 mg/Sodium Chloride 150 ml @ 75 mls/hr Q12 IVPB Last administered on 11/25/18at 09:25; Admin Dose 75 MLS/HR; Start 11/23/18 at 21:00 Insulin Aspart (Novolog Insulin Pen) NOVOLOG *MODERATE* ALGORITHM WITH MEALS BEDTIME SC Last administered on 11/25/18at 08:36; Admin Dose 4 UNIT; Start 11/24/18 at 18:00 Levofloxacin (Levaquin) 500 mg DAILY@06 PO Last administered on 11/25/18at 05:11; Admin Dose 500 MG; Start 11/25/18 at 06:00 CLOVIS JACKMAN MD Nov 25, 2018 11:50
[2018-11-25 13:43] VITALS: BP 93/55; PULSE 82; RESP 16
--- NOTE | 2018-11-25 15:15 | CONS ---
Date/Time of Note Date/Time of Note DATE: 11/25/18 TIME: 15:14 Assessment/Plan Assessment/Plan Chief Complaint/Hosp Course Alert, feels good, no fevers Microbiology: Blood cultures growing gram-positive cocci in clusters 1 out of 2 sets Antimicrobials: Vancomycin and Levaquin Physical examination: Well-nourished well-developed middle-aged man who is awake in no distress. Head atraumatic normocephalic sclera nonicteric. Neck is supple chest rise symmetrical breath sounds clear. Heart: S1-S2. Abdomen soft bowel sounds present. Extremities with right foot deformed and with area of erythema on the medial part. Assessment: 1. Systemic inflammatory response syndrome with fevers and leukocytosis 2. Right foot cellulitis/Charcot/OM, status post I&D yesterday 3. Gram-positive cocci bacteremia possibly secondary to #2 4. Diabetes Plan: Remains stable, pending intraoperative cultures, continue antibiotics, wound management per podiatry. Anticipate discharge on IV antibiotics for 6 weeks Consultation Date/Type/Reason Admit Date/Time Nov 15, 2018 at 11:09 Initial Consult Date Type of Consult ID Exam/Review of Systems Vital Signs Vitals Vital Signs Date Temp Pulse Resp B/P (MAP) Pulse Ox O2 O2 Flow FiO2 Time Delivery Rate 11/25/18 97.7 82 16 93/55 (68) 98 Room Air 13:43 11/24/18 2.0 09:21 Intake and Output 11/24/18 11/24/18 11/25/18 1515:00 23:00 07:00 IntakeIntake Total 1810 ml 390 ml 680 ml OutputOutput Total 20 ml 1450 ml 1450 ml BalanceBalance 1790 ml -1060 ml -770 ml Medications Medications Current Medications Aspirin (Aspirin) 81 mg DAILY PO Last administered on 11/25/18at 08:31; Admin Dose 81 MG; Start 11/15/18 at 09:00 Atorvastatin Calcium (Lipitor) 20 mg QHS PO Last administered on 11/24/18at 20:20; Admin Dose 20 MG; Start 11/14/18 at 21:00 Gabapentin (Neurontin) 100 mg TID PO Last administered on 11/25/18at 13:37; Admin Dose 100 MG; Start 11/14/18 at 21:00 Lisinopril (Zestril) 5 mg DAILY PO Last administered on 11/25/18 08:31; Admin Dose 5 MG; Start 11/15/18 at 09:00 Tamsulosin HCl (Flomax) 0.4 mg DAILY PO Last administered on 11/25/18 08:31; Admin Dose 0.4 MG; Start 11/15/18 at 09:00 IV Flush (NS 3 ml) 3 ml PER PROTOCOL IV ; Start 11/14/18 at 18:00 Metoclopramide HCl (Reglan) 10 mg Q6H PRN IV NAUSEA AND/OR VOMITING Last administered on 11/16/18 08:27; Admin Dose 10 MG; Start 11/14/18 at 18:00 Acetaminophen (Tylenol Tab) 650 mg Q6H PRN PO PAIN LEVEL 1-3 OR FEVER Last administered on 11/25/18 09:27; Admin Dose 650 MG; Start 11/14/18 at 18:00 Pantoprazole (Protonix Tab) 40 mg DAILY@0600 PO Last administered on 11/25/18 05:20; Admin Dose 40 MG; Start 11/14/18 at 18:30 Senna (Senokot) 2 tab BID PRN PO CONSTIPATION Last administered on 11/24/18 20:24; Admin Dose 2 TAB; Start 11/14/18 at 18:30 Diagnostic Test (Pha) (Accu-Chek) 1 ea 02 XX ; Start 11/15/18 at 02:00 Insulin Glargine (Lantus) 21 units DAILY@2000 SC Last administered on 11/24/18 20:23; Admin Dose 21 UNITS; Start 11/14/18 at 20:00 Insulin Aspart (Novolog Insulin Pen) 7 unit WITH MEALS SC Last administered on 11/25/18 12:41; Admin Dose 7 UNIT; Start 11/15/18 at 08:00 Miscellaneous Information 1 ea NOTE XX ; Start 11/14/18 at 19:00 Glucose (Glutose) 15 gm Q15M PRN PO DECREASED GLUCOSE; Start 11/14/18 at 19:00 Glucose (Glutose) 22.5 gm Q15M PRN PO DECREASED GLUCOSE; Start 11/14/18 at 19:00 Dextrose (D50w Syringe) 25 ml Q15M PRN IV DECREASED GLUCOSE; Start 11/14/18 at 19:00 Dextrose (D50w Syringe) 50 ml Q15M PRN IV DECREASED GLUCOSE; Start 11/14/18 at 19:00 Glucagon (Glucagen) 1 mg Q15M PRN IM DECREASED GLUCOSE; Start 11/14/18 at 19:00 Glucose (Glutose) 15 gm Q15M PRN BUCCAL DECREASED GLUCOSE; Start 11/14/18 at 19:00 Vancomycin HCl (Vanco Iv Per Pharmacy) VANCOMYCIN PER PHARMACY PER PROTOCOL XX ; Start 11/16/18 at 07:00 Heparin Sodium (Porcine) (Heparin (5000 Units/1ml)) 5,000 unit Q8 SC Last administered on 11/25/18at 14:10; Admin Dose 5,000 UNIT; Start 11/16/18 at 14:00 IV Flush (NS 10 ml) 10 ml PRN PRN IV FLUSH LINE; Start 11/19/18 at 16:30 Alteplase, Recombinant (Cathflo (Activase)) 2 mg MAY REPEAT X1 PRN CATHETER IF CATHETER REMAINS OCCULUDED Last administered on 11/22/18at 12:52; Admin Dose 2 MG; Start 11/22/18 at 12:30 Vancomycin HCl 750 mg/Sodium Chloride 150 ml @ 75 mls/hr Q12 IVPB Last administered on 11/25/18at 09:25; Admin Dose 75 MLS/HR; Start 11/23/18 at 21:00 Insulin Aspart (Novolog Insulin Pen) NOVOLOG *MODERATE* ALGORITHM WITH MEALS BEDTIME SC Last administered on 11/25/18at 12:41; Admin Dose 2 UNIT; Start 11/24/18 at 18:00 Levofloxacin (Levaquin) 500 mg DAILY@06 PO Last administered on 11/25/18at 05:11; Admin Dose 500 MG; Start 11/25/18 at 06:00 IRIS SANTIZO NP Nov 25, 2018 15:15
--- NOTE | 2018-11-25 18:00 | NUR ---
end of shift REPORT: PT IS RESTING S/P DEBRIDEMENT OF RIGHT FOOT. DRESSING IS DRY AND INTACT. CURRENT ANTIBIOTIC VANCOMYCIN IV GIVEN.PT C/O RIGHT FOOT PAIN ONE TIME AND TYLENOL PO GIVEN.. HOURLY ROUND DONE. CALL LIGHT WITHIN REACH. WILL FOLLOW UP
[2018-11-25 19:13] VITALS: BP 99/59; PULSE 81; RESP 18
[2018-11-25] MEDS: ATORVASTATIN 20 MG TAB PO SCH (20:49)
[2018-11-25] MEDS: INSULIN GLARGINE [LANTus] (100 UNITS/ML) SYG SC SCH (20:56)
[2018-11-25] MEDS: SENNA TAB PO PRN (21:28)
[2018-11-25] MEDS ORDERED: HYDROCORTISONE 1% 28 GM CR TOP SCH ×2 (23:00)
[2018-11-26 01:17] VITALS: BP 115/54; PULSE 70; RESP 18
[2018-11-26] MEDS: ACCU-CHEK XX SCH (01:30)
[2018-11-26] MEDS: PANTOPRAZOLE (EC) 40 MG TAB PO SCH (05:02)
[2018-11-26] MEDS: LEVOFLOXACIN 500 MG TAB PO SCH (05:02)
[2018-11-26] MEDS: ACETAMINOPHEN 325 MG TAB PO PRN ×2 (05:02→15:36)
[2018-11-26] MEDS: HEPARIN 5,000 UNIT/1 ML VIAL SC SCH ×3 (05:05→21:17)
--- NOTE | 2018-11-26 07:27 | NUR ---
SHIFT REPORT: NO SIGNIFICANT CHANGE OF CONDITION WAS NOTED THIS SHIFT.PATIENT WAS ABLE TO SLEEP COMFORTABLY.DUE MEDICATIONS WAS GIVEN. INSTRUCTED TO CALL FOR ASSISTANCE .ALL NEEDS MET AND ATTENDED.WILL CONTINUE TO MONITOR.
[2018-11-26 08:16] VITALS: BP 126/69; PULSE 74; RESP 18
[2018-11-26] MEDS: INSULIN ASPART [NOVOLOG] 3 ML PEN SC SCH ×7 (08:39→21:00)
[2018-11-26] MEDS: GABAPENTIN 100 MG CAP PO SCH ×3 (09:17→21:14)
[2018-11-26] MEDS: ASPIRIN 81 MG TAB PO SCH (09:17)
[2018-11-26] MEDS: TAMSULOSIN (SR) 0.4 MG CAP PO SCH (09:17)
[2018-11-26] MEDS: LISINOPRIL 5 MG TAB PO SCH (09:17)
[2018-11-26] MEDS: VANCOMYCIN 750 MG in SOD CHLORIDE 0.9% 150 ML IVPB SCH ×2 (09:19→21:15)
--- NOTE | 2018-11-26 11:43 | NUR ---
PT RE-ASSESSMENT , Therapy day number 1 Evaluation Start Time 10:45 Evaluation End Time 11:45 Evaluation Total Time 60 min Subjective Current complaint of pain Pain Scale NUMERIC Pain Intensity 3 (0-10) Patient Stated Goal for Pain Relief 0 (0-10) Pain Level Comment RT FOOT Pre Treatment Vital Signs Stable Yes - BP:126/69 HR:74 Exercise Assessment Label Bilat Lower Extremity Exercise Type Active ROM Additional Exercise Comments JKNEE FLEX, EXT, ADD, ABD , SLR , SAQ Supine to Sit Independent Transfer Sit to Stand Ability Contact Guard Assist Bed Mobility Sit to Supine Independent Bed Transfer Ability Contact Guard Assist Chair Transfer Ability Contact Guard Assist Sitting Tolerance 12 min Patient uses wheelchair Not Applicable Gait Assist Levels Contact Guard Assist Assistive Devices Front Wheel Walker Ambulation Distance 100 feet Additional Gait Comments HOPE TO GAIT PATTERN , ABLE TO MAINTAIN NWB ON RLE . Weight Bearing Assessment Label Right Lower Extremity Weight Bearing Status Non Weight Bearing Weight Bearing Assessment Label Bilat Lower Extremity Discontinued Yes Additional Stairs Assist Comments TBA WITH CRUTCHES WHEN ABLE. Static Sitting Balance Good Dynamic Sitting Balance Good Standing Static Balance Good Dynamic Standing Balance Fair plus Additional Balance Assessments Comments W/FWW , WILL ADVANCE TO CRUTCHES WHEN ABLE . Safety Judgement Good Activity Tolerance Good Equipment Present A pump IV pump Post Treatment Pain Intensity 2 0-10 Variance Documentation P/S SEE PT NOTE . PT Technical Record Comment PT RE-EVALUATION , RN CLEARED , PATIENT AGREEABLE . PATIENT IS A 58 Y/O MALE WITH PMH: DM , CKD RT FOOT CHARCOT NEUROARTHROPATHY , OSTEOMYELITIS ,LT BLIND EYE , S/P LT TRANSMETATARSAL AMPUTATION ON 11/24/18 UNDERWENT RT FOOT BONE RESECTION WITH APPLICATION OF ANTIBIOTIC SPACER , PATIENT IS ALERT AND ORIENTED TO SELF , SITUATION , COOPERATIVE AND MOTIVATED , P/S SEE PT NOTE FOR PATIENT'S FUNCTIONAL STATUS , GAIT TR W/FWW PERFORMED 100' WITH MIN A , HAS HOPE TO GAIT PATTERN , ABLE TO MAINTAIN NWB ON RLE , PATIENT RETURNED BACK TO BED CGA , VS STABLE TOLERATED WELL , MD PRESENT IN ROOM .INSTRUCTED THE PATIENT IN A/ROM BLE'S ( HIPS AND KNEES ). A: PATIENT LIVES WITH GIRL FRIEND AND DAUGHTER IN AN APARTMENT 2ND FLOOR , WITH ONE FLIGHT STAIRS TO ENTER , ( NO ELEVATOR ACCESS).PLAN TO RETURN HOME ONCE CLEARED BY . .P: PT DAILY X 7 ( ROM BOTH HIPS AND KNEES , TRANSFER TR , GAIT TR W/FWW , ADVANCE TO CRUTCHES , STAIR TR WITH JoonCRUTCHES , PATIENT EDUCATION AND TRAINING ).
--- NOTE | 2018-11-26 12:44 | CONS ---
Date/Time of Note Date/Time of Note DATE: 11/26/18 TIME: 12:42 Assessment/Plan Assessment/Plan Hospital Course Alert, feels good, no fevers Microbiology: Blood cultures growing gram-positive cocci in clusters 1 out of 2 sets Antimicrobials: Vancomycin and Levaquin Physical examination: Well-nourished well-developed middle-aged man who is awake in no distress. Head atraumatic normocephalic sclera nonicteric. Neck is supple chest rise symmetrical breath sounds clear. Heart: S1-S2. Abdomen soft bowel sounds present. Extremities with right foot deformed and with area of erythema on the medial part. Assessment: 1. Systemic inflammatory response syndrome with fevers and leukocytosis 2. Right foot cellulitis/Charcot/OM, status post I&D yesterday 3. Gram-positive cocci bacteremia possibly secondary to #2 4. Diabetes Plan: Stable, intraoperative cultures negative, ok discharge on current antibiotics for 6 weeks with close monitoring of renal f-n while on Vanco, f/u podiatry Result Diagram: 11/26/18 0457 11/26/18 0457 Results 24hrs Laboratory Tests Test 11/25/18 17:13 11/25/18 20:47 11/26/18 04:57 11/26/18 08:31 Bedside Glucose 172 180 198 White Blood 5.6 Count Red Blood Count 2.83 L Hemoglobin 8.3 L Hematocrit 24.9 L Mean Corpuscular 88.0 Volume Mean Corpuscular 29.3 Hemoglobin Mean Corpuscular 33.3 Hemoglobin Alda nt Red Cell 12.5 Distribution Width Platelet Count 433 H Mean Platelet 8.9 Volume Immature 0.200 Granulocytes % Neutrophils % 56.7 Lymphocytes % 28.4 Monocytes % 9.2 Eosinophils % 4.8 Basophils % 0.7 Nucleated Red 0.0 Blood Cells % Immature 0.010 Granulocytes # Neutrophils # 3.2 Lymphocytes # 1.6 Monocytes # 0.5 Eosinophils # 0.3 Basophils # 0.0 Nucleated Red 0.0 Blood Cells # Sodium Level 136 Potassium Level 4.4 Chloride Level 96 L Carbon Dioxide 32 H Level Anion Gap 8 Blood Urea 18 Nitrogen Creatinine 1.01 Est Glomerular > 60 Filtrat Rate mL/min Glucose Level 201 Calcium Level 8.9 Test 11/26/18 12:26 Bedside Glucose 123 Consultation Date/Type/Reason Admit Date/Time Nov 15, 2018 at 11:09 Initial Consult Date Type of Consult ID Exam/Review of Systems Vital Signs Vitals Vital Signs Date Temp Pulse Resp B/P (MAP) Pulse Ox O2 O2 Flow FiO2 Time Delivery Rate 11/26/18 98.7 74 18 126/69 98 08:16 (88) 11/25/18 Room Air 13:43 11/24/18 2.0 09:21 Intake and Output 11/25/18 11/25/18 11/26/18 1414:59 22:59 06:59 IntakeIntake Total 600 ml 750 ml 150 ml OutputOutput Total 650 ml BalanceBalance 600 ml 100 ml 150 ml Medications Medications Current Medications Aspirin (Aspirin) 81 mg DAILY PO Last administered on 11/26/18 09:17; Admin Dose 81 MG; Start 11/15/18 at 09:00 Atorvastatin Calcium (Lipitor) 20 mg QHS PO Last administered on 11/25/18at 20:49; Admin Dose 20 MG; Start 11/14/18 at 21:00 Gabapentin (Neurontin) 100 mg TID PO Last administered on 11/26/18 09:17; Admin Dose 100 MG; Start 11/14/18 at 21:00 Lisinopril (Zestril) 5 mg DAILY PO Last administered on 11/26/18 09:17; Admin Dose 5 MG; Start 11/15/18 at 09:00 Tamsulosin HCl (Flomax) 0.4 mg DAILY PO Last administered on 11/26/18 09:17; Admin Dose 0.4 MG; Start 11/15/18 at 09:00 IV Flush (NS 3 ml) 3 ml PER PROTOCOL IV ; Start 11/14/18 at 18:00 Metoclopramide HCl (Reglan) 10 mg Q6H PRN IV NAUSEA AND/OR VOMITING Last administered on 11/16/18at 08:27; Admin Dose 10 MG; Start 11/14/18 at 18:00 Acetaminophen (Tylenol Tab) 650 mg Q6H PRN PO PAIN LEVEL 1-3 OR FEVER Last administered on 11/26/18 05:02; Admin Dose 650 MG; Start 11/14/18 at 18:00 Pantoprazole (Protonix Tab) 40 mg DAILY@0600 PO Last administered on 11/26/18 05:02; Admin Dose 40 MG; Start 11/14/18 at 18:30 Senna (Senokot) 2 tab BID PRN PO CONSTIPATION Last administered on 11/25/18at 21:28; Admin Dose 2 TAB; Start 11/14/18 at 18:30 Diagnostic Test (Pha) (Accu-Chek) 1 ea 02 XX ; Start 11/15/18 at 02:00 Insulin Glargine (Lantus) 21 units DAILY@2000 SC Last administered on 11/25/18at 20:56; Admin Dose 21 UNITS; Start 11/14/18 at 20:00 Insulin Aspart (Novolog Insulin Pen) 7 unit WITH MEALS SC Last administered on 11/26/18at 08:39; Admin Dose 7 UNIT; Start 11/15/18 at 08:00 Miscellaneous Information 1 ea NOTE XX ; Start 11/14/18 at 19:00 Glucose (Glutose) 15 gm Q15M PRN PO DECREASED GLUCOSE; Start 11/14/18 at 19:00 Glucose (Glutose) 22.5 gm Q15M PRN PO DECREASED GLUCOSE; Start 11/14/18 at 19:00 Dextrose (D50w Syringe) 25 ml Q15M PRN IV DECREASED GLUCOSE; Start 11/14/18 at 19:00 Dextrose (D50w Syringe) 50 ml Q15M PRN IV DECREASED GLUCOSE; Start 11/14/18 at 19:00 Glucagon (Glucagen) 1 mg Q15M PRN IM DECREASED GLUCOSE; Start 11/14/18 at 19:00 Glucose (Glutose) 15 gm Q15M PRN BUCCAL DECREASED GLUCOSE; Start 11/14/18 at 19:00 Vancomycin HCl (Vanco Iv Per Pharmacy) VANCOMYCIN PER PHARMACY PER PROTOCOL XX ; Start 11/16/18 at 07:00 Heparin Sodium (Porcine) (Heparin (5000 Units/1ml)) 5,000 unit Q8 SC Last administered on 11/26/18at 05:05; Admin Dose 5,000 UNIT; Start 11/16/18 at 14:00 IV Flush (NS 10 ml) 10 ml PRN PRN IV FLUSH LINE; Start 11/19/18 at 16:30 Alteplase, Recombinant (Cathflo (Activase)) 2 mg MAY REPEAT X1 PRN CATHETER IF CATHETER REMAINS OCCULUDED Last administered on 11/22/18at 12:52; Admin Dose 2 MG; Start 11/22/18 at 12:30 Vancomycin HCl 750 mg/Sodium Chloride 150 ml @ 75 mls/hr Q12 IVPB Last administered on 11/26/18at 09:19; Admin Dose 75 MLS/HR; Start 11/23/18 at 21:00 Insulin Aspart (Novolog Insulin Pen) NOVOLOG *MODERATE* ALGORITHM WITH MEALS BEDTIME SC Last administered on 11/26/18at 08:40; Admin Dose 4 UNIT; Start 11/24/18 at 18:00 Levofloxacin (Levaquin) 500 mg DAILY@06 PO Last administered on 11/26/18at 05:02; Admin Dose 500 MG; Start 11/25/18 at 06:00 IRIS SANTIZO NP Nov 26, 2018 12:44
[2018-11-26] MEDS ORDERED: LEVO500T48 PO (12:57)
--- NOTE | 2018-11-26 12:59 | PDOCDIS ---
Discharge Instructions DIAGNOSIS Discharge Diagnosis Suspected osteomyelitis of R foot CONDITION [id number] Patient Condition: [id number] Fair HOME CARE INSTRUCTIONS: [id number] Special Diet: Zndeb7w CARB CONTROL ACTIVITY: [id number] Activity Restrictions: [id number] Weight Bearing (Nonweightbearing of R foot) FOLLOW UP/APPOINTMENTS Follow-up Plan 1. Take all medications as prescribed. 2. Keep weight off your R foot. 3. See your primary care doctor as scheduled. 4.See Dr. Keyes or Dr. Ta in clinic next week for wound check and dressing change. 5. You need antibiotics for 6 weeks until Jan 04. You will get IV vancomycin and also oral levofloxacin. CLOVIS JACKMAN MD Nov 26, 2018 12:59
--- NOTE | 2018-11-26 14:03 | NUR ---
SS NOTE: LOS SW REFERRED TO PT REGARDING LOS. PT IS 58 YR OLD MALE ADMITTED FROM HOME FOR DEHYDRATION. SW MET WITH PT AT BEDSIDE, PT APPEARED TO BE A&OX4 AND COPING APPROPRIATELY WITH ADMISSION. PT STATED THAT HE LIVES AT HOME WITH HIS TATIANNA ([phone]). PT HAS STRONG SUPPORT SYSTEM FROM HIS DAUGHTER AND FAMILY. PT STATED THAT HIS DAUGHTER TATIANNA HIS PRIMARY SURROGATE DECISION MAKER. PT STATED THAT HE DOES NOT HAVE AHCD AT THIS TIME. PT'S FAMILY PROVIDES ASSISTANCE FOR APPOINTMENTS TO THE PCP. PT STATED THAT HE IS DISABLED AND RECEIVING SOCIAL SECURITY FINANCIAL BENEFIT ($1200 PER MONTH). PT STATED THAT HE DOES NOT HAVE DME IN THE HOUSEHOLD. PT REPORTED GOOD COMMUNICATION WITH THE MEDICAL TEAM REGARDING PLAN OF CARE. NO PCC NEEDED AT THIS TIME. SW DISCUSSED, EDUCATED AND PROVIDED AHCD FORM. PLAN IS FOR PT TO REVIEW AND COMPLETE AT HOME. SW PROVIDED HIM CLERK CONTACT INFO FOR ANY NEEDED RESOURCES. SW REMAINS AVAILABLE FOR F/U NEEDED.
--- NOTE | 2018-11-26 14:47 | NUR ---
TEREZA NOTE: IV ABX S/W pt at bedside to confirm demographics on face sheet. Order for IV ABX sent to [facility] (P:[phone], F:[phone]) [facility] ([phone], F:[phone]). Confirmation received. Bob Thomas RN CM [id number] Addendum: 11/27/18 at 1014 by EZEQUIEL THOMAS CM S/W Z[facility] from [facility] who states that they are accepting pt with SOC today, delivery to be arranged later this evening. IV admin to be done by [facility] (P:[phone]). CORINA Monroe aware. Addendum: 11/27/18 at 1234 by EZEQUIEL THOMAS CM Updated order for PT faxed to [facility] ([phone], F:[phone]). Order for DME faxed to [facility] ([phone], F:[phone]). Both orders faxed to [facility] ([phone], F:[phone]). Confirmation received. Addendum: 11/27/18 at 1347 by EZEQUIEL THOMAS CM [facility] Delivered to pt bedside. Pt signed for receipt of walker. Receipt left at pt bedside. Per Dr. Donovan, HHPT no longer needed. Pt clear for D/C. CORINA Monroe aware.
[2018-11-26] MEDS: SENNA TAB PO PRN (15:35)
[2018-11-26 15:51] VITALS: BP 140/75; PULSE 86; RESP 16
--- NOTE | 2018-11-26 17:33 | PN ---
Date/Time of Note Date/Time of Note DATE: 11/26/18 TIME: 17:31 Assessment/Plan VTE Prophylaxis Risk score (from Nsg)>0 risk: 3 SCD applied (from Ns): No SCD contraindicated: other (no) Pharmacological prophylaxis: heparin Lines/Catheters IV Catheter Type (from Nrsg): PICC Line Central line still needed: Yes Assessment/Plan Assessment/Plan 58M with history of IDDM, stage 2 CKD, peripheral vascular disease status post foot amputations for osteomyelitis as well as severe diabetic retinopathy; presents with sepsis, ALMAS, hypotension, PO intolerance, flank pain. #Sepsis-likely secondary to cellulitis of R foot and positive bacteremia - reported PO intolerance on admission but now tolerating diet fine - Blood cultures growing coagulase-negative staph and Corynebacterium species. MRI had maybe signs of osteomyelitis. - s/p debridement on 11/24 - Plan for 6 weeks of IV vancomycin and PO levofloxacin. #Flank pain- Renal ultrasound shows nonobstructing stone, no e/o pyelo- Now resolved #ALMAS- Likely due to dehydration- Now resolved. - Patient is pending outpatient nephrology appointment. #Chest pain- History not typical of cardiac chest pain- Trops negative, EKG with poor R wave progression otherwise no ST-T change concerning for ischemia. -Continue Protonix for suspected GERD. #IDDM-patient had hyperglycemic on admission, blood sugars stable. A1c equals 8.2 - Cont home insulin DVT: SCDs GI: Protonix Dispo: Plan to discharge home with 6 weeks IV vanco and PO levofloxacin. Result Diagram: 11/26/18 0457 11/26/18 0457 Results 24hrs Laboratory Tests Test 11/25/18 20:47 11/26/18 04:57 11/26/18 08:31 11/26/18 12:26 Bedside Glucose 180 198 123 White Blood 5.6 Count Red Blood Count 2.83 L Hemoglobin 8.3 L Hematocrit 24.9 L Mean Corpuscular 88.0 Volume Mean Corpuscular 29.3 Hemoglobin Mean Corpuscular 33.3 Hemoglobin Alda nt Red Cell 12.5 Distribution Width Platelet Count 433 H Mean Platelet 8.9 Volume Immature 0.200 Granulocytes % Neutrophils % 56.7 Lymphocytes % 28.4 Monocytes % 9.2 Eosinophils % 4.8 Basophils % 0.7 Nucleated Red 0.0 Blood Cells % Immature 0.010 Granulocytes # Neutrophils # 3.2 Lymphocytes # 1.6 Monocytes # 0.5 Eosinophils # 0.3 Basophils # 0.0 Nucleated Red 0.0 Blood Cells # Sodium Level 136 Potassium Level 4.4 Chloride Level 96 L Carbon Dioxide 32 H Level Anion Gap 8 Blood Urea 18 Nitrogen Creatinine 1.01 Est Glomerular > 60 Filtrat Rate mL/min Glucose Level 201 Calcium Level 8.9 Subjective 24 Hr Interval Summary Free Text/Dictation No acute overnight events. Dressing change by podiatry today. Walked with PT as well. Exam/Review of Systems Vital Signs Vitals Vital Signs Date Temp Pulse Resp B/P (MAP) Pulse Ox O2 O2 Flow FiO2 Time Delivery Rate 11/26/18 98.5 86 16 140/75 98 15:51 (96) 11/25/18 Room Air 13:43 11/24/18 2.0 09:21 Intake and Output 11/25/18 11/25/18 11/26/18 1515:00 23:00 07:00 IntakeIntake Total 600 ml 750 ml 150 ml OutputOutput Total 650 ml BalanceBalance 600 ml 100 ml 150 ml Medications Medications Current Medications Aspirin (Aspirin) 81 mg DAILY PO Last administered on 11/26/18 09:17; Admin Dose 81 MG; Start 11/15/18 at 09:00 Atorvastatin Calcium (Lipitor) 20 mg QHS PO Last administered on 11/25/18at 20:49; Admin Dose 20 MG; Start 11/14/18 at 21:00 Gabapentin (Neurontin) 100 mg TID PO Last administered on 11/26/18 15:35; Admin Dose 100 MG; Start 11/14/18 at 21:00 Lisinopril (Zestril) 5 mg DAILY PO Last administered on 11/26/18 09:17; Admin Dose 5 MG; Start 11/15/18 at 09:00 Tamsulosin HCl (Flomax) 0.4 mg DAILY PO Last administered on 11/26/18 09:17; Admin Dose 0.4 MG; Start 11/15/18 at 09:00 IV Flush (NS 3 ml) 3 ml PER PROTOCOL IV ; Start 11/14/18 at 18:00 Metoclopramide HCl (Reglan) 10 mg Q6H PRN IV NAUSEA AND/OR VOMITING Last administered on 11/16/18at 08:27; Admin Dose 10 MG; Start 11/14/18 at 18:00 Acetaminophen (Tylenol Tab) 650 mg Q6H PRN PO PAIN LEVEL 1-3 OR FEVER Last administered on 11/26/18at 15:36; Admin Dose 650 MG; Start 11/14/18 at 18:00 Pantoprazole (Protonix Tab) 40 mg DAILY@0600 PO Last administered on 11/26/18at 05:02; Admin Dose 40 MG; Start 11/14/18 at 18:30 Senna (Senokot) 2 tab BID PRN PO CONSTIPATION Last administered on 11/26/18at 15:35; Admin Dose 2 TAB; Start 11/14/18 at 18:30 Diagnostic Test (Pha) (Accu-Chek) 1 ea 02 XX ; Start 11/15/18 at 02:00 Insulin Glargine (Lantus) 21 units DAILY@2000 SC Last administered on 11/25/18at 20:56; Admin Dose 21 UNITS; Start 11/14/18 at 20:00 Insulin Aspart (Novolog Insulin Pen) 7 unit WITH MEALS SC Last administered on 11/26/18at 13:47; Admin Dose 7 UNIT; Start 11/15/18 at 08:00 Miscellaneous Information 1 ea NOTE XX ; Start 11/14/18 at 19:00 Glucose (Glutose) 15 gm Q15M PRN PO DECREASED GLUCOSE; Start 11/14/18 at 19:00 Glucose (Glutose) 22.5 gm Q15M PRN PO DECREASED GLUCOSE; Start 11/14/18 at 19:00 Dextrose (D50w Syringe) 25 ml Q15M PRN IV DECREASED GLUCOSE; Start 11/14/18 at 19:00 Dextrose (D50w Syringe) 50 ml Q15M PRN IV DECREASED GLUCOSE; Start 11/14/18 at 19:00 Glucagon (Glucagen) 1 mg Q15M PRN IM DECREASED GLUCOSE; Start 11/14/18 at 19:00 Glucose (Glutose) 15 gm Q15M PRN BUCCAL DECREASED GLUCOSE; Start 11/14/18 at 19:00 Vancomycin HCl (Vanco Iv Per Pharmacy) VANCOMYCIN PER PHARMACY PER PROTOCOL XX ; Start 11/16/18 at 07:00 Heparin Sodium (Porcine) (Heparin (5000 Units/1ml)) 5,000 unit Q8 SC Last administered on 11/26/18at 16:10; Admin Dose 5,000 UNIT; Start 11/16/18 at 14:00 IV Flush (NS 10 ml) 10 ml PRN PRN IV FLUSH LINE; Start 11/19/18 at 16:30 Alteplase, Recombinant (Cathflo (Activase)) 2 mg MAY REPEAT X1 PRN CATHETER IF CATHETER REMAINS OCCULUDED Last administered on 11/22/18at 12:52; Admin Dose 2 MG; Start 11/22/18 at 12:30 Vancomycin HCl 750 mg/Sodium Chloride 150 ml @ 75 mls/hr Q12 IVPB Last administered on 11/26/18at 09:19; Admin Dose 75 MLS/HR; Start 11/23/18 at 21:00 Insulin Aspart (Novolog Insulin Pen) NOVOLOG *MODERATE* ALGORITHM WITH MEALS BEDTIME SC Last administered on 11/26/18at 08:40; Admin Dose 4 UNIT; Start 11/24/18 at 18:00 Levofloxacin (Levaquin) 500 mg DAILY@06 PO Last administered on 11/26/18at 05:02; Admin Dose 500 MG; Start 11/25/18 at 06:00 CLOVIS JACKMAN MD Nov 26, 2018 17:33
--- NOTE | 2018-11-26 18:21 | NUR ---
END OF SHIFT NOTES: PT STABLE, ALERT & ORIENTED X4. D/C ORDER TO HOME WITH HH. DRESSING CHANGE ON RIGHT LEG PERFORMED BY . C/O MILD PAIN, TYLENOL ADMINISTERED. NO DISTRESS NOTED. INSTRUCTED PT TO CALL FOR ASSISTANCE. VS WNL.HOURLY ROUNDING. CALL LIGHT WITHIN REACH.ALL NEEDS MET. NO NEW COMPLAINTS.
[2018-11-26 20:00] VITALS: BP 101/62; PULSE 78; RESP 17
[2018-11-26] MEDS: INSULIN GLARGINE [LANTus] (100 UNITS/ML) SYG SC SCH (20:24)
--- NOTE | 2018-11-26 20:47 | PN ---
Date/Time of Note Date/Time of Note DATE: 11/26/18 TIME: 20:46 Assessment/Plan VTE Prophylaxis Risk score (from Nsg)>0 risk: 3 Pharmacological prophylaxis: heparin Lines/Catheters IV Catheter Type (from Nrsg): PICC Line Central line still needed: Yes Assessment/Plan Hospital Course 58 y/o diabetic M patient presents to the floor with localized area of erythema with a foot collapse. The patient explains the archie changes has occurred within the past 2-3 weeks and has noticed his foot collapse. Reports intermittent pain to the right foot which is worsened with weight bearing activities. Patient used to work in the [employer] industry but is on disability. Patient has a history of left foot TMA and partial 5th ray resection to the right foot. Patient was admitted because of dehydration, flank pains and having nausea/vomiting. No other constitutional symptoms. 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 Non- invasive arterial studies revealed: Monophasic waveforms in the bilateral dorsalis pedis with decreased velocities. Decreased velocities in the right posterior tibial artery with monophasic waveforms. Recommend vascular consult. Intra-op cultures currently showing no growth, and pathology specimens are pending. Discussed with patient that surgical reconstruction will be needed and will plan for the future. Recommend home physical therapy. Continue with IV abx as recommended per ID and continue with PICC line abx for 6 weeks. Patient to follow up in [facility] clinic Medical decisions, treatment, and plan coordinated with Dr. Keyes. Result Diagram: 11/26/18 0457 11/26/18 0457 Results 24hrs Laboratory Tests Test 11/25/18 20:47 11/26/18 04:57 11/26/18 08:31 11/26/18 12:26 Bedside Glucose 180 198 123 White Blood 5.6 Count Red Blood Count 2.83 L Hemoglobin 8.3 L Hematocrit 24.9 L Mean Corpuscular 88.0 Volume Mean Corpuscular 29.3 Hemoglobin Mean Corpuscular 33.3 Hemoglobin Alda nt Red Cell 12.5 Distribution Width Platelet Count 433 H Mean Platelet 8.9 Volume Immature 0.200 Granulocytes % Neutrophils % 56.7 Lymphocytes % 28.4 Monocytes % 9.2 Eosinophils % 4.8 Basophils % 0.7 Nucleated Red 0.0 Blood Cells % Immature 0.010 Granulocytes # Neutrophils # 3.2 Lymphocytes # 1.6 Monocytes # 0.5 Eosinophils # 0.3 Basophils # 0.0 Nucleated Red 0.0 Blood Cells # Sodium Level 136 Potassium Level 4.4 Chloride Level 96 L Carbon Dioxide 32 H Level Anion Gap 8 Blood Urea 18 Nitrogen Creatinine 1.01 Est Glomerular > 60 Filtrat Rate mL/min Glucose Level 201 Calcium Level 8.9 Test 11/26/18 17:39 11/26/18 20:11 Bedside Glucose 165 168 Subjective 24 Hr Interval Summary Free Text/Dictation No acute events overnight. Exam/Review of Systems Vital Signs Vitals Vital Signs Date Temp Pulse Resp B/P (MAP) Pulse Ox O2 O2 Flow FiO2 Time Delivery Rate 11/26/18 98.5 86 16 140/75 98 15:51 (96) 11/25/18 Room Air 13:43 11/24/18 2.0 09:21 Intake and Output 11/25/18 11/25/18 11/26/18 1515:00 23:00 07:00 IntakeIntake Total 600 ml 750 ml 150 ml OutputOutput Total 650 ml BalanceBalance 600 ml 100 ml 150 ml Exam Incisions site well approximated, no sign of wound dehiscence or gapping, no proximal streaking, no purulence noted. Absent protective sensations Muscle strength 5/5 in all compartments of the foot Popliteal pulses palpable unable to palpable DP/PT pulses Capillary refill time less than 3 seconds to digits and TMA stump site. Left foot TMA appreciated Medications Medications Current Medications Aspirin (Aspirin) 81 mg DAILY PO Last administered on 11/26/18at 09:17; Admin Dose 81 MG; Start 11/15/18 at 09:00 Atorvastatin Calcium (Lipitor) 20 mg QHS PO Last administered on 11/25/18at 20:49; Admin Dose 20 MG; Start 11/14/18 at 21:00 Gabapentin (Neurontin) 100 mg TID PO Last administered on 11/26/18at 15:35; Admin Dose 100 MG; Start 11/14/18 at 21:00 Lisinopril (Zestril) 5 mg DAILY PO Last administered on 11/26/18 09:17; Admin Dose 5 MG; Start 11/15/18 at 09:00 Tamsulosin HCl (Flomax) 0.4 mg DAILY PO Last administered on 11/26/18 09:17; Admin Dose 0.4 MG; Start 11/15/18 at 09:00 IV Flush (NS 3 ml) 3 ml PER PROTOCOL IV ; Start 11/14/18 at 18:00 Metoclopramide HCl (Reglan) 10 mg Q6H PRN IV NAUSEA AND/OR VOMITING Last administered on 11/16/18at 08:27; Admin Dose 10 MG; Start 11/14/18 at 18:00 Acetaminophen (Tylenol Tab) 650 mg Q6H PRN PO PAIN LEVEL 1-3 OR FEVER Last administered on 11/26/18at 15:36; Admin Dose 650 MG; Start 11/14/18 at 18:00 Pantoprazole (Protonix Tab) 40 mg DAILY@0600 PO Last administered on 11/26/18at 05:02; Admin Dose 40 MG; Start 11/14/18 at 18:30 Senna (Senokot) 2 tab BID PRN PO CONSTIPATION Last administered on 11/26/18at 15:35; Admin Dose 2 TAB; Start 11/14/18 at 18:30 Diagnostic Test (Pha) (Accu-Chek) 1 ea 02 XX ; Start 11/15/18 at 02:00 Insulin Glargine (Lantus) 21 units DAILY@2000 SC Last administered on at 20:24; Admin Dose 21 UNITS; Start 11/14/18 at 20:00 Insulin Aspart (Novolog Insulin Pen) 7 unit WITH MEALS SC Last administered on 11/26/18at 17:42; Admin Dose 7 UNIT; Start 11/15/18 at 08:00 Miscellaneous Information 1 ea NOTE XX ; Start 11/14/18 at 19:00 Glucose (Glutose) 15 gm Q15M PRN PO DECREASED GLUCOSE; Start 11/14/18 at 19:00 Glucose (Glutose) 22.5 gm Q15M PRN PO DECREASED GLUCOSE; Start 11/14/18 at 19:00 Dextrose (D50w Syringe) 25 ml Q15M PRN IV DECREASED GLUCOSE; Start 11/14/18 at 19:00 Dextrose (D50w Syringe) 50 ml Q15M PRN IV DECREASED GLUCOSE; Start 11/14/18 at 19:00 Glucagon (Glucagen) 1 mg Q15M PRN IM DECREASED GLUCOSE; Start 11/14/18 at 19:00 Glucose (Glutose) 15 gm Q15M PRN BUCCAL DECREASED GLUCOSE; Start 11/14/18 at 19:00 Vancomycin HCl (Vanco Iv Per Pharmacy) VANCOMYCIN PER PHARMACY PER PROTOCOL XX ; Start 11/16/18 at 07:00 Heparin Sodium (Porcine) (Heparin (5000 Units/1ml)) 5,000 unit Q8 SC Last administered on 11/26/18at 16:10; Admin Dose 5,000 UNIT; Start 11/16/18 at 14:00 IV Flush (NS 10 ml) 10 ml PRN PRN IV FLUSH LINE; Start 11/19/18 at 16:30 Alteplase, Recombinant (Cathflo (Activase)) 2 mg MAY REPEAT X1 PRN CATHETER IF CATHETER REMAINS OCCULUDED Last administered on 11/22/18at 12:52; Admin Dose 2 MG; Start 11/22/18 at 12:30 Vancomycin HCl 750 mg/Sodium Chloride 150 ml @ 75 mls/hr Q12 IVPB Last administered on 11/26/18at 09:19; Admin Dose 75 MLS/HR; Start 11/23/18 at 21:00 Insulin Aspart (Novolog Insulin Pen) NOVOLOG *MODERATE* ALGORITHM WITH MEALS BEDTIME SC Last administered on 11/26/18at 17:41; Admin Dose 2 UNIT; Start 11/24/18 at 18:00 Levofloxacin (Levaquin) 500 mg DAILY@06 PO Last administered on 11/26/18at 05:02; Admin Dose 500 MG; Start 11/25/18 at 06:00 ML ROSALES DPM Nov 26, 2018 20:47
[2018-11-26] MEDS: ATORVASTATIN 20 MG TAB PO SCH (21:14)
[2018-11-27] MEDS: METOCLOPRAMIDE 10 MG INJ IV PRN ×2 (00:45→12:00)
[2018-11-27 02:00] VITALS: BP 112/56; PULSE 91; RESP 18
[2018-11-27] MEDS: ACCU-CHEK XX SCH (02:00)
--- NOTE | 2018-11-27 05:08 | NUR ---
EOSS: Pt still asleep at this time w/ no s/s of distress. Slept well through the night. Denies pain at this time. Due meds given. Needs attended to. Safety precautions in place. Comfort measures provided. Frequent checks done. Encouraged to call for help whenever necessary. Will endorse accordingly.
[2018-11-27] MEDS: LEVOFLOXACIN 500 MG TAB PO SCH (06:54)
[2018-11-27] MEDS: PANTOPRAZOLE (EC) 40 MG TAB PO SCH (06:54)
[2018-11-27] MEDS: HEPARIN 5,000 UNIT/1 ML VIAL SC SCH ×2 (06:57→13:11)
[2018-11-27 08:00] VITALS: BP 108/60; PULSE 88; RESP 18
[2018-11-27] MEDS: INSULIN ASPART [NOVOLOG] 3 ML PEN SC SCH ×4 (08:08→12:16)
[2018-11-27] MEDS: GABAPENTIN 100 MG CAP PO SCH ×2 (08:09→13:10)
[2018-11-27] MEDS: ASPIRIN 81 MG TAB PO SCH (08:09)
[2018-11-27] MEDS: TAMSULOSIN (SR) 0.4 MG CAP PO SCH (08:09)
[2018-11-27] MEDS: LISINOPRIL 5 MG TAB PO SCH (08:10)
[2018-11-27] MEDS: VANCOMYCIN 750 MG in SOD CHLORIDE 0.9% 150 ML IVPB SCH (08:10)
--- NOTE | 2018-11-27 09:30 | NUR ---
PT Note Therapy day number 2 Subjective Current complaint of pain Pain Scale NUMERIC Pain Intensity 4 (0-10) Patient Stated Goal for Pain Relief 0 (0-10) Pain Level Comment no increase pain with activity Pre Treatment Vital Signs Stable Yes Exercise Assessment Label Bilat Lower Extremity Exercise Type Active ROM Additional Exercise Comments sit-stand 5x with crutches and FWW Exercise Start Time 10:00 Exercise End Time 10:08 Total Exercise Time 8 min (8-127) Transfer Training Start Time 09:30 Supine to Sit Modified Independent Transfer Sit to Stand Ability Contact Guard Assist Bed Mobility Sit to Supine Modified Independent Bed Transfer Ability Minimum Assist Chair Transfer Ability Minimum Assist Additional Mobility Comments trialed crutches, unsteady compared to FWW. dizzy with sit, stand, drop BP Transfer Training End Time 09:50 Total Transfer Training Time 20 min (8-127) Patient uses wheelchair Not Applicable Gait Training Start Time 09:50 Gait Assist Levels Minimum Assist Assistive Devices Axillary Crutches Ambulation Distance 10 feet Additional Gait Comments LOBx1 needed [place] to recover, excess sway, difficulty keeping NWB, dizzy Gait Training End Time 10:00 Total Gait Training Treatment Time 10 min (8-127) Weight Bearing Assessment Label Right Lower Extremity Weight Bearing Status Non Weight Bearing Additional Stairs Assist Comments NA d/t poor tolerance to activity. pt has totalA for stairs at home Static Sitting Balance Good Dynamic Sitting Balance Good Standing Static Balance Fair Dynamic Standing Balance Fair Additional Balance Assessments Comments fair with FWW, fair- with crutches Safety Judgement Good Activity Tolerance Poor Equipment Present IV pump Post Treatment Pain Intensity 4 0-10 Quality Indicators Dizziness Additional Post Treatment Comment still slightly dizzy supine end of treatment. Total Treament Time 38 min (8-127) Total Minutes 38 Total Units 3 PT Technical Record Comment S: Pt found supine in bed, agreeable to PT. RN cleared pt for activity. O: Pt was seen for transfer training and gait training with crutches. Pt c/o 5/10 dizziness with sitting that worsened to 7/10 dizziness with standing and 10 feet ambulation with crutches Cheko. Pt was returned to bed and BP checked: Supine 101/58. Sitting 70/47. After 2 mins sitting 138/58. Standing 142/60. Pt still c/o 5/10 dizziness and refused further gait training with FWW. Pt was returned to bed with call light nearby, bed alarm on, all needs met. Discussed with RN pt response to activity and PT plan of care. A. Pt demonstrates greatly improved standing balance with FWW. With crutches pt had impaired balance, unsteady with excess lateral sway, lacking confidence, requiring min assistance to recover from minor LOB during 10 feet of ambulation with crutches and difficulty maintaining NWB RLE. Pt also greatly limited by dizziness upon supine-sit and sit-stand with initial large drop in BP. Pt does not require stair training at this time as he as totalA to ascend/descend stairs at home. Pt would benefit from continued inpatient PT to improve tolerance to activity and further gait training with FWW. P: Pt will benefit from FWW and HHPT once medically cleared by MD. Continue gait training with FWW.
--- NOTE | 2018-11-27 10:37 | CONS ---
Date/Time of Note Date/Time of Note DATE: 11/27/18 TIME: 10:35 Assessment/Plan Assessment/Plan Hospital Course Alert, feels good, no fevers Microbiology: Blood cultures growing gram-positive cocci in clusters 1 out of 2 sets, repeat blood cultures negative, intraoperative cultures negative==> surgery was done after patient was on antibiotics for 10 days, pathology pending Antimicrobials: Vancomycin and Levaquin Physical examination: Well-nourished well-developed middle-aged man who is awake in no distress. Head atraumatic normocephalic sclera nonicteric. Neck is supple chest rise symmetrical breath sounds clear. Heart: S1-S2. Abdomen soft bowel sounds present. Extremities with right foot deformed and with area of erythema on the medial part. Assessment: 1. Systemic inflammatory response syndrome with fevers and leukocytosis 2. Right foot cellulitis/Charcot/OM, status post I&D 11/24/18 3. Gram-positive cocci bacteremia possibly secondary to #2 4. Diabetes Plan: Remains stable, podiatry recommendations noted, pending discharge on current antibiotics to complete 6 weeks with close monitoring of renal f-n while on Vanco Result Diagram: 11/27/18 0534 11/27/18 0534 Results 24hrs Laboratory Tests Test 11/26/18 12:26 11/26/18 17:39 11/26/18 20:11 11/27/18 03:29 Bedside Glucose 123 165 168 177 Test 11/27/18 05:34 11/27/18 08:00 White Blood 8.3 # Count Red Blood Count 2.88 L Hemoglobin 8.5 L Hematocrit 25.6 L Mean Corpuscular 88.9 Volume Mean Corpuscular 29.5 Hemoglobin Mean Corpuscular 33.2 Hemoglobin Alda nt Red Cell 12.5 Distribution Width Platelet Count 454 H Mean Platelet 8.7 Volume Immature 0.400 Granulocytes % Neutrophils % 80.1 H Lymphocytes % 11.0 L Monocytes % 6.1 Eosinophils % 2.2 Basophils % 0.2 Nucleated Red 0.0 Blood Cells % Immature 0.030 Granulocytes # Neutrophils # 6.6 Lymphocytes # 0.9 Monocytes # 0.5 Eosinophils # 0.2 Basophils # 0.0 Nucleated Red 0.0 Blood Cells # Sodium Level 135 Potassium Level 4.4 Chloride Level 96 L Carbon Dioxide 28 Level Anion Gap 11 Blood Urea 20 Nitrogen Creatinine 1.09 Est Glomerular > 60 Filtrat Rate mL/min Glucose Level 166 Calcium Level 9.2 Phosphorus Level 3.6 Magnesium Level 1.7 Bedside Glucose 185 Consultation Date/Type/Reason Admit Date/Time Nov 15, 2018 at 11:09 Initial Consult Date Type of Consult ID Exam/Review of Systems Vital Signs Vitals Vital Signs Date Temp Pulse Resp B/P (MAP) Pulse Ox O2 O2 Flow FiO2 Time Delivery Rate 11/27/18 98.8 88 18 108/60 90 Room Air 08:00 (76) 11/24/18 2.0 09:21 Intake and Output 11/26/18 11/26/18 11/27/18 1515:00 23:00 07:00 IntakeIntake Total 1330 ml 830 ml 150 ml OutputOutput Total 1250 ml 500 ml BalanceBalance 80 ml 330 ml 150 ml Medications Medications Current Medications Aspirin (Aspirin) 81 mg DAILY PO Last administered on 11/27/18at 08:09; Admin Dose 81 MG; Start 11/15/18 at 09:00 Atorvastatin Calcium (Lipitor) 20 mg QHS PO Last administered on 11/26/18at 21:14; Admin Dose 20 MG; Start 11/14/18 at 21:00 Gabapentin (Neurontin) 100 mg TID PO Last administered on 11/27/18at 08:09; Admin Dose 100 MG; Start 11/14/18 at 21:00 Lisinopril (Zestril) 5 mg DAILY PO Last administered on 11/26/18at 09:17; Admin Dose 5 MG; Start 11/15/18 at 09:00 Tamsulosin HCl (Flomax) 0.4 mg DAILY PO Last administered on 11/27/18at 08:09; Admin Dose 0.4 MG; Start 11/15/18 at 09:00 IV Flush (NS 3 ml) 3 ml PER PROTOCOL IV ; Start 11/14/18 at 18:00 Metoclopramide HCl (Reglan) 10 mg Q6H PRN IV NAUSEA AND/OR VOMITING Last administered on 11/27/18at 00:45; Admin Dose 10 MG; Start 11/14/18 at 18:00 Acetaminophen (Tylenol Tab) 650 mg Q6H PRN PO PAIN LEVEL 1-3 OR FEVER Last administered on 11/26/18at 15:36; Admin Dose 650 MG; Start 11/14/18 at 18:00 Pantoprazole (Protonix Tab) 40 mg DAILY@0600 PO Last administered on 11/27/18at 06:54; Admin Dose 40 MG; Start 11/14/18 at 18:30 Senna (Senokot) 2 tab BID PRN PO CONSTIPATION Last administered on 11/26/18at 15:35; Admin Dose 2 TAB; Start 11/14/18 at 18:30 Diagnostic Test (Pha) (Accu-Chek) 1 ea 02 XX ; Start 11/15/18 at 02:00 Insulin Glargine (Lantus) 21 units DAILY@2000 SC Last administered on 11/26/18at 20:24; Admin Dose 21 UNITS; Start 11/14/18 at 20:00 Insulin Aspart (Novolog Insulin Pen) 7 unit WITH MEALS SC Last administered on 11/27/18at 08:09; Admin Dose 7 UNIT; Start 11/15/18 at 08:00 Miscellaneous Information 1 ea NOTE XX ; Start 11/14/18 at 19:00 Glucose (Glutose) 15 gm Q15M PRN PO DECREASED GLUCOSE; Start 11/14/18 at 19:00 Glucose (Glutose) 22.5 gm Q15M PRN PO DECREASED GLUCOSE; Start 11/14/18 at 19:00 Dextrose (D50w Syringe) 25 ml Q15M PRN IV DECREASED GLUCOSE; Start 11/14/18 at 19:00 Dextrose (D50w Syringe) 50 ml Q15M PRN IV DECREASED GLUCOSE; Start 11/14/18 at 19:00 Glucagon (Glucagen) 1 mg Q15M PRN IM DECREASED GLUCOSE; Start 11/14/18 at 19:00 Glucose (Glutose) 15 gm Q15M PRN BUCCAL DECREASED GLUCOSE; Start 11/14/18 at 19:00 Vancomycin HCl (Vanco Iv Per Pharmacy) VANCOMYCIN PER PHARMACY PER PROTOCOL XX ; Start 11/16/18 at 07:00 Heparin Sodium (Porcine) (Heparin (5000 Units/1ml)) 5,000 unit Q8 SC Last administered on 11/27/18at 06:57; Admin Dose 5,000 UNIT; Start 11/16/18 at 14:0 0 IV Flush (NS 10 ml) 10 ml PRN PRN IV FLUSH LINE; Start 11/19/18 at 16:30 Alteplase, Recombinant (Cathflo (Activase)) 2 mg MAY REPEAT X1 PRN CATHETER IF CATHETER REMAINS OCCULUDED Last administered on 11/22/18at 12:52; Admin Dose 2 MG; Start 11/22/18 at 12:30 Vancomycin HCl 750 mg/Sodium Chloride 150 ml @ 75 mls/hr Q12 IVPB Last administered on 11/27/18at 08:10; Admin Dose 75 MLS/HR; Start 11/23/18 at 21:00 Insulin Aspart (Novolog Insulin Pen) NOVOLOG *MODERATE* ALGORITHM WITH MEALS BEDTIME SC Last administered on 11/27/18at 08:08; Admin Dose 4 UNIT; Start 11/24/18 at 18:00 Levofloxacin (Levaquin) 500 mg DAILY@06 PO Last administered on 11/27/18at 06:54; Admin Dose 500 MG; Start 11/25/18 at 06:00 Miscellaneous Information (*Rx Drug Level Order Reminder*) VANCOMYCIN TROUGH AT 0800 ONCE ONCE XX ; Start 11/28/18 at 08:00; Stop 11/28/18 at 08:01 IRIS SANTIZO NP Nov 27, 2018 10:37
--- NOTE | 2018-11-27 16:34 | NUR ---
Discharge Notes Patient discharged home with home health IV services, per family they have already confirmed. All discharge instructions reviewed and understood, all needs attended to prior to discharge
--- NOTE | 2018-11-27 19:48 | DS ---
Date/Time of Note Date/Time of Note DATE: 11/27/18 TIME: 19:43 Discharge Summary Admission/Discharge Info Admit Date/Time Nov 15, 2018 at 11:09 Discharge Date/Time Nov 27, 2018 at 16:30 Discharge Diagnosis Suspected osteomyelitis of R foot Patient Condition: Good Hx of Present Illness Mr. Loya is a 58 yo man with history of IDDM, stage 2 CKD, peripheral vascular disease status post foot amputations for osteomyelitis as well as severe diabetic retinopathy. He presents with chills, flank pain, and PO intolerance. Symptoms are gradually progressive over the past three weeks. He reports progressive weakness and fatigue; chills constantly throughout the day mixed with intermitted fevers. He has not measured his own temperature. Over the past week he's developed nausea and anorexia. Yesterday he drank some water and immediately vomited it back up. This morning he woke up and had dry heaving. Yesterday he also developed burning pain across his chest. It's not associated with PO intake and doesn't change with exertion. It does not change with position. It's been roughly constant for since yesterday. For the past few days he has lightheadedness when standing and walking. He stopped taking his insulin for 5 days because his blood sugars have been low; and has not had a bowel movement for 5 days. His PMD is Dr. Mayers who he saw recently. She referred him to a gum mixer for his CKD and urology for BPH, he hasn't had these appointments yet. In the ED he presented tachy to 110s, hypotensive to 75/52 and this increased to 136/73 after 1L NS. WBC was 12.4. Cr 2.15 from 1.45. UA was negative for bacteria, nitrates, and leuk esterase. Hospital Course The patient had persistent nightly fevers after admission; although the rest of the above symptoms resolved. Blood cultures on admission grew Corynebacterium and coag negative staph. Peter with ID was concerned about an area of erythema on his Charcot foot as a possible source of infection. XR showed bony destructive progress, so he was taken to OR by Dr. Ta for possible osteomyelitis. A bone biopsy and antibiotic spacer were placed; but wound cultures and bone biopsy were negative for bacteria. Regardless, after surgery his fevers resolved so will plan to treat for 6 weeks with vancomycin and levofloxacin for osteomyelitis. He is going home with home health for IV antibiotics. Home Meds Active Scripts Levofloxacin* (Levaquin*) 500 Mg Tablet, 500 MG PO DAILY@06, #40 TAB Prov:CLOVIS JACKMAN MD 11/26/18 Reported Medications Tamsulosin Hcl* (Tamsulosin Hcl*) 0.4 Mg Cap.er.24h, 0.4 MG PO DAILY, CAP 11/14/18 Atorvastatin Calcium* (Atorvastatin Calcium*) 20 Mg Tablet, 20 MG PO QHS, #30 TAB 11/14/18 Insulin Glargine,Hum.rec.anlog (Basaglar Kwikpen U-100) 100 Unit/1 Ml Insuln.pen, 45 UNIT SC QHS, EA 11/14/18 Metoclopramide Hcl* (Metoclopramide Hcl*) 5 Mg Tablet, 5 MG PO BID PRN for NAUSEA AND OR VOMITING, TAB 11/14/18 [Admelog] No Conflict Check, 15 UNITS SUBCUTANE* AC MEALS 08/06/18 Aspirin* (Aspirin* Chew) 81 Mg Tab.chew, 81 MG PO DAILY, TAB.CHEW 04/16/18 Lisinopril* (Lisinopril*) 5 Mg Tablet, 5 MG PO DAILY, #30 TAB 04/16/18 Gabapentin* (Gabapentin*) 100 Mg Capsule, 100 MG PO TID, #90 CAP 04/16/18 Follow-up Plan 1. Take all medications as prescribed. 2. Keep weight off your R foot. 3. See your primary care doctor as scheduled. 4.See Dr. Keyes or Dr. Ta in clinic next week for wound check and dressing change. 5. You need antibiotics for 6 weeks until Jan 04. You will get IV vancomycin and also oral levofloxacin. Primary Care Provider [facility] Time spent on discharge: > 30 minutes Pending Labs Laboratory Tests Test 11/26/18 20:11 11/27/18 03:29 11/27/18 05:34 11/27/18 08:00 Bedside 168 177 185 Glucose mg/dL (70-220) mg/dL (70-220) mg/dL (70-220) White Blood 8.3 Count 10^3/ul (4.8-1 0.8) Red Blood 2.88 Count 10^6/ul (4.70- 6.10) Hemoglobin 8.5 g/dl (14.0-18. 0) Hematocrit 25.6 % (42.0-52.0) Mean 88.9 Corpuscular fl (82.0-101.0 Volume ) Mean 29.5 Corpuscular pg (29.0-33.0) Hemoglobin Mean 33.2 Corpuscular g/dl (32.0-37. Hemoglobin Conc 0) ent Red Cell 12.5 Distribution % (11.5-14.5) Width Platelet Count 454 10^3/UL (140-4 15) Mean Platelet 8.7 Volume fl (7.4-10.4) Immature 0.400 Granulocytes % % (0.001-0.429 ) Neutrophils % 80.1 % (39.0-77.0) Lymphocytes % 11.0 % (15.0-51.0) Monocytes % 6.1 % (0.0-11.0) Eosinophils % 2.2 % (0.0-7.0) Basophils % 0.2 % (0.0-2.0) Nucleated Red 0.0 Blood Cells % /100WBC (0.0-0 .0) Immature 0.030 Granulocytes # 10^3/ul (0.0-0 .031) Neutrophils # 6.6 10^3/ul (1.6-7 .5) Lymphocytes # 0.9 10^3/ul (0.8-2 .9) Monocytes # 0.5 10^3/ul (0.3-0 .9) Eosinophils # 0.2 10^3/ul (0.0-0 .5) Basophils # 0.0 10^3/ul (0.0-0 .1) Nucleated Red 0.0 Blood Cells # 10^3/ul (0.0-0 .0) Sodium Level 135 mmol/L (135-14 4) Potassium 4.4 Level mmol/L (3.5-5. 1) Chloride Level 96 mmol/L (97-110 ) Carbon Dioxide 28 Level mmol/L (21-31) Anion Gap 11 (5-13) Blood Urea 20 Nitrogen mg/dl (7-20) Creatinine 1.09 mg/dl (0.61-1. 24) Est Glomerular > 60 Filtrat mL/min (>60) Rate mL/min Glucose Level 166 mg/dl (70-220) Calcium Level 9.2 mg/dl (8.4-10. 2) Phosphorus 3.6 Level mg/dl (2.5-4.9 ) Magnesium 1.7 Level mg/dl (1.7-2.5 ) Test 11/27/18 12:13 Bedside 124 Glucose mg/dL (70-220) CLOVIS JACKMAN MD Nov 27, 2018 19:48
[2018-11-28] MEDS ORDERED: VANCOMYCIN 750 MG (PMX) 250 ML IVPB SCH (09:00)
== END 2018-11-27 16:30 | disposition home health service (06) | DRG 854 ==
LOC: E/R 13:20 → 2NE 17:05 → OBSVTOIN 11-15 11:09
PROVIDERS: ADMIT Internal Medicine; ATTEND Internal Medicine
PROC: 02H633Z Insertion of Infusion Device into Right Atrium, Percutaneous Approach (ICD-10-PCS; 2018-11-19)
PROC: 30233N1 Transfusion of Nonautologous Red Blood Cells into Peripheral Vein, Percutaneous Approach (ICD-10-PCS; 2018-11-22)
PROC: 0SHM08Z Insertion of Spacer into Right Metatarsal-Phalangeal Joint, Open Approach (ICD-10-PCS; 2018-11-24)
PROC: 0QTL0ZZ Resection of Right Tarsal, Open Approach (ICD-10-PCS; principal; 2018-11-24 07:30)
DX: A41.9 Sepsis, unspecified organism (principal); L03.115 Cellulitis of right lower limb; N17.9 Acute kidney failure, unspecified; M86.8X7 Other osteomyelitis, ankle and foot; I12.9 Hypertensive chronic kidney disease with stage 1 through stage 4 chronic kidney disease, or unspecified chronic kidney disease; N18.9 Chronic kidney disease, unspecified; E11.610 Type 2 diabetes mellitus with diabetic neuropathic arthropathy; E11.51 Type 2 diabetes mellitus with diabetic peripheral angiopathy without gangrene; Z79.4 Long term (current) use of insulin; E11.319 Type 2 diabetes mellitus with unspecified diabetic retinopathy without macular edema; Q66.89 Other specified congenital deformities of feet; E11.69 Type 2 diabetes mellitus with other specified complication; N20.0 Calculus of kidney; E86.0 Dehydration
CPT/HCPCS: 36415; 36430; 36569; 71045; 73630; 73718; 73721; 76775; 76937; 80048; 80053; 80202; 81001; 82728; 82962; 83036; 83540; 83605; 83690; 83735; 84100; 84439; 84443; 84484; 85025; 85610; 85730; 86850; 86900; 86901; 86920; 87040; 87070; 87075; 87086; 87102; 87400; 88304; 88311; 93005; 93306; 93922; 96374; 97110; 97116; 97161; 97164; 97530; C1713; C1769; G0378; J0690; J1100; J1644; J1815; J1956; J2250; J2405; J2710; J2765; J2997; J3010; J3370; J3475; J7030; J7040; J7042; J7050; P9016

== ENCOUNTER 2019-01-29 13:14 | Day surgery (SDC) | payer OTHER ==
[~2019-01-29] VITALS: Ht 180.3 cm; Wt 80.3 kg
[2019-01-29] VITALS (15 sets, daily range): BP systolic 97–142; BP diastolic 61–83; PULSE 68–85; RESP 12–28; Ht 180.3 cm; Wt 80.3 kg
[~2019-01-29 13:14] MED LIST changes: -ATOR10TA65 PO; +ATOR20TA38 PO; -CIPR500T4 PO; -DOCU-144 PO; +INSU100I33 SC; +LEVO500T48 PO; -METO10TA92 PO; +METO5TAB2 PO; -MTF1000T PO; +TAMS0.4C2 PO
[2019-01-29] MEDS ORDERED: TAMS0.4C2 PO (13:42)
[2019-01-29] MEDS ORDERED: METF100010 PO (13:45)
[2019-01-29] MEDS ORDERED: HEPARIN 1000 UNITS/NS (A-LINE) 1,000 ML ONE (15:09)
[2019-01-29] MEDS ORDERED: IODIXANOL LOCM 100 ML BTL ONE (15:09)
[2019-01-29] MEDS ORDERED: LIDOCAINE 1% (MDV) 20 ML INJ ONE (15:09)
[2019-01-29] MEDS ORDERED: HEPARIN 1000 UNITS/ML 10 ML INJ ONE (15:09)
[2019-01-29] MEDS ORDERED: MIDAZOLAM 1 MG/ML 2 ML INJ ONE (15:54)
[2019-01-29] MEDS ORDERED: FENTAnyl 50 MCG/ML VIAL ONE (15:57)
--- NOTE | 2019-01-29 16:42 | SIPON ---
Date/Time of Note Date/Time of Note DATE: 01/29/19 TIME: 16:41 Operative Report Preoperative Diagnosis R Charcot foot Postoperative Diagnosis same Operation/Procedure Performed aortogram, RLE angiogram, STONER HAND / atherectomy R anterior tibial artery Surgeon see signature line administrative personal assistant none Anesthesia: moderate sedation Estimated blood loss: minimal Transfusion Required none Specimen none Grafts/Implants none Complications none CLOVIS LARRY MD Jan 29, 2019 16:42
[2019-01-29] MEDS ORDERED: CLOPIDOGREL 300 MG TAB PO ONE (17:00)
[2019-01-29] MEDS ORDERED: CLOPIDOGREL 300 MG TAB ONE (17:07)
--- NOTE | 2019-01-29 19:04 | SP ---
DATE OF PROCEDURE: 01/29/2019 PREOPERATIVE DIAGNOSIS: Right Charcot foot, preoperative for reconstructive surgery. POSTOPERATIVE DIAGNOSIS: Right Charcot foot, preoperative for reconstructive surgery. PROCEDURE PERFORMED: 1. Abdominal aortogram, right lower extremity runoff. 2. Percutaneous atherectomy and angioplasty of severe stenosis of proximal and distal right anterior tibial artery. SURGEON: Cloivs Kim MD ANESTHESIA: Local with sedation. ESTIMATED BLOOD LOSS: Minimal. COMPLICATIONS: There were no intraprocedural complications. INDICATIONS: This is a 58-year-old diabetic, hypertensive gentleman with a Charcot deformity of the right foot. He is preoperative for an extensive reconstruction of the ankle. He had arterial studies which were abnormal and no palpable pedal pulses. I had brought him in today for an angiogram and intervention prior to his reconstructive ankle surgery. DESCRIPTION OF PROCEDURE: The patient was brought to the bobcat driver/labor and placed on the table in the supine position. The left groin was prepped and draped in the usual sterile fashion. I began by infiltrating of the left common femoral artery using about 10 mL of 1% Xylocaine. I used a micropuncture needle to enter the left common femoral artery under ultrasound guidance. An 0.018 wire was inserted through the needle into the artery. A micropuncture sheath was advanced over the wire into the artery. I then advanced an 0.035 Bentson wire up into the abdominal aorta, exchanged the micropuncture sheath for a 5-Maltese sheath over the wire, and advanced a RIM catheter into the infrarenal aorta and did an aortogram. I used the Bentson wire and the RIM catheter to go up and over the bifurcation and advanced the catheter into the right SFA and did runoff down the right lower extremity. FINDINGS OF ANGIOGRAPHY: The infrarenal aorta, common external and internal iliac arteries bilaterally are widely patent. Both common, superficial and profunda femoral arteries are widely patent. On the right, the entire SFA is patent with no disease. It is calcified but not diseased. Popliteal artery on the right is widely patent. Below the knee, the posterior tibial artery is occluded. Peroneal artery is patent down to the ankle and reconstitutes posterior tibial artery in the foot. The anterior tibial artery has 2 focal areas of greater than 75% stenosis, one in the proximal segment and one in the distal segment. The dorsalis pedis artery is widely patent in the foot. I decided to treat the anterior tibial artery to provide some flow to the ankle and foot. I then gave the patient 5000 units of heparin intravenously. I then used a 0.035 Advantage wire which I advanced into the right popliteal artery. I exchanged the 5-Maltese sheath for a 6-Maltese [place] [employer]ination 70 cm long sheath which I left in the right popliteal artery. I then used a 0.035 Quick- Cross catheter to engage the anterior tibial artery. I then advanced the Advantage wire and the Quick-Cross catheter all the way down into the distal anterior tibial past the areas of stenosis. I then exchanged for a 0.014 BMW wire through the catheter. I then removed the catheter and then treated the 2 areas of stenosis in the anterior tibial artery first with a 1.8 mm Start mechanical atherectomy device. I made multiple passes through both areas and then angioplastied the entire anterior tibial artery from the ankle to its origin with a 3 mm x 20 cm balloon to 14 atmospheres. There was no residual stenosis throughout the anterior tibial artery. Prior to the angioplasty, the flow to the foot was mainly through the peroneal, and then very late filling of the dorsalis pedis through the anterior tibial was seen. After the angioplasty, flow was directly down into the foot through the anterior tibial into the dorsalis pedis, and then there was much later filling of the peroneal. It was an excellent result. I was happy with the result. All the catheter sheaths and wires were removed, and the 6-Maltese Angio-Seal device was used to close the puncture site in the left groin with good hemostasis. He tolerated the procedure well without any complications. He was transferred to the recovery room in stable condition. Dictated By: CLOVIS MCCAULEY/OVIDIO Conf#: [id number] DID#: [id number] CC: LITZY SINGH DPM; ML ROSALES DPM;*UmaCC* MTDAmy
== END 2019-01-29 19:15 | disposition home or self-care (01) ==
LOC: SDS 13:14 → CCL 13:14
PROVIDERS: ATTEND Surgery Vascular Surgery
DX: E11.610 Type 2 diabetes mellitus with diabetic neuropathic arthropathy (principal); I73.9 Peripheral vascular disease, unspecified; I10 Essential (primary) hypertension
CPT/HCPCS: 37229; 75630; 80048; 82962; 85025; 85610; 85730; C1725; C1760; C1769; C1887; C1894; J1644; J2250; J3010; Q9967; Z7610

== ENCOUNTER 2019-02-06 14:06 | Inpatient (IN) | payer OTHER ==
[2019-02-06] VITALS (18 sets, daily range): BP systolic 105–134; BP diastolic 61–88; PULSE 76–95; RESP 13–21; Ht 180.3 cm; Wt 80.4 kg
[~2019-02-06] VITALS: Ht 180.3 cm; Wt 80.4 kg
[~2019-02-06 14:06] MED LIST changes: +CEFAZOLIN 2 GM/50 ML (PMX) 50 ML IVPB SCH; -LEVO500T48 PO; -LISI-313 PO; +METF100010 PO
--- NOTE | 2019-02-06 17:13 | PREAC ---
Date/Time of Note Date/Time of Note DATE: 02/06/19 TIME: 17:11 Anesthesia Eval and Record Evaluation Time Pre-Procedure Interview DATE: 02/06/19 TIME: 17:11 Age 58 Sex male NPO: 8 hrs Preoperative diagnosis right charcot foot Planned procedure right midfoot fusion, application of external fixation, removal of antibiotic spacer, correction of hammertoes, possible tendon achilles lengthening, possible partial digit amputation Past Medical History Past Medical History: Includes Cardio: Dyslipidemia Endo: Diabetes Renal: BPH Surgery & Anesthesia Issues No known issue Meds Anticoagulation: No Beta Cyndi within 24 hr: No Reason Beta Cyndi not given: Pt. not on B-Cyndi Reported Medications Metformin Hcl* (Metformin Hcl*) 1,000 Mg Tablet, 1000 MG PO WITH BREAKFAST DINNE, #60 TAB 01/29/19 Tamsulosin Hcl* (Tamsulosin Hcl*) 0.4 Mg Cap.er.24h, 0.4 MG PO DAILY, CAP 11/14/18 Atorvastatin Calcium* (Atorvastatin Calcium*) 20 Mg Tablet, 20 MG PO QHS, #30 TAB 11/14/18 Insulin Glargine,Hum.rec.anlog (Basaglar Kwikpen U-100) 100 Unit/1 Ml Insuln.pen, 45 UNIT SC QHS, EA 11/14/18 Metoclopramide Hcl* (Metoclopramide Hcl*) 5 Mg Tablet, 5 MG PO BID PRN for NAUSEA AND OR VOMITING, TAB 11/14/18 [Admelog] No Conflict Check, 15 UNITS SUBCUTANE* AC MEALS 08/06/18 Aspirin* (Aspirin* Chew) 81 Mg Tab.chew, 81 MG PO DAILY, TAB.CHEW 04/16/18 Gabapentin* (Gabapentin*) 100 Mg Capsule, 100 MG PO TID, #90 CAP 04/16/18 Meds reviewed: Yes Allergies Coded Allergies: No Known Allergy (Unverified , 01/29/19) Allergies Reviewed: Yes Labs/Studies Labs Reviewed: Reviewed by anesthesiologist test: N/A Studies: ECG (nsr, LAD), CXR Pre-procedure Exam Last vitals Vital Signs Date Temp Pulse Resp B/P (MAP) Pulse Ox O2 O2 Flow FiO2 Time Delivery Rate 02/06/19 98.1 95 16 121/72 98 Room Air 16:16 (88) Airway: Adequate mouth opening, Adequate thyromental dist Mallampati: Mallampati II Teeth: Normal Lung: Normal Heart: Normal ASA Physical Status ASA physical status: 3 Emergency: None Planned Anesthetic General/MAC: LMA Nerve block: Sciatic (right) Planned Pain Management Single shot nerve block, Parenteral pain med Pre-operative Attestations Prior to commencing anesthesia and surgery, the patient was re-evaluated, there was verification of: *The patient's identity *The results of appropriate recent lab work and preoperative vital signs *The above evaluation not changing prior to induction *Anesthetic plan, risk benefits, alternative and complications discussed with patient/family; questions answered; patient/family understands, accepts and wishes to proceed. TESHA SELLERS MD Feb 06, 2019 17:13
[2019-02-06] MEDS ORDERED: LIDOCAINE 2% (SDV) 5 ML INJ ONE (18:16)
[2019-02-06] MEDS ORDERED: PROPOFOL 20 ML ONE (18:16)
[2019-02-06] MEDS ORDERED: MIDAZOLAM 1 MG/ML 2 ML INJ ONE (18:17)
[2019-02-06] MEDS ORDERED: FENTAnyl 50 MCG/ML VIAL ONE (18:17)
[2019-02-06] MEDS ORDERED: ROPIVACAINE 0.5 % 30 ML VIAL ONE (18:19)
[2019-02-06] MEDS ORDERED: DIPHENHYDRAMINE 50 MG INJ IV PRN (18:30)
[2019-02-06] MEDS ORDERED: FENTAnyl 50 MCG/ML VIAL IV PRN ×2 (18:30)
[2019-02-06] MEDS ORDERED: EPHEDrine SULFATE 50 MG/5 ML SYG IV PRN (18:30)
[2019-02-06] MEDS ORDERED: OXYCODONE/ACETAMINOPHEN (5/325) TAB PO PRN (18:30)
[2019-02-06] MEDS ORDERED: HYDROmorphONE 1 MG/5 ML IV SYRINGE IV PRN ×2 (18:30)
[2019-02-06] MEDS ORDERED: PROCHLORPERAZINE 10 MG INJ IV PRN (18:30)
[2019-02-06] MEDS ORDERED: hydrALAzine 20 MG INJ IV PRN (18:30)
[2019-02-06] MEDS ORDERED: LABETALOL HCL 20MG INJ IV PRN (18:30)
[2019-02-06] MEDS ORDERED: ONDANSETRON 4 MG INJ IV PRN ×2 (18:30→22:30)
[2019-02-06] MEDS ORDERED: MEPERIDINE 25 MG INJ IV PRN (18:30)
[2019-02-06] MEDS ORDERED: CEFAZOLIN 1 GM INJ ONE (18:35)
[2019-02-06] MEDS ORDERED: PHENYLephrine (100 MCG/ML) 5ML SYG ONE ×2 (18:37→22:01)
[2019-02-06] MEDS ORDERED: ONDANSETRON 4 MG INJ ONE (18:50)
[2019-02-06] MEDS ORDERED: FAMOTIDINE 20 MG INJ ONE (18:50)
[2019-02-06] MEDS ORDERED: POLYMYXIN/BACITRACIN 1L IRRIG IRR ONE (19:06)
[2019-02-06] MEDS ORDERED: SOD CHLORIDE 0.9% 1,000 ML IV SCH (22:17)
--- NOTE | 2019-02-06 22:20 | PAC ---
Date/Time of Note Date/Time of Note DATE: 02/06/19 TIME: 22:20 Post-Anesthesia Notes Post-Anesthesia Note Last documented vital signs Vital Signs Date Temp Pulse Resp B/P (MAP) Pulse Ox O2 O2 Flow FiO2 Time Delivery Rate 02/06/19 98.1 95 16 121/72 98 Room Air 16:16 (88) Activity: WNL Respiratory function: WNL Cardiovascular function: WNL Mental status: Baseline Pain reasonably controlled: Yes Hydration appropriate: Yes Nausea/Vomiting absent: Yes Comments BP: 105/64 HR: 82 RR: 15 T: 99.2 SaO2: 100% TESHA SELLERS MD Feb 06, 2019 22:20
--- NOTE | 2019-02-06 22:22 | HPN ---
Date/Time of Note Date/Time of Note DATE: 02/06/19 TIME: 22:22 Interval H&P Admission Note Pt. seen H&P reviewed: No system changes ML ROSALES DPM Feb 06, 2019 22:22
[2019-02-06] MEDS ORDERED: NACL 0.9% 3 ML SYG IV SCH (22:30)
--- NOTE | 2019-02-06 22:36 | OPR ---
Date/Time of Note Date/Time of Note DATE: 02/06/19 TIME: 22:36 Operative Report Preoperative Diagnosis Right lower extremity charcot neuropathy Right foot hammertoes DM2 with peripheral neuropathy Postoperative Diagnosis Right lower extremity charcot neuropathy Right foot hammertoes DM2 with peripheral neuropathy Operation/Procedure Performed Right midfoot arthrodesis Flexor tenotomy of digits 2-4 R foot Autograft bone harvest Right 3rd digit PIPJ arthroplasty Application of Ilizarov external fixator Surgeon Robert Rosales DPM Hand Upper And Bottom Lacer David Keyes DPM Anesthesia Type: general Estimated Blood Loss: 10 - 50 ml's Transfusion none Specimen none Grafts/Implants Right foot autogenous bone graft Cerament bone cement Complications none Indications 58 y/o diabetic male patient with charcot neuropathy and hammertoe deformities was seen in the past for charcot destruction and possible concern for osteomyelitis. Patient had medial cuneiform removed and was placed with an abx spacer and casting. Cultures and pathology were negative for osteomyelitis and infection. Patient is amenable to surgical reconstruction of his charcot foot of the right lower extremity. Patient's questions and concerns were addressed. No promises or guarantees were given. Procedure Description Patient was brought into the OR and placed on the OR table in the supine position. A pre-operative popliteal block was provided by the anesthesia team. The right lower extremity was scrubbed, prepped, and draped in the usual aseptic manner. Attention was directed to the medial aspect of the foot where dissection was done to expose the previous antibiotic spacer which was removed. Inspection of the joint site revealed no purulence, no further cortical disruption suggesting latent infection. The joint surfaces were prepared and fenestrated for the arthrodesis site. An autograft was harvested from the 2nd digit proximal phalanx which was placed into the midfoot site and fixated with k-wires. X-ray confirmed satisfactory alignment in multiple planes. Cerament bone cement was placed to fill in the void. Layered closure with 3-0 vicryl and 3-0 prolene closed to the medial foot incision site. Attention directed to the digits 2-4 where flexor tenotomies were performed and provided adequate release of the hammer toe deformities. 3rd digit underwent a joint arthroplasty of the PIPJ, where the head of the proximal phalanx was removed. The extensor tendons were reapproximated with 4-0 vicryl and skin was sutured with 4-0 prolene. The tenotomy sites were sutured with 4-0 prolene. Next an ilizarov external fixator was applied with two sets of tibial block ring pins, calcaneal pins, and forefoot pins. Each pins were appropriately tightened and tensioned. Rectus alignment was appreciated of the right lower extremity with respect to the ring and silver dressings applied to pin sites. A U-foot plate was applied to the bottom of the external fixator. Xeroform to the incisi on and sites with dry sterile dressings. Patient was transferred to the PACU with vital signs stable and neurovascular status intact. ORBERT ROSALES DPM Feb 06, 2019 22:36
--- NOTE | 2019-02-06 22:36 | SIPON ---
Date/Time of Note Date/Time of Note DATE: 02/06/19 TIME: 22:22 Operative Report Preoperative Diagnosis Right lower extremity charcot neuropathy Right foot hammertoes DM2 with peripheral neuropathy Postoperative Diagnosis Right lower extremity charcot neuropathy Right foot hammertoes DM2 with peripheral neuropathy Operation/Procedure Performed Right midfoot arthrodesis Flexor tenotomy of digits 2-4 R foot Autograft bone harvest Right 3rd digit PIPJ arthroplasty Application of Ilizarov external fixator Surgeon Robert Rosales DPM child and youth program assistant David Keyes DPM Anesthesia: general Estimated blood loss: 10 - 50 ml's Transfusion Required none Specimen none Grafts/Implants Right foot autogenous bone graft Cerament bone cement Complications none ROBERT ROSALES DPM Feb 06, 2019 22:33
[2019-02-06] MEDS: HYDROmorphONE 1 MG/5 ML IV SYRINGE IV PRN ×2 (22:52→23:04)
[2019-02-06] MEDS: FENTAnyl 50 MCG/ML VIAL IV PRN ×2 (22:54→23:06)
--- NOTE | 2019-02-06 23:22 | HP ---
Date/Time of Note Date/Time of Note DATE: 02/06/19 TIME: 23:22 Assessment/Plan VTE Prophylaxis Pharmacological prophylaxis: other (Aspirin) Pharm contraindication: surgical contra, other Assessment/Plan Hospital Course This is a 58-year-old male being admitted to the [facility] floor for: #1Right lower extremity Charcot neuropathy: Status post right midfoot arthrodesis, right third digit PIPJ arthroplasty, patient is currently doing we ll postop. We will resume patient on diabetic diet. Continue pain medication as per podiatry. Further management as per podiatry. Aspirin for DVT prophylaxis as per podiatry he is nonweightbearing to the right foot. #2 type 2 diabetes: With peripheral neuropathy and diabetic retinopathy with le ft eye blindness. Will check hemoglobin A1c, resume patient's home insulin regimen. We will check urine microalbumin. Metformin at the current time, continue gabapentin. #3 hyperlipidemia: Continue statin #4 DVT GI prophylaxis: Aspirin, no GI prophylaxis indicated Further treatment strategy will be implemented as per the clinical course. Result Diagram: 02/06/19224402/06/195 Results 24hrs Laboratory Tests Test 02/06/19 14:59 02/06/19 22:16 02/06/19 22:45 Bedside Glucose 112 85 White Blood Count 6.8 # Red Blood Count 3.57 L Hemoglobin 11.0 L Hematocrit 31.4 L Mean Corpuscular Volume 88.0 Mean Corpuscular Hemoglobin 30.8 Mean Corpuscular Hemoglobin Concent 35.0 Red Cell Distribution Width 13.6 Platelet Count 209 Mean Platelet Volume 8.8 Immature Granulocytes % 0.400 Neutrophils % 81.0 H Lymphocytes % 12.6 L Monocytes % 5.6 Eosinophils % 0.1 Basophils % 0.3 Nucleated Red Blood Cells % 0.0 Immature Granulocytes # 0.030 Neutrophils # 5.5 Lymphocytes # 0.9 Monocytes # 0.4 Eosinophils # 0.0 Basophils # 0.0 Nucleated Red Blood Cells # 0.0 Sodium Level 137 Potassium Level 5.2 H Chloride Level 101 Carbon Dioxide Level 24 Anion Gap 12 Blood Urea Nitrogen 23 H Creatinine 1.23 Est Glomerular Filtrat Rate mL/min > 60 Glucose Level 87 Calcium Level 8.9 Total Bilirubin 0.6 Direct Bilirubin 0.00 Indirect Bilirubin 0.6 Aspartate Amino Transf (AST/SGOT) 20 Alanine Aminotransferase (ALT/SGPT) 24 Alkaline Phosphatase 55 Total Protein 7.3 Albumin 4.0 Globulin 3.30 H Albumin/Globulin Ratio 1.21 HPI/ROS Admit Date/Time Admit Date/Time Feb 06, 2019 at 14:26 Hx of Present Illness Chief complaint: Right Charcot foot Patient was seen and examined postoperatively. This is a 58-year-old male who was brought in for elective procedure of his right Charcot foot. Patient is postop day 0 status post right Charcot foot surgery. Patient had been dealing with right foot pain for a few months a ccording to him. He had a right midfoot arthrodesis along with a right third digit PIPJ arthroplasty please see operative report for full surgery details for his right lower extremity Charcot neuropathy and right foot hammertoes. Patient does have a history of type 2 diabetes with peripheral neuropathy. He at the current time is doing well postsurgery. Patient is also blind from the left eye secondary to diabetic retinopathy Allergies: NKDA Medications: See Jan Const: As per HPI Eyes : No pain discharge or redness or change in visual acuity ENT: No pain, sore throat, congestion, congestion, dysphagia or discharge Respiratory: No shortness of breath, cough, sputum, wheezing, or pleuritic pain Cardiovascular: No chest pain, palpitation, PND, or edema GI : no change in appetite, abdominal pain, nausea, vomiting, diarrhea, constip ation, or change in the color his stool Genitourinary: No dysuria, hematuria, flank pain , discharge or CVA tenderness Musculoskeletal: As per HPI Skin: No rash, bruising or hives Neuro: No headache, dizziness, syncope, seizure, focal weakness Endocrine: No polyuria, polydipsia, temperature intolerance Psych: No hallucination, depression, anxiety or suicidal ideation PMH/Family/Social Past Medical History Right lower extremity Charcot neuropathy status post right midfoot arthrodesis, right third digit PIPJ arthroplasty, type II diabetic with peripheral ne uropathy, left eye blindness secondary to diabetic retinopathy Medications Current Medications Hydromorphone HCl (Dilaudid) 0.2 mg PACU PRN IV MILD PAIN 1-3 Last administered on 02/06/19at 23:10; Admin Dose 0.2 MG; Start 02/06/19 at 18:30; Stop 02/06/19 at 23:30 Hydromorphone HCl (Dilaudid) 0.4 mg PACU PRN IV MOD PAIN 4-6 Last administered on 02/06/19at 23:04; Admin Dose 0.4 MG; Start 02/06/19 at 18:30; Stop 02/06/19 at 23:30 Hydromorphone HCl (Dilaudid) 0.6 mg PACU PRN IV SEVERE PAIN 7-10; Start 02/06/19 at 18:30; Stop 02/06/19 at 23:30 Fentanyl (Sublimaze) 25 mcg PACU ORDER PRN IV MILD PAIN 1-3; Start 02/06/19 at 18:30; Stop 02/06/19 at 23:30 Fentanyl (Sublimaze) 50 mcg PACU ORDER PRN IV MOD PAIN 4-6 Last administered on 02/06/19at 23:06; Admin Dose 50 MCG; Start 02/06/19 at 18:30; Stop 02/06/19 at 23:30 Fentanyl (Sublimaze) 75 mcg PACU ORDER PRN IV SEVERE PAIN 7-10; Start 02/06/19 at 18:30; Stop 02/06/19 at 23:30 Oxycodone/ Acetaminophen (Percocet (5/ 325)) 1 tab PACU ORDER PRN PO .PAIN 1-5; Start 02/06/19 at 18:30; Stop 02/06/19 at 23:30 Ondansetron HCl (Zofran Inj) 4 mg PACU ORDER PRN IV NAUSEA/VOMITING; Start 02/06/19 at 18:30; Stop 02/06/19 at 23:30 Prochlorperazine (Compazine Inj) 5 mg PACU ORDER PRN IV NAUSEA/VOMITING; Start 02/06/19 at 18:30; Stop 02/06/19 at 23:30 Labetalol HCl (Labetalol) 5 mg PACU ORDER PRN IV HIGH BLOOD PRESSURE; Start 02/06/19 at 18:30; Stop 02/06/19 at 23:30 Hydralazine HCl (Apresoline) 5 mg PACU ORDER PRN IV HIGH BLOOD PRESSURE; Start 02/06/19 at 18:30; Stop 02/06/19 at 23:30 Ephedrine Sulfate 5 mg PACU ORDER PRN IV BLOOD PRESSURE SUPPORT; Start 02/06/19 at 18:30; Stop 02/06/19 at 23:30 Meperidine HCl (Demerol) 25 mg PACU ORDER PRN IV .RIGORS; Start 02/06/19 at 18:30; Stop 02/06/19 at 23:30 Diphenhydramine HCl (Benadryl) 25 mg PACU ORDER PRN IV .PRURITUS; Start 02/06/19 at 18:30; Stop 02/06/19 at 23:30 Atorvastatin Calcium (Lipitor) 20 mg QHS PO ; Start 02/07/19 at 21:00 Gabapentin (Neurontin) 100 mg TID PO ; Start 02/07/19 at 09:00 Insulin Glargine (Lantus) 45 unit QHS SC ; Start 02/07/19 at 21:00; Status UNV Sodium Chloride 1,000 ml @ 80 mls/hr [id number] IV ; Start 02/06/19 at 22:17; Stop 02/07/19 at 10:46 IV Flush (NS 3 ml) 3 ml PER PROTOCOL IV ; Start 02/06/19 at 22:30 Ondansetron HCl (Zofran Inj) 4 mg Q6H PRN IV NAUSEA/VOMITING; Start 02/06/19 at 22:30 Acetaminophen (Tylenol Tab) 650 mg Q6H PRN PO .PAIN 1-3 OR TEMP; Start 02/06/19 at 22:30 Acetaminophen/ Hydrocodone Bitart ([place] (5/325)) 1 tab Q6H PRN PO .MOD PAIN 4- 6; Start 02/06/19 at 22:30 Morphine Sulfate (morphine) 2 mg Q4H PRN IV .SEVERE PAIN 7-10; Start 02/06/19 at 22:30 Docusate Sodium (Colace) 100 mg Q12H PRN PO .CONSTIPATION; Start 02/06/19 at 22:30 Bisacodyl (Dulcolax) 5 mg DAILY PRN PO .CONSTIPATION; Start 02/06/19 at 22:30 Coded Allergies: No Known Allergy (Unverified , 01/29/19) Past Surgical History 02/06/2019 right midfoot arthrodesis Flexor tenotomy of digits 2-4 R foot Autograft bone harvest Right 3rd digit PIPJ arthroplasty Application of Ilizarov external fixator Left foot TMA Left eye surgery Family History Significant Family History: heart disease, diabetes Social History Smoking Status: Former smoker Exam/Review of Systems Vital Signs Vitals Vital Signs Date Temp Pulse Resp B/P (MAP) Pulse Ox O2 O2 Flow FiO2 Time Delivery Rate 02/06/19 99.2 22:21 02/06/19 95 16 121/72 98 Room Air 16:16 (88) Exam Exam General: Patient currently lying in bed in no acute distress HEENT: Atraumatic, normocephalic. The pupils are equal, round and reactive. Extraocular motor are intact Neck: Supple with full range of motion. No rigidity or meningismus Chest: Nontender Lungs: Clear to auscultation bilaterally no crackles rales or wheezing Heart: Normal S1-S2, Regular rhythm and rate. No murmur, S3, or S4 Abdomen: Soft , nontender, nondistended , bowel sounds are present. No guarding no rebound tenderness , No masses or organomegaly. No costovertebral temporal angle mass Extremities: Right lower extremity currently in postoperative brace and screws, left foot TMA Neurologic: Normal mental status, speech normal, cranial nerves II through XII are intact, motor and sensory are intact, did not assess gait secondary to patient pain postop VISHNU FERREIRA Feb 06, 2019 23:22
[2019-02-07] VITALS (8 sets, daily range): BP systolic 107–158; BP diastolic 64–87; PULSE 60–107; RESP 16–20
[2019-02-07] MEDS ORDERED: GLUCAGON 1 MG INJ IM PRN (05:00)
[2019-02-07] MEDS ORDERED: DEXTROSE 50% 50 ML SYRINGE IV PRN ×2 (05:00)
[2019-02-07] MEDS ORDERED: GLUCOSE GEL 15 GRAM TUBE PO PRN ×2 (05:00)
[2019-02-07] MEDS ORDERED: GLUCOSE GEL 15 GRAM TUBE BUCCAL PRN (05:00)
[2019-02-07] MEDS: morphine 2 MG INJ IV PRN ×2 (07:28→21:53)
[2019-02-07] MEDS: ASPIRIN 81 MG TAB PO SCH (08:43)
[2019-02-07] MEDS: GABAPENTIN 100 MG CAP PO SCH ×3 (08:43→20:07)
[2019-02-07] MEDS: INSULIN ASPART [NOVOLOG] 3 ML PEN SC SCH ×4 (08:49→21:49)
[2019-02-07] MEDS: HYDROCODONE/APAP (5/325) TAB PO PRN (12:51)
[2019-02-07] MEDS ORDERED: MAGNESIUM SULFATE 3 GM in DEXTROSE 5% 100 ML IVPB ONE (16:30)
--- NOTE | 2019-02-07 16:56 | PN ---
Date/Time of Note Date/Time of Note DATE: 02/07/19 TIME: 16:55 Assessment/Plan VTE Prophylaxis Risk score (from Nsg)>0 risk: 3 SCD applied (from Nsg): No SCD contraindicated: other Pharmacological prophylaxis: LMWH Lines/Catheters IV Catheter Type (from Nrsg): Peripheral IV Urinary Cath still in place: No Assessment/Plan Hospital Course SUBJECTIVE: Right lower extremity pain well controlled OBJECTIVE: Physical Exam General: Adequately build 58 year-old male lying in bed in no apparent distress. HEENT: Normocephalic, atraumatic. Eyes: Anicteric sclerae, conjunctivae clear. ENT: Nasal septum midline, oral mucosa moist. Neck supple, no JVD noticed. Respiratory: Bilaterally clear breath sounds. No use of accessory muscles of respiration. No adventitious breath sounds. Cardiovascular: S1, S2 heard. Regular rate and rhythm. Abdomen: Soft, nontender, and nondistended. Bowel sounds positive in all 4 quadrants. Genitourinary: Deferred. Extremities: No cyanosis, no clubbing, no edema. Right lower extremity surgical dressing. Left lower extremity status post transmetatarsal amputation. Neurologic: Cranial nerves II through XII grossly intact. The patient is awake, alert, and oriented. Skin: Normal skin turgor. No skin rashes. 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 The patient was brought in to [facility] for elective surgery for a right lower extremity Charcot foot neuropathy with right foot hammertoes. The patient underwent right midfoot arthrodesis, flexor tenotomy of digits 2-4, autograft bone harvest, and right third digit PIPJ arthroplasty. The patient was admitted to inpatient setting for further monitoring. 1. Right lower extremity Charcot neuropathy, right foot hammertoes. -Status post right midfoot arthrodesis, flexor tenotomy of digits 2-4, autograft bone harvest, right third digit PIPJ arthroplasty, and application of Ilizarov external fixator. -Nonweightbearing of right lower extremity-continue pain control. 2. Diabetes mellitus type 2. -Hemoglobin A1c 6.9. -Continue sliding scale insulin along with basal insulin. 3. Diabetic neuropathy. -Continue gabapentin. 4. Dyslipidemia -Continue statins. 5. Normocytic anemia. -Most probably anemia chronic disease -Monitor H&H closely. 6. Fluids, electrolytes, and nutrition. -Carbohydrate controlled diet. 7. DVT prophylaxis -Subcutaneous Lovenox. 8. Plan. -Continue pain control. -Continue blood sugar control. -Await further podiatry recommendations. The patient was seen in collaboration with Dr. Jiménez. Result Diagram: 02/07/19 0446 02/07/19 0446 Results 24hrs Laboratory Tests Test 02/06/19 22:16 02/06/19 22:45 02/07/19 04:46 02/07/19 08:17 Bedside Glucose 85 151 White Blood Count 6.8 # 7.9 Red Blood Count 3.57 L 3.58 L Hemoglobin 11.0 L 11.0 L Hematocrit 31.4 L 32.1 L Mean Corpuscular Volume 88.0 89.7 Mean Corpuscular 30.8 30.7 Hemoglobin Mean Corpuscular 35.0 34.3 Hemoglobin Concent Red Cell Distribution 13.6 13.7 Width Platelet Count 209 221 Mean Platelet Volume 8.8 9.6 Immature Granulocytes % 0.400 0.500 H Neutrophils % 81.0 H 66.4 Lymphocytes % 12.6 L 21.7 Monocytes % 5.6 10.7 Eosinophils % 0.1 0.3 Basophils % 0.3 0.4 Nucleated Red Blood 0.0 0.0 Cells % Immature Granulocytes # 0.030 0.040 H Neutrophils # 5.5 5.3 Lymphocytes # 0.9 1.7 Monocytes # 0.4 0.9 Eosinophils # 0.0 0.0 Basophils # 0.0 0.0 Nucleated Red Blood 0.0 0.0 Cells # Sodium Level 137 139 Potassium Level 5.2 H 5.1 Chloride Level 101 102 Carbon Dioxide Level 24 28 Anion Gap 12 9 Blood Urea Nitrogen 23 H 22 H Creatinine 1.23 1.24 Est Glomerular Filtrat > 60 > 60 Rate mL/min Glucose Level 87 217 # Calcium Level 8.9 9.1 Total Bilirubin 0.6 0.9 Direct Bilirubin 0.00 0.00 Indirect Bilirubin 0.6 0.9 Aspartate Amino 20 21 Transf (AST/SGOT) Alanine 24 22 Aminotransferase (ALT/SG PT) Alkaline Phosphatase 55 46 Total Protein 7.3 6.9 Albumin 4.0 3.8 Globulin 3.30 H 3.10 Albumin/Globulin Ratio 1.21 1.22 Hemoglobin A1c 6.9 H Magnesium Level 1.2 L Triglycerides Level 78 Cholesterol Level 111 LDL Cholesterol, 63 Calculated HDL Cholesterol 32 Cholesterol/HDL Ratio 3.4 Thyroid Stimulating 1.450 Hormone (TSH) Test 02/07/19 12:36 Bedside Glucose 240 H Exam/Review of Systems Exam Vitals Vital Signs Date Temp Pulse Resp B/P (MAP) Pulse Ox O2 O2 Flow FiO2 Time Delivery Rate 02/07/19 99.6 89 16 124/64 98 Room Air 14:30 (84) 02/06/19 2.0 23:30 Intake and Output 02/06/19 02/06/19 02/07/19 1515:00 23:00 07:00 IntakeIntake Total 1800 ml 400 ml OutputOutput Total 25 ml 1500 ml BalanceBalance 1775 ml -1100 ml Results Results 24hrs Laboratory Tests Test 02/06/19 22:16 02/06/19 22:45 02/07/19 04:46 02/07/19 08:17 Bedside Glucose 85 151 White Blood Count 6.8 # 7.9 Red Blood Count 3.57 L 3.58 L Hemoglobin 11.0 L 11.0 L Hematocrit 31.4 L 32.1 L Mean Corpuscular Volume 88.0 89.7 Mean Corpuscular 30.8 30.7 Hemoglobin Mean Corpuscular 35.0 34.3 Hemoglobin Concent Red Cell Distribution 13.6 13.7 Width Platelet Count 209 221 Mean Platelet Volume 8.8 9.6 Immature Granulocytes % 0.400 0.500 H Neutrophils % 81.0 H 66.4 Lymphocytes % 12.6 L 21.7 Monocytes % 5.6 10.7 Eosinophils % 0.1 0.3 Basophils % 0.3 0.4 Nucleated Red Blood 0.0 0.0 Cells % Immature Granulocytes # 0.030 0.040 H Neutrophils # 5.5 5.3 Lymphocytes # 0.9 1.7 Monocytes # 0.4 0.9 Eosinophils # 0.0 0.0 Basophils # 0.0 0.0 Nucleated Red Blood 0.0 0.0 Cells # Sodium Level 137 139 Potassium Level 5.2 H 5.1 Chloride Level 101 102 Carbon Dioxide Level 24 28 Anion Gap 12 9 Blood Urea Nitrogen 23 H 22 H Creatinine 1.23 1.24 Est Glomerular Filtrat > 60 > 60 Rate mL/min Glucose Level 87 217 # Calcium Level 8.9 9.1 Total Bilirubin 0.6 0.9 Direct Bilirubin 0.00 0.00 Indirect Bilirubin 0.6 0.9 Aspartate Amino 20 21 Transf (AST/SGOT) Alanine 24 22 Aminotransferase (ALT/SG PT) Alkaline Phosphatase 55 46 Total Protein 7.3 6.9 Albumin 4.0 3.8 Globulin 3.30 H 3.10 Albumin/Globulin Ratio 1.21 1.22 Hemoglobin A1c 6.9 H Magnesium Level 1.2 L Triglycerides Level 78 Cholesterol Level 111 LDL Cholesterol, 63 Calculated HDL Cholesterol 32 Cholesterol/HDL Ratio 3.4 Thyroid Stimulating 1.450 Hormone (TSH) Test 02/07/19 12:36 Bedside Glucose 240 H Medications Medication Current Medications Atorvastatin Calcium (Lipitor) 20 mg QHS PO ; Start 02/07/19 at 21:00 Gabapentin (Neurontin) 100 mg TID PO Last administered on 02/07/19at 12:51; Admin Dose 100 MG; Start 02/07/19 at 09:00 Insulin Glargine (Lantus) 45 unit QHS SC ; Start 02/07/19 at 21:00 IV Flush (NS 3 ml) 3 ml PER PROTOCOL IV ; Start 02/06/19 at 22:30 Ondansetron HCl (Zofran Inj) 4 mg Q6H PRN IV NAUSEA/VOMITING; Start 02/06/19 at 22:30 Acetaminophen (Tylenol Tab) 650 mg Q6H PRN PO .PAIN 1-3 OR TEMP; Start 02/06/19 at 22:30 Acetaminophen/ Hydrocodone Bitart ([place] (5/325)) 1 tab Q6H PRN PO .MOD PAIN 4- 6 Last administered on 02/07/19at 12:51; Admin Dose 1 TAB; Start 02/06/19 at 22:30 Morphine Sulfate (morphine) 2 mg Q4H PRN IV .SEVERE PAIN 7-10 Last administered on 02/07/19 07:28; Admin Dose 2 MG; Start 02/06/19 at 22:30 Docusate Sodium (Colace) 100 mg Q12H PRN PO .CONSTIPATION; Start 02/06/19 at 22:30 Bisacodyl (Dulcolax) 5 mg DAILY PRN PO .CONSTIPATION; Start 02/06/19 at 22:30 Aspirin (Aspirin) 81 mg DAILY PO Last administered on 02/07/19at 08:43; Admin Dose 81 MG; Start 02/07/19 at 09:00 Diagnostic Test (Pha) (Accu-Chek) 1 ea 02 XX ; Start 02/08/19 at 02:00 Insulin Aspart (Novolog Insulin Pen) NOVOLOG *MILD* ALGORITHM WITH MEALS BEDTIM E SC Last administered on 02/07/19at 12:50; Admin Dose 3 UNIT; Start 02/07/19 at 08:00 Miscellaneous Information 1 ea NOTE XX ; Start 02/07/19 at 05:00 Glucose (Glutose) 15 gm Q15M PRN PO DECREASED GLUCOSE; Start 02/07/19 at 05:00 Glucose (Glutose) 22.5 gm Q15M PRN PO DECREASED GLUCOSE; Start 02/07/19 at 05:00 Dextrose (D50w Syringe) 25 ml Q15M PRN IV DECREASED GLUCOSE; Start 02/07/19 at 05:00 Dextrose (D50w Syringe) 50 ml Q15M PRN IV DECREASED GLUCOSE; Start 02/07/19 at 05:00 Glucagon (Glucagen) 1 mg Q15M PRN IM DECREASED GLUCOSE; Start 02/07/19 at 05:00 Glucose (Glutose) 15 gm Q15M PRN BUCCAL DECREASED GLUCOSE; Start 02/07/19 at 05:00 Magnesium Sulfate 3 gm/Dextrose 106 ml @ 35.333 mls/ hr ONCE ONCE IVPB ; Start 02/07/19 at 16:30; Stop 02/07/19 at 19:29 LUCAS DIAZ NP Feb 07, 2019 16:56
--- NOTE | 2019-02-07 18:30 | CONS ---
Assessment/Plan Assessment/Plan Assessment/Plan (Daily) Right lower extremity charcot neuropathy Right foot hammertoes DM2 with peripheral neuropathy Hx of left foot TMA Plan Dressings were changed and to remain clean dry and intact. Do not bear weight to the right lower extremity. Patient would benefit from SNF placement and appreciate case management input. PT/OT consulted. Reviewed X-rays and discussed with patient. Tight glycemic control. Continue IV abx. Consultation Date/Type/Reason Admit Date/Time Feb 06, 2019 at 14:26 Initial Consult Date Date/Time of Note DATE: 02/07/19 TIME: 18:30 24 HR Interval Summary Free Text/Dictation No acute events overnight Exam/Review of Systems Exam Vitals Vital Signs Date Temp Pulse Resp B/P (MAP) Pulse Ox O2 O2 Flow FiO2 Time Delivery Rate 02/07/19 99.6 89 16 124/64 98 Room Air 14:30 (84) 02/06/19 2.0 23:30 Intake and Output 02/06/19 02/06/19 02/07/19 1515:00 23:00 07:00 IntakeIntake Total 1800 ml 400 ml OutputOutput Total 25 ml 1500 ml BalanceBalance 1775 ml -1100 ml Exam Ex-fix in alignment without hardware failure Incision sites well approximated without gapping No drainage from pin sites No pain with pin sites and surgical site Results Result Diagram: 02/07/19 0446 02/07/19 0446 Results 24hrs Laboratory Tests Test 02/06/19 22:16 02/06/19 22:45 02/07/19 04:46 02/07/19 08:17 Bedside Glucose 85 151 White Blood Count 6.8 # 7.9 Red Blood Count 3.57 L 3.58 L Hemoglobin 11.0 L 11.0 L Hematocrit 31.4 L 32.1 L Mean Corpuscular Volume 88.0 89.7 Mean Corpuscular 30.8 30.7 Hemoglobin Mean Corpuscular 35.0 34.3 Hemoglobin Concent Red Cell Distribution 13.6 13.7 Width Platelet Count 209 221 Mean Platelet Volume 8.8 9.6 Immature Granulocytes % 0.400 0.500 H Neutrophils % 81.0 H 66.4 Lymphocytes % 12.6 L 21.7 Monocytes % 5.6 10.7 Eosinophils % 0.1 0.3 Basophils % 0.3 0.4 Nucleated Red Blood 0.0 0.0 Cells % Immature Granulocytes # 0.030 0.040 H Neutrophils # 5.5 5.3 Lymphocytes # 0.9 1.7 Monocytes # 0.4 0.9 Eosinophils # 0.0 0.0 Basophils # 0.0 0.0 Nucleated Red Blood 0.0 0.0 Cells # Sodium Level 137 139 Potassium Level 5.2 H 5.1 Chloride Level 101 102 Carbon Dioxide Level 24 28 Anion Gap 12 9 Blood Urea Nitrogen 23 H 22 H Creatinine 1.23 1.24 Est Glomerular Filtrat > 60 > 60 Rate mL/min Glucose Level 87 217 # Calcium Level 8.9 9.1 Total Bilirubin 0.6 0.9 Direct Bilirubin 0.00 0.00 Indirect Bilirubin 0.6 0.9 Aspartate Amino 20 21 Transf (AST/SGOT) Alanine 24 22 Aminotransferase (ALT/SG PT) Alkaline Phosphatase 55 46 Total Protein 7.3 6.9 Albumin 4.0 3.8 Globulin 3.30 H 3.10 Albumin/Globulin Ratio 1.21 1.22 Hemoglobin A1c 6.9 H Magnesium Level 1.2 L Triglycerides Level 78 Cholesterol Level 111 LDL Cholesterol, 63 Calculated HDL Cholesterol 32 Cholesterol/HDL Ratio 3.4 Thyroid Stimulating 1.450 Hormone (TSH) Test 02/07/19 12:36 02/07/19 18:16 Bedside Glucose 240 H 217 Medications Medication Current Medications Atorvastatin Calcium (Lipitor) 20 mg QHS PO ; Start 02/07/19 at 21:00 Gabapentin (Neurontin) 100 mg TID PO Last administered on 02/07/19at 12:51; Admin Dose 100 MG; Start 02/07/19 at 09:00 Insulin Glargine (Lantus) 45 unit QHS SC ; Start 02/07/19 at 21:00 IV Flush (NS 3 ml) 3 ml PER PROTOCOL IV ; Start 02/06/19 at 22:30 Ondansetron HCl (Zofran Inj) 4 mg Q6H PRN IV NAUSEA/VOMITING; Start 02/06/19 at 22:30 Acetaminophen (Tylenol Tab) 650 mg Q6H PRN PO .PAIN 1-3 OR TEMP; Start 02/06/19 at 22:30 Acetaminophen/ Hydrocodone Bitart ([place] (5/325)) 1 tab Q6H PRN PO .MOD PAIN 4- 6 Last administered on 02/07/19at 12:51; Admin Dose 1 TAB; Start 02/06/19 at 22:30 Morphine Sulfate (morphine) 2 mg Q4H PRN IV .SEVERE PAIN 7-10 Last administered on 02/07/19at 07:28; Admin Dose 2 MG; Start 02/06/19 at 22:30 Docusate Sodium (Colace) 100 mg Q12H PRN PO .CONSTIPATION; Start 02/06/19 at 22:30 Bisacodyl (Dulcolax) 5 mg DAILY PRN PO .CONSTIPATION; Start 02/06/19 at 22:30 Aspirin (Aspirin) 81 mg DAILY PO Last administered on 02/07/19at 08:43; Admin Dose 81 MG; Start 02/07/19 at 09:00 Diagnostic Test (Pha) (Accu-Chek) 1 ea 02 XX ; Start 02/08/19 at 02:00 Insulin Aspart (Novolog Insulin Pen) NOVOLOG *MILD* ALGORITHM WITH MEALS BEDTIME SC Last administered on 02/07/19 18:22; Admin Dose 2 UNIT; Start 02/07/19 at 08:00 Miscellaneous Information 1 ea NOTE XX ; Start 02/07/19 at 05:00 Glucose (Glutose) 15 gm Q15M PRN PO DECREASED GLUCOSE; Start 02/07/19 at 05:00 Glucose (Glutose) 22.5 gm Q15M PRN PO DECREASED GLUCOSE; Start 02/07/19 at 05:00 Dextrose (D50w Syringe) 25 ml Q15M PRN IV DECREASED GLUCOSE; Start 02/07/19 at 05:00 Dextrose (D50w Syringe) 50 ml Q15M PRN IV DECREASED GLUCOSE; Start 02/07/19 at 05:00 Glucagon (Glucagen) 1 mg Q15M PRN IM DECREASED GLUCOSE; Start 02/07/19 at 05:00 Glucose (Glutose) 15 gm Q15M PRN BUCCAL DECREASED GLUCOSE; Start 02/07/19 at 05:00 Magnesium Sulfate 3 gm/Dextrose 106 ml @ 35.333 mls/ hr ONCE ONCE IVPB ; Start 02/07/19 at 16:30; Stop 02/07/19 at 19:29 Enoxaparin Sodium (Lovenox) 40 mg DAILY SC ; Start 02/08/19 at 09:00 ML ROSALES DPM Feb 07, 2019 18:30
[2019-02-07] MEDS: ATORVASTATIN 20 MG TAB PO SCH (20:07)
[2019-02-07] MEDS ORDERED: INSULIN GLARGINE [LANtus] 3 ML PEN SC SCH (21:00)
[2019-02-07] MEDS: ACETAMINOPHEN 325 MG TAB PO PRN (21:47)
[2019-02-07] MEDS: INSULIN GLARGINE [LANTus] (100 UNITS/ML) SYG SC SCH (21:50)
[2019-02-08 01:23] VITALS: BP 116/62; PULSE 89; RESP 18
[2019-02-08 01:27] VITALS: BP 161/70; PULSE 80; RESP 18
[2019-02-08] MEDS: ACCU-CHEK XX SCH (02:00)
[2019-02-08 07:09] VITALS: BP 141/74; PULSE 85; RESP 17
[2019-02-08] MEDS: INSULIN ASPART [NOVOLOG] 3 ML PEN SC SCH ×4 (08:00→20:48)
[2019-02-08] MEDS: GABAPENTIN 100 MG CAP PO SCH ×3 (08:11→20:42)
[2019-02-08] MEDS: ASPIRIN 81 MG TAB PO SCH (08:11)
[2019-02-08] MEDS: morphine 2 MG INJ IV PRN ×2 (08:14→14:12)
[2019-02-08] MEDS: ENOXAPARIN 40 MG/0.4 ML SYG SC SCH (08:15)
[2019-02-08 14:09] VITALS: BP 170/82; PULSE 101; RESP 18
[2019-02-08] MEDS: ACETAMINOPHEN 325 MG TAB PO PRN (14:17)
--- NOTE | 2019-02-08 15:23 | PN ---
Date/Time of Note Date/Time of Note DATE: 02/08/19 TIME: 15:23 Assessment/Plan VTE Prophylaxis Risk score (from Nsg)>0 risk: 3 SCD applied (from Nsg): No SCD contraindicated: other Pharmacological prophylaxis: LMWH Lines/Catheters IV Catheter Type (from Nrsg): Saline Lock Urinary Cath still in place: No Assessment/Plan Hospital Course SUBJECTIVE: Right lower extremity pain well controlled. Had febrile episodes last night and throughout the day. Denies any sore throat or cough. OBJECTIVE: Physical Exam General: Adequately build 58 year-old male lying in bed in no apparent distress. HEENT: Normocephalic, atraumatic. Eyes: Anicteric sclerae, conjunctivae clear. ENT: Nasal septum midline, oral mucosa moist. Neck supple, no JVD noticed. Respiratory: Bilaterally clear breath sounds. No use of accessory muscles of respiration. No adventitious breath sounds. Cardiovascular: S1, S2 heard. Regular rate and rhythm. Abdomen: Soft, nontender, and nondistended. Bowel sounds positive in all 4 quadrants. Genitourinary: Deferred. Extremities: No cyanosis, no clubbing, no edema. Right lower extremity surgical dressing. Left lower extremity status post transmetatarsal amputation. Neurologic: Cranial nerves II through XII grossly intact. The patient is awake, alert, and oriented. Skin: Normal skin turgor. No skin rashes. Labs & Vitals per chart ASSESSMENT & PLAN 58-year-old male with comorbidities including type 2 diabetes mellitus, peripheral neuropathy, hyperlipidemia, and left eye blindness secondary to d iabetic retinopathy. The patient was brought in to [facility] for elective surgery for a right lower extremity Charcot foot neuropathy with right foot hammertoes. The patient underwent right midfoot arthrodesis, flexor tenotomy of digits 2-4, autograft bone harvest, and right third digit PIPJ arthroplasty. The patient was admitted to inpatient setting for further monitoring. 1. Right lower extremity Charcot neuropathy, right foot hammertoes. -Status post right midfoot arthrodesis, flexor tenotomy of digits 2-4, autograft bone harvest, right third digit PIPJ arthroplasty, and application of Ilizarov external fixator. -Nonweightbearing of right lower extremity-continue pain control. 2. Diabetes mellitus type 2. -Hemoglobin A1c 6.9. -Continue sliding scale insulin along with basal insulin. 3. Diabetic neuropathy. -Continue gabapentin. 4. Dyslipidemia -Continue statins. 5. Normocytic anemia. -Most probably anemia chronic disease -Monitor H&H closely. 6. Fluids, electrolytes, and nutrition. -Carbohydrate controlled diet. 7. DVT prophylaxis -Subcutaneous Lovenox. 8. Plan. -Continue pain control. -Continue blood sugar control. -Await further podiatry recommendations. -Obtain blood cultures. -Start empiric antibiotics after obtaining blood cultures because of persistent febrile illness. The patient was seen in collaboration with Dr. Jiménez. Result Diagram: 02/08/1953702/08/19537 Results 24hrs Laboratory Tests Test 02/07/19 18:16 02/07/19 21:45 02/08/19 05:38 02/08/19 06:37 Bedside Glucose 217 307 H 113 White Blood Count 9.8 # Red Blood Count 3.93 L Hemoglobin 11.9 L Hematocrit 35.1 L Mean Corpuscular 89.3 Volume Mean Corpuscular 30.3 Hemoglobin Mean Corpuscular 33.9 Hemoglobin Concent Red Cell 13.4 Distribution Width Platelet Count 223 Mean Platelet Volume 9.3 Immature 0.400 Granulocytes % Neutrophils % 57.7 Lymphocytes % 23.2 Monocytes % 17.6 H Eosinophils % 0.6 Basophils % 0.5 Nucleated Red Blood 0.0 Cells % Immature 0.040 H Granulocytes # Neutrophils # 5.6 Lymphocytes # 2.3 Monocytes # 1.7 H Eosinophils # 0.1 Basophils # 0.1 Nucleated Red Blood 0.0 Cells # Sodium Level 140 Potassium Level 4.5 Chloride Level 98 Carbon Dioxide Level 31 Anion Gap 11 Blood Urea Nitrogen 20 Creatinine 1.31 H Est Glomerular 56 L Filtrat Rate mL/min Glucose Level 117 # Calcium Level 9.8 Phosphorus Level 3.7 Magnesium Level 2.1 Total Bilirubin 1.8 H Direct Bilirubin 0.00 Indirect Bilirubin 1.8 H Aspartate Amino 19 Transf (AST/SGOT) Alanine 17 Aminotransferase (AL T/SGPT) Alkaline Phosphatase 50 Total Protein 7.9 # Albumin 4.3 Globulin 3.60 H Albumin/Globulin 1.19 Ratio Triglycerides Level 86 Cholesterol Level 116 LDL Cholesterol, 62 Calculated HDL Cholesterol 37 Cholesterol/HDL 3.1 Ratio Test 02/08/19 08:10 02/08/19 12:43 Bedside Glucose 90 148 Exam/Review of Systems Exam Vitals Vital Signs Date Temp Pulse Resp B/P (MAP) Pulse Ox O2 O2 Flow FiO2 Time Delivery Rate 02/08/19 100.3 14:17 02/08/19 101 18 170/82 98 Room Air 14:09 (111) 02/06/19 2.0 23:30 Intake and Output 02/07/19 02/07/19 02/08/19 1515:00 23:00 07:00 IntakeIntake Total 1200 ml 346 ml OutputOutput Total 2205 ml 1300 ml BalanceBalance -1005 ml -954 ml Results Results 24hrs Laboratory Tests Test 02/07/19 18:16 02/07/19 21:45 02/08/19 05:38 02/08/19 06:37 Bedside Glucose 217 307 H 113 White Blood Count 9.8 # Red Blood Count 3.93 L Hemoglobin 11.9 L Hematocrit 35.1 L Mean Corpuscular 89.3 Volume Mean Corpuscular 30.3 Hemoglobin Mean Corpuscular 33.9 Hemoglobin Concent Red Cell 13.4 Distribution Width Platelet Count 223 Mean Platelet Volume 9.3 Immature 0.400 Granulocytes % Neutrophils % 57.7 Lymphocytes % 23.2 Monocytes % 17.6 H Eosinophils % 0.6 Basophils % 0.5 Nucleated Red Blood 0.0 Cells % Immature 0.040 H Granulocytes # Neutrophils # 5.6 Lymphocytes # 2.3 Monocytes # 1.7 H Eosinophils # 0.1 Basophils # 0.1 Nucleated Red Blood 0.0 Cells # Sodium Level 140 Potassium Level 4.5 Chloride Level 98 Carbon Dioxide Level 31 Anion Gap 11 Blood Urea Nitrogen 20 Creatinine 1.31 H Est Glomerular 56 L Filtrat Rate mL/min Glucose Level 117 # Calcium Level 9.8 Phosphorus Level 3.7 Magnesium Level 2.1 Total Bilirubin 1.8 H Direct Bilirubin 0.00 Indirect Bilirubin 1.8 H Aspartate Amino 19 Transf (AST/SGOT) Alanine 17 Aminotransferase (AL T/SGPT) Alkaline Phosphatase 50 Total Protein 7.9 # Albumin 4.3 Globulin 3.60 H Albumin/Globulin 1.19 Ratio Triglycerides Level 86 Cholesterol Level 116 LDL Cholesterol, 62 Calculated HDL Cholesterol 37 Cholesterol/HDL 3.1 Ratio Test 02/08/19 08:10 02/08/19 12:43 Bedside Glucose 90 148 Medications Medication Current Medications Atorvastatin Calcium (Lipitor) 20 mg QHS PO Last administered on 02/07/19at 20:07; Admin Dose 20 MG; Start 02/07/19 at 21:00 Gabapentin (Neurontin) 100 mg TID PO Last administered on 02/08/19 12:43; Admin Dose 100 MG; Start 02/07/19 at 09:00 IV Flush (NS 3 ml) 3 ml PER PROTOCOL IV ; Start 02/06/19 at 22:30 Ondansetron HCl (Zofran Inj) 4 mg Q6H PRN IV NAUSEA/VOMITING; Start 02/06/19 at 22:30 Acetaminophen (Tylenol Tab) 650 mg Q6H PRN PO .PAIN 1-3 OR TEMP Last administered on 02/08/19at 14:17; Admin Dose 650 MG; Start 02/06/19 at 22:30 Acetaminophen/ Hydrocodone Bitart ([place] (5/325)) 1 tab Q6H PRN PO .MOD PAIN 4- 6 Last administered on 02/07/19 12:51; Admin Dose 1 TAB; Start 02/06/19 at 22:30 Morphine Sulfate (morphine) 2 mg Q4H PRN IV .SEVERE PAIN 7-10 Last administered on 02/08/19at 14:12; Admin Dose 2 MG; Start 02/06/19 at 22:30 Docusate Sodium (Colace) 100 mg Q12H PRN PO .CONSTIPATION; Start 02/06/19 at 22:30 Bisacodyl (Dulcolax) 5 mg DAILY PRN PO .CONSTIPATION; Start 02/06/19 at 22:30 Aspirin (Aspirin) 81 mg DAILY PO Last administered on 02/08/19 08:11; Admin Dose 81 MG; Start 02/07/19 at 09:00 Diagnostic Test (Pha) (Accu-Chek) 1 ea 02 XX ; Start 02/08/19 at 02:00 Insulin Aspart (Novolog Insulin Pen) NOVOLOG *MILD* ALGORITHM WITH MEALS BEDTIME SC Last administered on 02/08/19 12:48; Admin Dose 1 UNIT; Start 02/07/19 at 08:00 Miscellaneous Information 1 ea NOTE XX ; Start 02/07/19 at 05:00 Glucose (Glutose) 15 gm Q15M PRN PO DECREASED GLUCOSE; Start 02/07/19 at 05:00 Glucose (Glutose) 22.5 gm Q15M PRN PO DECREASED GLUCOSE; Start 02/07/19 at 05:00 Dextrose (D50w Syringe) 25 ml Q15M PRN IV DECREASED GLUCOSE; Start 02/07/19 at 05:00 Dextrose (D50w Syringe) 50 ml Q15M PRN IV DECREASED GLUCOSE; Start 02/07/19 at 05:00 Glucagon (Glucagen) 1 mg Q15M PRN IM DECREASED GLUCOSE; Start 02/07/19 at 05:00 Glucose (Glutose) 15 gm Q15M PRN BUCCAL DECREASED GLUCOSE; Start 02/07/19 at 05:00 Enoxaparin Sodium (Lovenox) 40 mg DAILY SC Last administered on 02/08/19at 08:15; Admin Dose 40 MG; Start 02/08/19 at 09:00 Insulin Glargine (Lantus) 45 units QHS SC Last administered on 02/07/19at 21:50; Admin Dose 45 UNITS; Start 02/07/19 at 21:00 LUCAS DIAZ NP Feb 08, 2019 15:23
[2019-02-08] MEDS ORDERED: SOD CHLORIDE 0.9% 1,000 ML IV SCH (15:30)
[2019-02-08] MEDS ORDERED: CEFTRIAXONE 500 MG in SOD CHLORIDE 0.9% 50 ML IVPB SCH (18:30)
[2019-02-08 19:16] VITALS: BP 158/74; PULSE 50; RESP 18
[2019-02-08 19:20] VITALS: BP 141/67; PULSE 84; RESP 18
[2019-02-08] MEDS: ATORVASTATIN 20 MG TAB PO SCH (20:42)
[2019-02-08] MEDS: INSULIN GLARGINE [LANTus] (100 UNITS/ML) SYG SC SCH (20:47)
[2019-02-08] MEDS: CEFAZOLIN 2 GM/50 ML (PMX) 50 ML IVPB SCH (22:11)
[2019-02-09 01:53] VITALS: BP 126/68; PULSE 97; RESP 18
[2019-02-09] MEDS: ACCU-CHEK XX SCH (02:00)
[2019-02-09] MEDS: ACETAMINOPHEN 325 MG TAB PO PRN (02:07)
[2019-02-09] MEDS: CEFAZOLIN 2 GM/50 ML (PMX) 50 ML IVPB SCH ×2 (06:10→13:03)
[2019-02-09 07:47] VITALS: BP 103/56; PULSE 83; RESP 20
[2019-02-09] MEDS: INSULIN ASPART [NOVOLOG] 3 ML PEN SC SCH ×5 (07:57→20:58)
[2019-02-09] MEDS: ASPIRIN 81 MG TAB PO SCH (08:15)
[2019-02-09] MEDS: GABAPENTIN 100 MG CAP PO SCH ×3 (08:15→20:55)
[2019-02-09] MEDS: HYDROCODONE/APAP (5/325) TAB PO PRN ×3 (08:15→20:55)
[2019-02-09] MEDS: ENOXAPARIN 40 MG/0.4 ML SYG SC SCH (08:17)
[2019-02-09] MEDS: DOCUSATE SODIUM 100 MG CAP PO PRN ×2 (08:25→21:36)
[2019-02-09 14:30] VITALS: BP 144/74; PULSE 83; RESP 20
--- NOTE | 2019-02-09 14:49 | PN ---
Date/Time of Note Date/Time of Note DATE: 02/09/19 TIME: 14:46 Assessment/Plan VTE Prophylaxis Risk score (from Nsg)>0 risk: 3 SCD applied (from Ns): No SCD contraindicated: low risk/ambulating, bilateral LE trauma Pharmacological prophylaxis: LMWH Lines/Catheters IV Catheter Type (from Nrsg): Peripheral IV Urinary Cath still in place: No Assessment/Plan Hospital Course Assessment and plan 1. Rt Charcot foot status post surgery, stable continue nonweightbearing status 2. Chronic diabetic associated neuropathy 3. Chronic type 2 diabetes 4. Debility 5. Dyslipidemia 6. Past tobacco 7. Left TMA status 8. Postop fever? Check chest x-ray Subjective: Events noted pain controlled. Intermittent fever presently improved. Sniff bed arranged. May need PICC prior Objective: Vital signs stable; fever improved Physical exam No pallor Regular Clear Benign overweight Left TMA status; right foot CDI Result Diagram: 02/09/19 0553 02/09/19 0553 Results 24hrs Laboratory Tests Test 02/08/19 17:31 02/08/19 20:39 02/09/19 02:14 02/09/19 05:53 Bedside Glucose 220 233 H 125 White Blood Count 9.0 Red Blood Count 3.52 L Hemoglobin 10.9 L Hematocrit 31.1 L Mean Corpuscular 88.4 Volume Mean Corpuscular 31.0 Hemoglobin Mean Corpuscular 35.0 Hemoglobin Concent Red Cell 13.0 Distribution Width Platelet Count 221 Mean Platelet Volume 9.5 Immature 0.300 Granulocytes % Neutrophils % 58.6 Lymphocytes % 25.9 Monocytes % 14.6 H Eosinophils % 0.3 Basophils % 0.3 Nucleated Red Blood 0.0 Cells % Immature 0.030 Granulocytes # Neutrophils # 5.3 Lymphocytes # 2.3 Monocytes # 1.3 H Eosinophils # 0.0 Basophils # 0.0 Nucleated Red Blood 0.0 Cells # Sodium Level 136 Potassium Level 4.2 Chloride Level 99 Carbon Dioxide Level 25 Anion Gap 12 Blood Urea Nitrogen 19 Creatinine 1.24 Est Glomerular > 60 Filtrat Rate mL/min Glucose Level 102 Calcium Level 9.4 Phosphorus Level 3.2 Magnesium Level 1.7 Total Bilirubin 1.6 H Direct Bilirubin 0.00 Indirect Bilirubin 1.6 H Aspartate Amino 15 Transf (AST/SGOT) Alanine 12 L Aminotransferase (AL T/SGPT) Alkaline Phosphatase 45 Total Protein 7.4 Albumin 3.9 Globulin 3.50 H Albumin/Globulin 1.11 Ratio Test 02/09/19 07:56 02/09/19 12:52 Bedside Glucose 103 225 H Exam/Review of Systems Exam Vitals Vital Signs Date Temp Pulse Resp B/P (MAP) Pulse Ox O2 O2 Flow FiO2 Time Delivery Rate 02/09/19 98.5 83 20 144/74 98 14:30 (97) 02/08/19 Room Air 14:09 02/06/19 2.0 23:30 Intake and Output 02/08/19 02/08/19 02/09/19 1515:00 23:00 07:00 IntakeIntake Total 600 ml 880 ml OutputOutput Total 500 ml 650 ml 700 ml BalanceBalance 100 ml 230 ml -700 ml Results Results 24hrs Laboratory Tests Test 02/08/19 17:31 02/08/19 20:39 02/09/19 02:14 02/09/19 05:53 Bedside Glucose 220 233 H 125 White Blood Count 9.0 Red Blood Count 3.52 L Hemoglobin 10.9 L Hematocrit 31.1 L Mean Corpuscular 88.4 Volume Mean Corpuscular 31.0 Hemoglobin Mean Corpuscular 35.0 Hemoglobin Concent Red Cell 13.0 Distribution Width Platelet Count 221 Mean Platelet Volume 9.5 Immature 0.300 Granulocytes % Neutrophils % 58.6 Lymphocytes % 25.9 Monocytes % 14.6 H Eosinophils % 0.3 Basophils % 0.3 Nucleated Red Blood 0.0 Cells % Immature 0.030 Granulocytes # Neutrophils # 5.3 Lymphocytes # 2.3 Monocytes # 1.3 H Eosinophils # 0.0 Basophils # 0.0 Nucleated Red Blood 0.0 Cells # Sodium Level 136 Potassium Level 4.2 Chloride Level 99 Carbon Dioxide Level 25 Anion Gap 12 Blood Urea Nitrogen 19 Creatinine 1.24 Est Glomerular > 60 Filtrat Rate mL/min Glucose Level 102 Calcium Level 9.4 Phosphorus Level 3.2 Magnesium Level 1.7 Total Bilirubin 1.6 H Direct Bilirubin 0.00 Indirect Bilirubin 1.6 H Aspartate Amino 15 Transf (AST/SGOT) Alanine 12 L Aminotransferase (AL T/SGPT) Alkaline Phosphatase 45 Total Protein 7.4 Albumin 3.9 Globulin 3.50 H Albumin/Globulin 1.11 Ratio Test 02/09/19 07:56 02/09/19 12:52 Bedside Glucose 103 225 H Medications Medication Current Medications Atorvastatin Calcium (Lipitor) 20 mg QHS PO Last administered on 02/08/19 20:42; Admin Dose 20 MG; Start 02/07/19 at 21:00 Gabapentin (Neurontin) 100 mg TID PO Last administered on 02/09/19 13:02; Admin Dose 100 MG; Start 02/07/19 at 09:00 IV Flush (NS 3 ml) 3 ml PER PROTOCOL IV ; Start 02/06/19 at 22:30 Ondansetron HCl (Zofran Inj) 4 mg Q6H PRN IV NAUSEA/VOMITING; Start 02/06/19 at 22:30 Acetaminophen (Tylenol Tab) 650 mg Q6H PRN PO .PAIN 1-3 OR TEMP Last administered on 02/09/19 02:07; Admin Dose 650 MG; Start 02/06/19 at 22:30 Acetaminophen/ Hydrocodone Bitart ([place] (5/325)) 1 tab Q6H PRN PO .MOD PAIN 4- 6 Last administered on 02/09/19 14:25; Admin Dose 1 TAB; Start 02/06/19 at 22:30 Morphine Sulfate (morphine) 2 mg Q4H PRN IV .SEVERE PAIN 7-10 Last administered on 02/08/19 14:12; Admin Dose 2 MG; Start 02/06/19 at 22:30 Docusate Sodium (Colace) 100 mg Q12H PRN PO .CONSTIPATION Last administered on 02/09/19 08:25; Admin Dose 100 MG; Start 02/06/19 at 22:30 Bisacodyl (Dulcolax) 5 mg DAILY PRN PO .CONSTIPATION; Start 02/06/19 at 22:30 Aspirin (Aspirin) 81 mg DAILY PO Last administered on 02/09/19 08:15; Admin Dose 81 MG; Start 02/07/19 at 09:00 Diagnostic Test (Pha) (Accu-Chek) 1 ea 02 XX Last administered on 02/09/19 02:00; Admin Dose 1 EA; Start 02/08/19 at 02:00 Insulin Aspart (Novolog Insulin Pen) NOVOLOG *MILD* ALGORITHM WITH MEALS BEDTIME SC Last administered on 02/09/19 12:55; Admin Dose 3 UNIT; Start 02/07/19 at 08:00 Miscellaneous Information 1 ea NOTE XX ; Start 02/07/19 at 05:00 Glucose (Glutose) 15 gm Q15M PRN PO DECREASED GLUCOSE; Start 02/07/19 at 05:00 Glucose (Glutose) 22.5 gm Q15M PRN PO DECREASED GLUCOSE; Start 02/07/19 at 05:00 Dextrose (D50w Syringe) 25 ml Q15M PRN IV DECREASED GLUCOSE; Start 02/07/19 at 05:00 Dextrose (D50w Syringe) 50 ml Q15M PRN IV DECREASED GLUCOSE; Start 02/07/19 at 05:00 Glucagon (Glucagen) 1 mg Q15M PRN IM DECREASED GLUCOSE; Start 02/07/19 at 05:00 Glucose (Glutose) 15 gm Q15M PRN BUCCAL DECREASED GLUCOSE; Start 02/07/19 at 05:00 Enoxaparin Sodium (Lovenox) 40 mg DAILY SC Last administered on 02/09/19at 08: 17; Admin Dose 40 MG; Start 02/08/19 at 09:00 Insulin Glargine (Lantus) 45 units QHS SC Last administered on 02/08/19at 20:47; Admin Dose 45 UNITS; Start 02/07/19 at 21:00 Cefazolin Sodium/ Dextrose 50 ml @ 100 mls/hr Q8 IVPB Last administered on 02/09/19at 13:03; Admin Dose 100 MLS/HR; Start 02/08/19 at 22:00; Stop 02/15/19 at 08:00 ABHI DEVLIN MD Feb 09, 2019 14:49
[2019-02-09 19:39] VITALS: BP 145/82; PULSE 80; RESP 18
--- NOTE | 2019-02-09 20:15 | CONS ---
DATE OF ADMISSION: 02/06/2019 DATE OF CONSULTATION: 02/09/2019 TYPE OF CONSULTATION: Infectious disease. REQUESTING PHYSICIAN: Juan Devlin MD and Ml Rosales DPM Thank you for this consultation. HISTORY OF PRESENT ILLNESS: This is a 58-year-old man, well known to our service from previous admis dianna. The patient is with a history of right foot cellulitis, Charcot deformity and osteomyelitis st atus post multiple debridements and treated with IV antibiotics for 6 weeks for osteomyelitis. The p atient was readmitted and underwent right mid foot arthrodesis, flexor tenotomy of digits 2 to 4, aut ograft bone harvest, right 3rd digit PIPJ arthroplasty and application of external fixator that was d one on 02/06/2019. The patient is currently on Ancef, status post high fever last night of 101.6, cu rrently afebrile. Blood cultures are negative. VITAL SIGNS: Temperature now 98.7, pulse 80, respirations 18, blood pressure 145/82, saturation 100 on room air. LABORATORY DATA: WBC 9, H and H 10.9 and 31.1, platelets 221, neutrophils 58.6. BUN 19, creatinine 1.24. PAST MEDICAL HISTORY: As per history of present illness. SOCIAL HISTORY: The patient came from home. Denies smoking, alcohol or illicits. REVIEW OF SYSTEMS: All negative at the time of examination. PHYSICAL EXAMINATION: GENERAL: This is well-developed, well-nourished, middle-aged man who is alert, in no distress. HEENT: Head is atraumatic, normocephalic. Sclerae are anicteric. Buccal mucosa is pink. NECK: Supple. CHEST: Rise symmetrical. Breath sounds diminished to bases. HEART: S1, S2. ABDOMEN: Soft. Bowel tones are present. EXTREMITIES: With right lower extremity wrapped and presence of external fixator. DIAGNOSTIC IMPRESSION: This is a 58-year-old man with a history of diabetes, right foot Charcot arth ropathy, diabetic neuropathy, anemia who is status post surgical intervention day #3. The patient sp iked a fever of 101 last night. He is currently on Ancef which per discussion with Dr. Rosales we will continue for 1 week. He is currently afebrile. Cultures had been negative. We will change ant ibiotics to Zosyn and order chest x-ray. We will also order urine culture if it has not been done ye t. If he spikes fevers, we will reculture him again. If his chest x-ray and cultures are negative, we will switch him back to Ancef to continue for 1 week post-surgery. I discussed with Dr. Rosales . I discussed with Dr. Wallace who was covering for Dr. Bonilla. Dictated By: IRIS SANTIZO UNIT SUPERVISOR for RUPAL BONILLA MD NI/NTS Conf#: [id number] DID#: [id number] CC: ML ROSALES DPM; JUAN DEVLIN MD;*End*
[2019-02-09] MEDS: LACTOBACILLUS RHAMNOSUS CAP PO SCH (20:55)
[2019-02-09] MEDS: ATORVASTATIN 20 MG TAB PO SCH (20:55)
[2019-02-09] MEDS: INSULIN GLARGINE [LANTus] (100 UNITS/ML) SYG SC SCH (21:00)
[2019-02-09] MEDS: PIPER-TAZO 3.375 GM IV (PMX) 100 ML IVPB SCH (21:08)
[2019-02-10] MEDS: ACCU-CHEK XX SCH (01:12)
[2019-02-10 01:40] VITALS: BP 120/67; PULSE 73; RESP 18
[2019-02-10] MEDS: ACETAMINOPHEN 325 MG TAB PO PRN (01:49)
[2019-02-10] MEDS: PIPER-TAZO 3.375 GM IV (PMX) 100 ML IVPB SCH ×2 (06:06→13:24)
[2019-02-10] MEDS: BISACODYL (EC) 5 MG TAB PO PRN (06:06)
[2019-02-10] MEDS: HYDROCODONE/APAP (5/325) TAB PO PRN ×5 (06:07→21:01)
[2019-02-10 07:53] VITALS: BP 115/65; PULSE 72; RESP 20
[2019-02-10] MEDS: INSULIN ASPART [NOVOLOG] 3 ML PEN SC SCH ×7 (08:00→21:08)
[2019-02-10] MEDS: ASPIRIN 81 MG TAB PO SCH (08:26)
[2019-02-10] MEDS: LACTOBACILLUS RHAMNOSUS CAP PO SCH ×2 (08:26→21:01)
[2019-02-10] MEDS: GABAPENTIN 100 MG CAP PO SCH ×3 (08:26→21:01)
[2019-02-10] MEDS: ENOXAPARIN 40 MG/0.4 ML SYG SC SCH (08:26)
--- NOTE | 2019-02-10 10:29 | PDOCDIS ---
Discharge Instructions CONDITION [id number] Patient Condition: [id number] Stable HOME CARE INSTRUCTIONS: [id number] Diet Instructions: Phoez6m 4Bd Activity Restrictions: [id number] Avoid heavy lifting [id number] Activity Restrictions Comment: [id number] NWB Rt leg FOLLOW UP/APPOINTMENTS Follow-up Plan PCP & Podiatry 1-2wks Dr Alva 2wks/ prABHI Garcia MD Feb 10, 2019 10:28
[2019-02-10] MEDS ORDERED: LACT1CAP28 PO (10:32)
[2019-02-10] MEDS ORDERED: ENOX40DI2 SC (10:32)
[2019-02-10] MEDS ORDERED: NOVO3I SC (10:32)
[2019-02-10] MEDS ORDERED: DOCU-144 PO (10:32)
[2019-02-10] MEDS ORDERED: Insulin Glargine SC (10:32)
--- NOTE | 2019-02-10 10:35 | PN ---
Date/Time of Note Date/Time of Note DATE: 02/10/19 TIME: 10:33 Assessment/Plan VTE Prophylaxis Risk score (from Nsg)>0 risk: 3 SCD applied (from Ns): Yes SCD contraindicated: low risk/ambulating Pharmacological prophylaxis: LMWH Lines/Catheters IV Catheter Type (from Nrsg): Peripheral IV Urinary Cath still in place: No Assessment/Plan Hospital Course Assessment and plan 1. Rt Charcot foot status post surgery, stable continue nonweightbearing status 2. Chronic diabetic associated neuropathy 3. Chronic type 2 diabetes 4. Debility 5. Dyslipidemia 6. Past tobacco 7. Left TMA status 8. Postop fever? Check urine culture. chest x-ray is okay. May need 5 days of IV antibiotics at [facility]. If able to use peripheral IV at [facility], we can discharge him today. Subjective: Events noted pain controlled. Intermittent fever presently improved. Sniff bed arranged. Objective: Vital signs stable; fever improved Physical exam No pallor Regular Clear Benign overweight Left TMA status; right foot CDI Result Diagram: 02/10/19 0514 02/10/19 0514 Results 24hrs Laboratory Tests Test 02/09/19 12:52 02/09/19 17:36 02/09/19 20:57 02/10/19 05:14 Bedside Glucose 225 H 179 174 White Blood Count 7.5 Red Blood Count 3.23 L Hemoglobin 9.9 L Hematocrit 28.3 L Mean Corpuscular 87.6 Volume Mean Corpuscular 30.7 Hemoglobin Mean Corpuscular 35.0 Hemoglobin Concent Red Cell 13.0 Distribution Width Platelet Count 215 Mean Platelet Volume 9.4 Immature 0.300 Granulocytes % Neutrophils % 50.0 Lymphocytes % 29.5 Monocytes % 15.3 H Eosinophils % 4.4 Basophils % 0.5 Nucleated Red Blood 0.0 Cells % Immature 0.020 Granulocytes # Neutrophils # 3.8 Lymphocytes # 2.2 Monocytes # 1.2 H Eosinophils # 0.3 Basophils # 0.0 Nucleated Red Blood 0.0 Cells # Sodium Level 135 Potassium Level 4.4 Chloride Level 96 L Carbon Dioxide Level 29 Anion Gap 10 Blood Urea Nitrogen 22 H Creatinine 1.21 Est Glomerular > 60 Filtrat Rate mL/min Glucose Level 96 Calcium Level 9.3 Phosphorus Level 3.9 Magnesium Level 1.7 Total Bilirubin 1.1 Direct Bilirubin 0.00 Indirect Bilirubin 1.1 Aspartate Amino 14 L Transf (AST/SGOT) Alanine 22 Aminotransferase (AL T/SGPT) Alkaline Phosphatase 46 Total Protein 7.2 Albumin 3.7 Globulin 3.50 H Albumin/Globulin 1.05 Ratio Thyroid Stimulating 1.530 Hormone (TSH) Test 02/10/19 08:20 Bedside Glucose 91 Exam/Review of Systems Exam Vitals Vital Signs Date Temp Pulse Resp B/P (MAP) Pulse Ox O2 O2 Flow FiO2 Time Delivery Rate 02/10/19 98.5 72 20 115/65 98 07:53 (82) 02/08/19 Room Air 14:09 02/06/19 2.0 23:30 Intake and Output 02/09/19 02/09/19 02/10/19 1515:00 23:00 07:00 IntakeIntake Total 1050 ml 620 ml 600 ml OutputOutput Total 950 ml 1050 ml 700 ml BalanceBalance 100 ml -430 ml -100 ml Results Results 24hrs Laboratory Tests Test 02/09/19 12:52 02/09/19 17:36 02/09/19 20:57 02/10/19 05:14 Bedside Glucose 225 H 179 174 White Blood Count 7.5 Red Blood Count 3.23 L Hemoglobin 9.9 L Hematocrit 28.3 L Mean Corpuscular 87.6 Volume Mean Corpuscular 30.7 Hemoglobin Mean Corpuscular 35.0 Hemoglobin Concent Red Cell 13.0 Distribution Width Platelet Count 215 Mean Platelet Volume 9.4 Immature 0.300 Granulocytes % Neutrophils % 50.0 Lymphocytes % 29.5 Monocytes % 15.3 H Eosinophils % 4.4 Basophils % 0.5 Nucleated Red Blood 0.0 Cells % Immature 0.020 Granulocytes # Neutrophils # 3.8 Lymphocytes # 2.2 Monocytes # 1.2 H Eosinophils # 0.3 Basophils # 0.0 Nucleated Red Blood 0.0 Cells # Sodium Level 135 Potassium Level 4.4 Chloride Level 96 L Carbon Dioxide Level 29 Anion Gap 10 Blood Urea Nitrogen 22 H Creatinine 1.21 Est Glomerular > 60 Filtrat Rate mL/min Glucose Level 96 Calcium Level 9.3 Phosphorus Level 3.9 Magnesium Level 1.7 Total Bilirubin 1.1 Direct Bilirubin 0.00 Indirect Bilirubin 1.1 Aspartate Amino 14 L Transf (AST/SGOT) Alanine 22 Aminotransferase (AL T/SGPT) Alkaline Phosphatase 46 Total Protein 7.2 Albumin 3.7 Globulin 3.50 H Albumin/Globulin 1.05 Ratio Thyroid Stimulating 1.530 Hormone (TSH) Test 02/10/19 08:20 Bedside Glucose 91 Medications Medication Current Medications Atorvastatin Calcium (Lipitor) 20 mg QHS PO Last administered on 02/09/19 20:55; Admin Dose 20 MG; Start 02/07/19 at 21:00 Gabapentin (Neurontin) 100 mg TID PO Last administered on 02/10/19 08:26; Admin Dose 100 MG; Start 02/07/19 at 09:00 IV Flush (NS 3 ml) 3 ml PER PROTOCOL IV ; Start 02/06/19 at 22:30 Ondansetron HCl (Zofran Inj) 4 mg Q6H PRN IV NAUSEA/VOMITING; Start 02/06/19 at 22:30 Acetaminophen (Tylenol Tab) 650 mg Q6H PRN PO .PAIN 1-3 OR TEMP Last administered on 02/10/19 01:49; Admin Dose 650 MG; Start 02/06/19 at 22:30 Acetaminophen/ Hydrocodone Bitart ([place] (5/325)) 1 tab Q6H PRN PO .MOD PAIN 4- 6 Last administered on 02/10/19 06:55; Admin Dose 1 TAB; Start 02/06/19 at 22:30 Morphine Sulfate (morphine) 2 mg Q4H PRN IV .SEVERE PAIN 7-10 Last administered on 02/08/19 14:12; Admin Dose 2 MG; Start 02/06/19 at 22:30 Docusate Sodium (Colace) 100 mg Q12H PRN PO .CONSTIPATION Last administered on 02/09/19 21:36; Admin Dose 100 MG; Start 02/06/19 at 22:30 Bisacodyl (Dulcolax) 5 mg DAILY PRN PO .CONSTIPATION Last administered on 02/10/19 06:06; Admin Dose 5 MG; Start 02/06/19 at 22:30 Aspirin (Aspirin) 81 mg DAILY PO Last administered on 02/10/19 08:26; Admin Dose 81 MG; Start 02/07/19 at 09:00 Diagnostic Test (Pha) (Accu-Chek) 1 ea 02 XX Last administered on 02/09/19 02:00; Admin Dose 1 EA; Start 02/08/19 at 02:00 Insulin Aspart (Novolog Insulin Pen) NOVOLOG *MILD* ALGORITHM WITH MEALS BEDTIME SC Last administered on 02/09/19at 17:42; Admin Dose 1 UNIT; Start 02/07/19 at 08:00 Miscellaneous Information 1 ea NOTE XX ; Start 02/07/19 at 05:00 Glucose (Glutose) 15 gm Q15M PRN PO DECREASED GLUCOSE; Start 02/07/19 at 05:00 Glucose (Glutose) 22.5 gm Q15M PRN PO DECREASED GLUCOSE; Start 02/07/19 at 05:00 Dextrose (D50w Syringe) 25 ml Q15M PRN IV DECREASED GLUCOSE; Start 02/07/19 at 05:00 Dextrose (D50w Syringe) 50 ml Q15M PRN IV DECREASED GLUCOSE; Start 02/07/19 at 05:00 Glucagon (Glucagen) 1 mg Q15M PRN IM DECREASED GLUCOSE; Start 02/07/19 at 05:00 Glucose (Glutose) 15 gm Q15M PRN BUCCAL DECREASED GLUCOSE; Start 02/07/19 at 05:00 Enoxaparin Sodium (Lovenox) 40 mg DAILY SC Last administered on 02/10/19at 08:26 ; Admin Dose 40 MG; Start 02/08/19 at 09:00 Insulin Glargine (Lantus) 18 units QHS SC Last administered on 02/09/19at 21:00; Admin Dose 18 UNITS; Start 02/09/19 at 21:00 Insulin Aspart (Novolog Insulin Pen) 6 unit AC MEALS SC Last administered on 02/10/19at 08:23; Admin Dose 6 UNIT; Start 02/09/19 at 17:30 Lactobacillus Acidophilus/ Rhamnosus (Culturelle) 1 cap BID PO Last administered on 02/10/19at 08:26; Admin Dose 1 CAP; Start 02/09/19 at 21:00 Piperacillin Sod/ Tazobactam Sod 100 ml @ 200 mls/hr Q8 IVPB Last administered on 02/10/19at 06:06; Admin Dose 200 MLS/HR; Start 02/09/19 at 22:00 ABHI DEVLIN MD Feb 10, 2019 10:34
--- NOTE | 2019-02-10 10:37 | DS ---
Date/Time of Note Date/Time of Note DATE: 02/10/19 TIME: 10:35 Discharge Summary Admission/Discharge Info Admit Date/Time Feb 06, 2019 at 14:26 Discharge Date/Time Patient Condition: Stable Consults Dr. Cely Alva Procedures PROCEDURE: XR Ankle. CLINICAL INDICATION: Right ankle pain. TECHNIQUE: 3 views of the right ankle were performed. COMPARISON: 12/18/2018 FINDINGS: An external fixator device is seen. Neuropathic changes are seen in the midfoot. Orthopedic pins are seen. Vascular calcifications are seen. No acute displaced fracture or dislocation is identified. Hyperdensity is seen in the midfoot which may correspond to antibiotic beads. The ankle mortise is intact. The soft tissues are unremarkable. Dorsal and plantar calcaneal spurs are seen. IMPRESSION: Acute postsurgical changes in the midfoot including antibiotic beads as described above. Rick Jacobsen Physician Date Time Chest x-ray: No acute process Blood urine cultures preliminary negative Hx of Present Illness 58-year-old gentleman admitted for elective surgery for Charcot foot Hospital Course Hospitalist coverage/hospital course Assessment and plan 1. Rt Charcot foot sp surgery, stable cont nwb status 2. Chronic diabetic associated neuropathy 3. Chronic type 2 diabetes 4. Debility: Plan to transfer to [facility]. 5. Dyslipidemia 6. Past tobacco 7. Left TMA status 8. Postop fever? Checked urine culture. cxr is ok. [facility]. If able to use peripheral IV at [facility], we can discharge him today. Subjective: Events noted pain controlled. Intermittent fever presently improved. Sniff bed arranged. Objective: Vital signs stable; fever improved Physical exam No pallor Regular Clear Benign overweight Left TMA status; right foot CDI Home Meds Active Scripts [Insulin Glargine] 100 UNITS/ML SOLN No Conflict Check, 18 UNITS SC QHS for 7 Days Prov:ABHI DEVLIN MD 02/10/19 Insulin Aspart* (Novolog Insulin Pen*) 100 Unit/Ml Soln, 6 UNIT SC AC MEALS for 7 Days Prov:ABHI DEVLIN MD 02/10/19 Lactobacillus Rhamnosus GG (Culturelle) 1 Each Capsule, 1 CAP PO BID for 30 Days, CAP Prov:ABHI DEVLIN MD 02/10/19 Docusate Sodium* (Colace*) 100 Mg Capsule, 100 MG PO Q12H PRN for .CONSTIPATION for 7 Days, CAP Prov:ABHI DEVLIN MD 02/10/19 Enoxaparin Sodium* (Enoxaparin Sodium*) 40 Mg/0.4 Ml Syringe, 40 MG SC DAILY for 10 Days Prov:ABHI DEVLIN MD 02/10/19 Reported Medications Tamsulosin Hcl* (Tamsulosin Hcl*) 0.4 Mg Cap.er.24h, 0.4 MG PO DAILY, CAP 11/14/18 Atorvastatin Calcium* (Atorvastatin Calcium*) 20 Mg Tablet, 20 MG PO QHS, #30 TAB 11/14/18 Metoclopramide Hcl* (Metoclopramide Hcl*) 5 Mg Tablet, 5 MG PO BID PRN for NAUSEA AND OR VOMITING, TAB 11/14/18 Aspirin* (Aspirin* Chew) 81 Mg Tab.chew, 81 MG PO DAILY, TAB.CHEW 04/16/18 Gabapentin* (Gabapentin*) 100 Mg Capsule, 100 MG PO TID, #90 CAP 04/16/18 Discontinued Reported Medications Metformin Hcl* (Metformin Hcl*) 1,000 Mg Tablet, 1000 MG PO WITH BREAKFAST DINNE, #60 TAB 01/29/19 Insulin Glargine,Hum.rec.anlog (Basaglar Kwikpen U-100) 100 Unit/1 Ml Insuln.pen, 45 UNIT SC QHS, EA 11/14/18 [Admelog] No Conflict Check, 15 UNITS SUBCUTANE* AC MEALS 08/06/18 Follow-up Plan PCP & Podiatry 1-2wks Dr Alva 2wks/ prn Primary Care Provider [facility] Time spent on discharge: > 30 minutes Pending Labs Laboratory Tests Test 02/09/19 12:52 02/09/19 17:36 02/09/19 20:57 02/10/19 05:14 Bedside 225 179 174 Glucose mg/dL (70-220) mg/dL (70-220) mg/dL (70-220) White Blood 7.5 Count 10^3/ul (4.8-1 0.8) Red Blood 3.23 Count 10^6/ul (4.70- 6.10) Hemoglobin 9.9 g/dl (14.0-18. 0) Hematocrit 28.3 % (42.0-52.0) Mean 87.6 Corpuscular fl (82.0-101.0 Volume ) Mean 30.7 Corpuscular pg (29.0-33.0) Hemoglobin Mean 35.0 Corpuscular g/dl (32.0-37. Hemoglobin Conc 0) ent Red Cell 13.0 Distribution % (11.5-14.5) Width Platelet Count 215 10^3/UL (140-4 15) Mean Platelet 9.4 Volume fl (7.4-10.4) Immature 0.300 Granulocytes % % (0.001-0.429 ) Neutrophils % 50.0 % (39.0-77.0) Lymphocytes % 29.5 % (15.0-51.0) Monocytes % 15.3 % (0.0-11.0) Eosinophils % 4.4 % (0.0-7.0) Basophils % 0.5 % (0.0-2.0) Nucleated Red 0.0 Blood Cells % /100WBC (0.0-0 .0) Immature 0.020 Granulocytes # 10^3/ul (0.0-0 .031) Neutrophils # 3.8 10^3/ul (1.6-7 .5) Lymphocytes # 2.2 10^3/ul (0.8-2 .9) Monocytes # 1.2 10^3/ul (0.3-0 .9) Eosinophils # 0.3 10^3/ul (0.0-0 .5) Basophils # 0.0 10^3/ul (0.0-0 .1) Nucleated Red 0.0 Blood Cells # 10^3/ul (0.0-0 .0) Sodium Level 135 mmol/L (135-14 4) Potassium 4.4 Level mmol/L (3.5-5. 1) Chloride Level 96 mmol/L (97-110 ) Carbon Dioxide 29 Level mmol/L (21-31) Anion Gap 10 (5-13) Blood Urea 22 Nitrogen mg/dl (7-20) Creatinine 1.21 mg/dl (0.61-1. 24) Est Glomerular > 60 Filtrat mL/min (>60) Rate mL/min Glucose Level 96 mg/dl (70-220) Calcium Level 9.3 mg/dl (8.4-10. 2) Phosphorus 3.9 Level mg/dl (2.5-4.9 ) Magnesium 1.7 Level mg/dl (1.7-2.5 ) Total 1.1 Bilirubin mg/dl (0.2-1.3 ) Direct 0.00 Bilirubin mg/dl (0.00-0. 20) Indirect 1.1 Bilirubin mg/dl (0-1.1) Aspartate Amino 14 Transf (AST/SGO IU/L (15-46) T) Alanine 22 Aminotransferas IU/L (13-69) e (ALT/SGPT) Alkaline 46 Phosphatase IU/L (42-121) Total Protein 7.2 g/dl (6.1-8.1) Albumin 3.7 g/dl (3.3-4.9) Globulin 3.50 g/dl (1.3-3.2) Albumin/Globuli 1.05 n Ratio Thyroid 1.530 Stimulating MIU/L (0.465-4 Hormone (TSH) .680) Test 02/10/19 08:20 Bedside 91 Glucose mg/dL (70-220) ABHI DEVLIN MD Feb 10, 2019 10:37
--- NOTE | 2019-02-10 12:07 | CONS ---
Assessment/Plan Assessment/Plan Assessment/Plan (Daily) Right lower extremity charcot neuropathy Right foot hammertoes DM2 with peripheral neuropathy Hx of left foot TMA Plan Dressings were bolstered and to remain clean dry and intact. Do not bear weight to the right lower extremity. Patient planned for SNF placement to [facility] case management input. PT/OT on board. Tight glycemic control. Continue IV abx. Consultation Date/Type/Reason Admit Date/Time Feb 06, 2019 at 14:26 Initial Consult Date Date/Time of Note DATE: 02/10/19 TIME: 12:06 24 HR Interval Summary Free Text/Dictation No acute events overnight. Exam/Review of Systems Exam Vitals Vital Signs Date Temp Pulse Resp B/P (MAP) Pulse Ox O2 O2 Flow FiO2 Time Delivery Rate 02/10/19 98.5 72 20 115/65 98 07:53 (82) 02/08/19 Room Air 14:09 02/06/19 2.0 23:30 Intake and Output 02/09/19 02/09/19 02/10/19 1515:00 23:00 07:00 IntakeIntake Total 1050 ml 620 ml 600 ml OutputOutput Total 950 ml 1050 ml 700 ml BalanceBalance 100 ml -430 ml -100 ml Exam Ex-fix in alignment without hardware failure Incision sites well approximated without gapping No drainage from pin sites No pain with pin sites and surgical site Results Result Diagram: 02/10/19 0514 02/10/19 0514 Results 24hrs Laboratory Tests Test 02/09/19 12:52 02/09/19 17:36 02/09/19 20:57 02/10/19 05:14 Bedside Glucose 225 H 179 174 White Blood Count 7.5 Red Blood Count 3.23 L Hemoglobin 9.9 L Hematocrit 28.3 L Mean Corpuscular 87.6 Volume Mean Corpuscular 30.7 Hemoglobin Mean Corpuscular 35.0 Hemoglobin Concent Red Cell 13.0 Distribution Width Platelet Count 215 Mean Platelet Volume 9.4 Immature 0.300 Granulocytes % Neutrophils % 50.0 Lymphocytes % 29.5 Monocytes % 15.3 H Eosinophils % 4.4 Basophils % 0.5 Nucleated Red Blood 0.0 Cells % Immature 0.020 Granulocytes # Neutrophils # 3.8 Lymphocytes # 2.2 Monocytes # 1.2 H Eosinophils # 0.3 Basophils # 0.0 Nucleated Red Blood 0.0 Cells # Sodium Level 135 Potassium Level 4.4 Chloride Level 96 L Carbon Dioxide Level 29 Anion Gap 10 Blood Urea Nitrogen 22 H Creatinine 1.21 Est Glomerular > 60 Filtrat Rate mL/min Glucose Level 96 Calcium Level 9.3 Phosphorus Level 3.9 Magnesium Level 1.7 Total Bilirubin 1.1 Direct Bilirubin 0.00 Indirect Bilirubin 1.1 Aspartate Amino 14 L Transf (AST/SGOT) Alanine 22 Aminotransferase (AL T/SGPT) Alkaline Phosphatase 46 Total Protein 7.2 Albumin 3.7 Globulin 3.50 H Albumin/Globulin 1.05 Ratio Thyroid Stimulating 1.530 Hormone (TSH) Test 02/10/19 08:20 Bedside Glucose 91 Medications Medication Current Medications Atorvastatin Calcium (Lipitor) 20 mg QHS PO Last administered on 02/09/19 20:55; Admin Dose 20 MG; Start 02/07/19 at 21:00 Gabapentin (Neurontin) 100 mg TID PO Last administered on 02/10/19 08:26; Admin Dose 100 MG; Start 02/07/19 at 09:00 IV Flush (NS 3 ml) 3 ml PER PROTOCOL IV ; Start 02/06/19 at 22:30 Ondansetron HCl (Zofran Inj) 4 mg Q6H PRN IV NAUSEA/VOMITING; Start 02/06/19 at 22:30 Acetaminophen (Tylenol Tab) 650 mg Q6H PRN PO .PAIN 1-3 OR TEMP Last administered on 02/10/19 01:49; Admin Dose 650 MG; Start 02/06/19 at 22:30 Acetaminophen/ Hydrocodone Bitart ([place] (5/325)) 1 tab Q6H PRN PO .MOD PAIN 4- 6 Last administered on 02/10/19 06:55; Admin Dose 1 TAB; Start 02/06/19 at 22:30 Morphine Sulfate (morphine) 2 mg Q4H PRN IV .SEVERE PAIN 7-10 Last administered on 02/08/19 14:12; Admin Dose 2 MG; Start 02/06/19 at 22:30 Docusate Sodium (Colace) 100 mg Q12H PRN PO .CONSTIPATION Last administered on 02/09/19 21:36; Admin Dose 100 MG; Start 02/06/19 at 22:30 Bisacodyl (Dulcolax) 5 mg DAILY PRN PO .CONSTIPATION Last administered on 02/10/19at 06:06; Admin Dose 5 MG; Start 02/06/19 at 22:30 Aspirin (Aspirin) 81 mg DAILY PO Last administered on 02/10/19 08:26; Admin Dose 81 MG; Start 02/07/19 at 09:00 Diagnostic Test (Pha) (Accu-Chek) 1 ea 02 XX Last administered on 02/09/19at 02:00; Admin Dose 1 EA; Start 02/08/19 at 02:00 Insulin Aspart (Novolog Insulin Pen) NOVOLOG *MILD* ALGORITHM WITH MEALS BEDTIME SC Last administered on 02/09/19 17:42; Admin Dose 1 UNIT; Start 02/07/19 at 08:00 Miscellaneous Information 1 ea NOTE XX ; Start 02/07/19 at 05:00 Glucose (Glutose) 15 gm Q15M PRN PO DECREASED GLUCOSE; Start 02/07/19 at 05:00 Glucose (Glutose) 22.5 gm Q15M PRN PO DECREASED GLUCOSE; Start 02/07/19 at 05:00 Dextrose (D50w Syringe) 25 ml Q15M PRN IV DECREASED GLUCOSE; Start 02/07/19 at 05:00 Dextrose (D50w Syringe) 50 ml Q15M PRN IV DECREASED GLUCOSE; Start 02/07/19 at 05:00 Glucagon (Glucagen) 1 mg Q15M PRN IM DECREASED GLUCOSE; Start 02/07/19 at 05:00 Glucose (Glutose) 15 gm Q15M PRN BUCCAL DECREASED GLUCOSE; Start 02/07/19 at 05:00 Enoxaparin Sodium (Lovenox) 40 mg DAILY SC Last administered on 02/10/19 08:26; Admin Dose 40 MG; Start 02/08/19 at 09:00 Insulin Glargine (Lantus) 18 units QHS SC Last administered on 02/09/19 21:00; Admin Dose 18 UNITS; Start 02/09/19 at 21:00 Insulin Aspart (Novolog Insulin Pen) 6 unit AC MEALS SC Last administered on 02/10/19 08:23; Admin Dose 6 UNIT; Start 02/09/19 at 17:30 Lactobacillus Acidophilus/ Rhamnosus (Culturelle) 1 cap BID PO Last admi nistered on 3/12/19at 08:26; Admin Dose 1 CAP; Start 02/09/19 at 21:00 Piperacillin Sod/ Tazobactam Sod 100 ml @ 200 mls/hr Q8 IVPB Last administered on 02/10/19at 06:06; Admin Dose 200 MLS/HR; Start 02/09/19 at 22:00 ML ROSALES DPM Feb 10, 2019 12:07
[2019-02-10 14:36] VITALS: BP 154/77; PULSE 77; RESP 20
[2019-02-10] MEDS: DOCUSATE SODIUM 100 MG CAP PO PRN (15:59)
[2019-02-10] MEDS ORDERED: MAGNESIUM HYDROXIDE 30ML CUP PO ONE (16:30)
[2019-02-10 18:15] VITALS: BP 152/81; PULSE 76; RESP 16
--- NOTE | 2019-02-10 18:51 | CONS ---
Assessment/Plan Assessment/Plan Hospital Course (Demo Recall) No acute changes overnight patient looks comfortable and afebrile with a T-max last night 101.6 WBC 7.5 platelets 215 no shift no bands BUN 22 creatinine 1.21 Chest x-ray this morning revealed no evidence of acute cardiopulmonary disease PHYSICAL EXAMINATION: GENERAL: This is well-developed, well-nourished, middle-aged man who is alert, in no distress. HEENT: Head is atraumatic, normocephalic. Sclerae are anicteric. Buccal mucosa is pink. NECK: Supple. CHEST: Rise symmetrical. Breath sounds diminished to bases. HEART: S1, S2. ABDOMEN: Soft. Bowel tones are present. EXTREMITIES: With right lower extremity wrapped and presence of external fixator. Assessment: 1. Ongoing fevers, patient does not look septic, chest x-ray negative, blood cultures negative 2. Right foot Charcot foot status post surgical intervention, postop day #4 3. Diabetes with diabetic neuropathy 4. Anemia Plan: Patient is stable does not look septic, change antibiotics back to Ancef and continue as per podiatry recommendations for 7 days, if patient spikes fever we will reculture him, we will will also order urine culture Consultation Date/Type/Reason Admit Date/Time Feb 06, 2019 at 14:26 Initial Consult Date Type of Consult id Date/Time of Note DATE: 02/10/19 TIME: 18:48 Exam/Review of Systems Exam Vitals Vital Signs Date Temp Pulse Resp B/P (MAP) Pulse Ox O2 O2 Flow FiO2 Time Delivery Rate 02/10/19 76 16 152/81 97 Room Air 18:15 (104) 02/10/19 98.4 14:36 02/06/19 2.0 23:30 Intake and Output 02/09/19 02/09/19 02/10/19 1515:00 23:00 07:00 IntakeIntake Total 1050 ml 620 ml 600 ml OutputOutput Total 950 ml 1050 ml 700 ml BalanceBalance 100 ml -430 ml -100 ml Results Result Diagram: 02/10/19 0514 02/10/19 0514 Results 24hrs Laboratory Tests Test 02/09/19 20:57 02/10/19 05:14 02/10/19 08:20 02/10/19 12:57 Bedside Glucose 174 91 221 H White Blood Count 7.5 Red Blood Count 3.23 L Hemoglobin 9.9 L Hematocrit 28.3 L Mean Corpuscular 87.6 Volume Mean Corpuscular 30.7 Hemoglobin Mean Corpuscular 35.0 Hemoglobin Concent Red Cell 13.0 Distribution Width Platelet Count 215 Mean Platelet Volume 9.4 Immature 0.300 Granulocytes % Neutrophils % 50.0 Lymphocytes % 29.5 Monocytes % 15.3 H Eosinophils % 4.4 Basophils % 0.5 Nucleated Red Blood 0.0 Cells % Immature 0.020 Granulocytes # Neutrophils # 3.8 Lymphocytes # 2.2 Monocytes # 1.2 H Eosinophils # 0.3 Basophils # 0.0 Nucleated Red Blood 0.0 Cells # Sodium Level 135 Potassium Level 4.4 Chloride Level 96 L Carbon Dioxide Level 29 Anion Gap 10 Blood Urea Nitrogen 22 H Creatinine 1.21 Est Glomerular > 60 Filtrat Rate mL/min Glucose Level 96 Calcium Level 9.3 Phosphorus Level 3.9 Magnesium Level 1.7 Total Bilirubin 1.1 Direct Bilirubin 0.00 Indirect Bilirubin 1.1 Aspartate Amino 14 L Transf (AST/SGOT) Alanine 22 Aminotransferase (AL T/SGPT) Alkaline Phosphatase 46 Total Protein 7.2 Albumin 3.7 Globulin 3.50 H Albumin/Globulin 1.05 Ratio Thyroid Stimulating 1.530 Hormone (TSH) Test 02/10/19 17:29 Bedside Glucose 179 Medications Medication Current Medications Atorvastatin Calcium (Lipitor) 20 mg QHS PO Last administered on 02/09/19 20 :55; Admin Dose 20 MG; Start 02/07/19 at 21:00 Gabapentin (Neurontin) 100 mg TID PO Last administered on 02/10/19 13:02; Admin Dose 100 MG; Start 02/07/19 at 09:00 IV Flush (NS 3 ml) 3 ml PER PROTOCOL IV ; Start 02/06/19 at 22:30 Ondansetron HCl (Zofran Inj) 4 mg Q6H PRN IV NAUSEA/VOMITING; Start 02/06/19 at 22:30 Acetaminophen (Tylenol Tab) 650 mg Q6H PRN PO .PAIN 1-3 OR TEMP Last administered on 02/10/19 01:49; Admin Dose 650 MG; Start 02/06/19 at 22:30 Acetaminophen/ Hydrocodone Bitart ([place] (5/325)) 1 tab Q6H PRN PO .MOD PAIN 4- 6 Last administered on 02/10/19 13:02; Admin Dose 1 TAB; Start 02/06/19 at 22:30 Morphine Sulfate (morphine) 2 mg Q4H PRN IV .SEVERE PAIN 7-10 Last administered on 02/08/19 14:12; Admin Dose 2 MG; Start 02/06/19 at 22:30 Docusate Sodium (Colace) 100 mg Q12H PRN PO .CONSTIPATION Last administered on 02/10/19 15:59; Admin Dose 100 MG; Start 02/06/19 at 22:30 Bisacodyl (Dulcolax) 5 mg DAILY PRN PO .CONSTIPATION Last administered on 02/10/19 06:06; Admin Dose 5 MG; Start 02/06/19 at 22:30 Aspirin (Aspirin) 81 mg DAILY PO Last administered on 02/10/19 08:26; Admin Dose 81 MG; Start 02/07/19 at 09:00 Diagnostic Test (Pha) (Accu-Chek) 1 ea 02 XX Last administered on 02/09/19 02:00; Admin Dose 1 EA; Start 02/08/19 at 02:00 Insulin Aspart (Novolog Insulin Pen) NOVOLOG *MILD* ALGORITHM WITH MEALS BEDTIME SC Last administered on 02/10/19 17:31; Admin Dose 1 UNIT; Start 02/07/19 at 08:00 Miscellaneous Information 1 ea NOTE XX ; Start 02/07/19 at 05:00 Glucose (Glutose) 15 gm Q15M PRN PO DECREASED GLUCOSE; Start 02/07/19 at 05:00 Glucose (Glutose) 22.5 gm Q15M PRN PO DECREASED GLUCOSE; Start 02/07/19 at 05:00 Dextrose (D50w Syringe) 25 ml Q15M PRN IV DECREASED GLUCOSE; Start 02/07/19 at 05:00 Dextrose (D50w Syringe) 50 ml Q15M PRN IV DECREASED GLUCOSE; Start 02/07/19 at 05:00 Glucagon (Glucagen) 1 mg Q15M PRN IM DECREASED GLUCOSE; Start 02/07/19 at 05:00 Glucose (Glutose) 15 gm Q15M PRN BUCCAL DECREASED GLUCOSE; Start 02/07/19 at 05:00 Enoxaparin Sodium (Lovenox) 40 mg DAILY SC Last administered on 02/10/19 08:26; Admin Dose 40 MG; Start 02/08/19 at 09:00 Insulin Glargine (Lantus) 18 units QHS SC Last administered on 02/09/19at 21:00; Admin Dose 18 UNITS; Start 02/09/19 at 21:00 Insulin Aspart (Novolog Insulin Pen) 6 unit AC MEALS SC Last administered on 02/10/19at 17:31; Admin Dose 6 UNIT; Start 02/09/19 at 17:30 Lactobacillus Acidophilus/ Rhamnosus (Culturelle) 1 cap BID PO Last administered on 02/10/19at 08:26; Admin Dose 1 CAP; Start 02/09/19 at 21:00 Piperacillin Sod/ Tazobactam Sod 100 ml @ 200 mls/hr Q8 IVPB Last administered on 02/10/19 13:24; Admin Dose 200 MLS/HR; Start 02/09/19 at 22:00 IRIS SANTIZO NP Feb 10, 2019 18:51
[2019-02-10 20:16] VITALS: BP 165/78; PULSE 79; RESP 16
[2019-02-10] MEDS: ATORVASTATIN 20 MG TAB PO SCH (21:01)
[2019-02-10] MEDS: INSULIN GLARGINE [LANTus] (100 UNITS/ML) SYG SC SCH (21:08)
[2019-02-10] MEDS: CEFAZOLIN 1 GM/50 ML (PMX) 50 ML IVPB SCH (21:09)
[2019-02-11] VITALS (9 sets, daily range): BP systolic 117–180; BP diastolic 61–80; PULSE 51–76; RESP 16–18
[2019-02-11] MEDS: ACCU-CHEK XX SCH (02:00)
[2019-02-11] MEDS: BISACODYL (EC) 5 MG TAB PO PRN (06:05)
[2019-02-11] MEDS: CEFAZOLIN 1 GM/50 ML (PMX) 50 ML IVPB SCH ×3 (06:05→22:05)
[2019-02-11] MEDS: HYDROCODONE/APAP (5/325) TAB PO PRN ×2 (06:07→11:18)
[2019-02-11] MEDS: INSULIN ASPART [NOVOLOG] 3 ML PEN SC SCH ×7 (08:02→20:41)
[2019-02-11] MEDS: ASPIRIN 81 MG TAB PO SCH (08:59)
[2019-02-11] MEDS: LACTOBACILLUS RHAMNOSUS CAP PO SCH ×2 (08:59→20:35)
[2019-02-11] MEDS: GABAPENTIN 100 MG CAP PO SCH ×3 (09:00→20:35)
[2019-02-11] MEDS: ENOXAPARIN 40 MG/0.4 ML SYG SC SCH (09:02)
--- NOTE | 2019-02-11 09:38 | CONS ---
Assessment/Plan Assessment/Plan Hospital Course (Demo Recall) No acute changes overnight, no fevers Bld cx remain negative, urine x pending Abx: Ancef PHYSICAL EXAMINATION: GENERAL: This is well-developed, well-nourished, middle-aged man who is alert, in no distress. HEENT: Head is atraumatic, normocephalic. Sclerae are anicteric. Buccal mucosa is pink. NECK: Supple. CHEST: Rise symmetrical. Breath sounds diminished to bases. HEART: S1, S2. ABDOMEN: Soft. Bowel tones are present. EXTREMITIES: With right lower extremity wrapped and presence of external fixator. Assessment: 1. Ongoing fevers===> chest x-ray negative, blood cultures negative 2. Right foot Charcot foot status post surgical intervention, postop day #5 3. Diabetes with diabetic neuropathy 4. Anemia Plan: Remains stable, on Ancef post-op for total of 7 days, s/p Zosyn, no fevers over night, f/u urine cx, podiatry rec-s Consultation Date/Type/Reason Admit Date/Time Feb 06, 2019 at 14:26 Initial Consult Date Type of Consult id Date/Time of Note DATE: 02/11/19 TIME: 09:36 Exam/Review of Systems Exam Vitals Vital Signs Date Temp Pulse Resp B/P (MAP) Pulse Ox O2 O2 Flow FiO2 Time Delivery Rate 02/11/19 98.3 74 16 117/61 97 07:23 (79) 02/10/19 Room Air 18:15 Intake and Output 02/10/19 02/10/19 02/11/19 1515:00 23:00 07:00 IntakeIntake Total 860 ml 530 ml 50 ml OutputOutput Total 1800 ml 1700 ml 1150 ml BalanceBalance -940 ml -1170 ml -1100 ml Results Result Diagram: 02/10/19 0514 02/10/19 0514 Results 24hrs Laboratory Tests Test 02/10/19 12:57 02/10/19 17:29 02/10/19 20:59 02/11/19 02:40 Bedside Glucose 221 H 179 287 H 229 H Test 02/11/19 07:57 Bedside Glucose 154 Medications Medication Current Medications Atorvastatin Calcium (Lipitor) 20 mg QHS PO Last administered on 02/10/19at 21:01; Admin Dose 20 MG; Start 02/07/19 at 21:00 Gabapentin (Neurontin) 100 mg TID PO Last administered on 02/11/19 09:00; Admin Dose 100 MG; Start 02/07/19 at 09:00 IV Flush (NS 3 ml) 3 ml PER PROTOCOL IV ; Start 02/06/19 at 22:30 Ondansetron HCl (Zofran Inj) 4 mg Q6H PRN IV NAUSEA/VOMITING; Start 02/06/19 at 22:30 Acetaminophen (Tylenol Tab) 650 mg Q6H PRN PO .PAIN 1-3 OR TEMP Last administered on 02/10/19 01:49; Admin Dose 650 MG; Start 02/06/19 at 22:30 Acetaminophen/ Hydrocodone Bitart ([place] (5/325)) 1 tab Q6H PRN PO .MOD PAIN 4- 6 Last administered on 02/11/19 06:07; Admin Dose 1 TAB; Start 02/06/19 at 22:30 Morphine Sulfate (morphine) 2 mg Q4H PRN IV .SEVERE PAIN 7-10 Last administered on 02/08/19 14:12; Admin Dose 2 MG; Start 02/06/19 at 22:30 Docusate Sodium (Colace) 100 mg Q12H PRN PO .CONSTIPATION Last administered on 02/10/19 15:59; Admin Dose 100 MG; Start 02/06/19 at 22:30 Bisacodyl (Dulcolax) 5 mg DAILY PRN PO .CONSTIPATION Last administered on 02/11/19 06:05; Admin Dose 5 MG; Start 02/06/19 at 22:30 Aspirin (Aspirin) 81 mg DAILY PO Last administered on 02/11/19 08:59; Admin Dose 81 MG; Start 02/07/19 at 09:00 Diagnostic Test (Pha) (Accu-Chek) 1 ea 02 XX Last administered on 02/09/19 02:00; Admin Dose 1 EA; Start 02/08/19 at 02:00 Insulin Aspart (Novolog Insulin Pen) NOVOLOG *MILD* ALGORITHM WITH MEALS BEDTIME SC Last administered on 02/11/19 08:02; Admin Dose 1 UNIT; Start 02/07/19 at 08:00 Glucose (Glutose) 15 gm Q15M PRN PO DECREASED GLUCOSE; Start 02/07/19 at 05:00 Glucose (Glutose) 22.5 gm Q15M PRN PO DECREASED GLUCOSE; Start 02/07/19 at 05:00 Dextrose (D50w Syringe) 25 ml Q15M PRN IV DECREASED GLUCOSE; Start 02/07/19 at 05:00 Dextrose (D50w Syringe) 50 ml Q15M PRN IV DECREASED GLUCOSE; Start 02/07/19 at 05:00 Glucagon (Glucagen) 1 mg Q15M PRN IM DECREASED GLUCOSE; Start 02/07/19 at 05:00 Glucose (Glutose) 15 gm Q15M PRN BUCCAL DECREASED GLUCOSE; Start 02/07/19 at 05:00 Enoxaparin Sodium (Lovenox) 40 mg DAILY SC Last administered on 02/11/19 09:02; Admin Dose 40 MG; Start 02/08/19 at 09:00 Insulin Glargine (Lantus) 18 units QHS SC Last administered on 02/10/19at 21:08; Admin Dose 18 UNITS; Start 02/09/19 at 21:00 Insulin Aspart (Novolog Insulin Pen) 6 unit AC MEALS SC Last administered on 02/11/19at 08:02; Admin Dose 6 UNIT; Start 02/09/19 at 17:30 Lactobacillus Acidophilus/ Rhamnosus (Culturelle) 1 cap BID PO Last administered on 02/11/19at 08:59; Admin Dose 1 CAP; Start 02/09/19 at 21:00 Cefazolin Sodium 50 ml @ 100 mls/hr Q8 IVPB Last administered on 02/11/19 06:05; Admin Dose 100 MLS/HR; Start 02/10/19 at 22:00 IRIS SANTIZO NP Feb 11, 2019 09:38
--- NOTE | 2019-02-11 10:35 | DS ---
Date/Time of Note Date/Time of Note DATE: 02/11/19 TIME: 10:31 Discharge Summary Admission/Discharge Info Admit Date/Time Feb 06, 2019 at 14:26 Discharge Date/Time Consults Dr Cely Alva Procedures Hx of Present Illness 58-year-old gentleman admitted for elective surgery for Charcot foot Hospital Course Hospitalist coverage/hospital course Assessment and plan 1. Rt Charcot foot sp elective surgery, stable cont nwb status 2. Chronic diabetic associated neuropathy follow-up with podiatry 3. Chronic type 2 diabetes, adjust insulin coverage 4. Debility: Plan to transfer to [facility]. 5. Dyslipidemia 6. Past tobacco 7. Left TMA status 8. Postop fever? urine culture ordered. cxr is ok, 02/08 blood cultures are negative. 5 days IV ancef via peripheral IV okayed by snf. April follow-up on cultures [phone] Subjective: 02/10 events noted pain controlled. Intermittent fever presently improved. Sniff bed arranged. 02/11: No further fever overnight. Dysuria no dyspnea/cough, no diarrhea. Wound noted to be intact without any drainage and hardware is in place. Objective: Vital signs stable; fever improved Physical exam No pallor Regular Clear Benign overweight Left TMA status; right foot CDI From podiatry; Right lower extremity charcot neuropathy Right foot hammertoes DM2 with peripheral neuropathy Hx of left foot TMA Plan Dressings were bolstered and to remain clean dry and intact. Do not bear weight to the right lower extremity. Patient planned for SNF placement to [facility] in [place], appreciate case management input. PT/OT on board. Tight glycemic control. Continue IV abx. Home Meds Active Scripts [Insulin Glargine] 100 UNITS/ML SOLN No Conflict Check, 18 UNITS SC QHS for 7 Days Prov:ABHI DEVLIN MD 02/10/19 Insulin Aspart* (Novolog Insulin Pen*) 100 Unit/Ml Soln, 6 UNIT SC AC MEALS for 7 Days Prov:ABHI DEVLIN MD 02/10/19 Lactobacillus Rhamnosus GG (Culturelle) 1 Each Capsule, 1 CAP PO BID for 30 Days, CAP Prov:ABHI DEVLIN MD 02/10/19 Docusate Sodium* (Colace*) 100 Mg Capsule, 100 MG PO Q12H PRN for .CONSTIPATION for 7 Days, CAP Prov:ABHI DEVLIN MD 02/10/19 Enoxaparin Sodium* (Enoxaparin Sodium*) 40 Mg/0.4 Ml Syringe, 40 MG SC DAILY for 10 Days Prov:ABHI DEVLIN MD 02/10/19 Reported Medications Tamsulosin Hcl* (Tamsulosin Hcl*) 0.4 Mg Cap.er.24h, 0.4 MG PO DAILY, CAP 11/14/18 Atorvastatin Calcium* (Atorvastatin Calcium*) 20 Mg Tablet, 20 MG PO QHS, #30 TAB 11/14/18 Metoclopramide Hcl* (Metoclopramide Hcl*) 5 Mg Tablet, 5 MG PO BID PRN for NAUSEA AND OR VOMITING, TAB 11/14/18 Aspirin* (Aspirin* Chew) 81 Mg Tab.chew, 81 MG PO DAILY, TAB.CHEW 04/16/18 Gabapentin* (Gabapentin*) 100 Mg Capsule, 100 MG PO TID, #90 CAP 04/16/18 Discontinued Reported Medications Metformin Hcl* (Metformin Hcl*) 1,000 Mg Tablet, 1000 MG PO WITH BREAKFAST DINNE, #60 TAB 01/29/19 Insulin Glargine,Hum.rec.anlog (Indiraaglmaria ines García U-100) 100 Unit/1 Ml Insuln.pen, 45 UNIT SC QHS, EA 11/14/18 [Admelog] No Conflict Check, 15 UNITS SUBCUTANE* AC MEALS 08/06/18 Follow-up Plan PCP & Podiatry 1-2wks Dr Alva 2wks/ prn Primary Care Provider [facility] Time spent on discharge: > 30 minutes Pending Labs Laboratory Tests Test 02/10/19 12:57 02/10/19 17:29 02/10/19 20:59 02/11/19 02:40 Bedside 221 179 287 229 Glucose mg/dL (70-220) mg/dL (70-220) mg/dL (70-220) mg/dL (70-220) Test 02/11/19 07:57 Bedside 154 Glucose mg/dL (70-220) ABHI DEVLIN MD Feb 11, 2019 10:35
[2019-02-11] MEDS ORDERED: MAGNESIUM HYDROXIDE 30ML CUP PO ONE (12:00)
[2019-02-11] MEDS: morphine 2 MG INJ IV PRN (19:32)
[2019-02-11] MEDS: ATORVASTATIN 20 MG TAB PO SCH (20:35)
[2019-02-11] MEDS: INSULIN GLARGINE [LANTus] (100 UNITS/ML) SYG SC SCH (20:40)
[2019-02-11] MEDS: DOCUSATE SODIUM 100 MG CAP PO PRN (20:47)
[2019-02-12 01:26] VITALS: BP 135/68; PULSE 75; RESP 18
[2019-02-12] MEDS: ACCU-CHEK XX SCH (02:00)
[2019-02-12] MEDS: CEFAZOLIN 1 GM/50 ML (PMX) 50 ML IVPB SCH ×2 (05:36→16:25)
[2019-02-12 08:08] VITALS: BP 121/62; PULSE 77; RESP 17
[2019-02-12] MEDS: ASPIRIN 81 MG TAB PO SCH (08:19)
[2019-02-12] MEDS: GABAPENTIN 100 MG CAP PO SCH ×2 (08:19→12:16)
[2019-02-12] MEDS: LACTOBACILLUS RHAMNOSUS CAP PO SCH (08:19)
[2019-02-12] MEDS: HYDROCODONE/APAP (5/325) TAB PO PRN (08:20)
[2019-02-12] MEDS: INSULIN ASPART [NOVOLOG] 3 ML PEN SC SCH ×4 (08:23→12:27)
[2019-02-12] MEDS: ENOXAPARIN 40 MG/0.4 ML SYG SC SCH (08:25)
[2019-02-12] MEDS: morphine 2 MG INJ IV PRN (12:16)
[2019-02-12] MEDS: BISACODYL (EC) 5 MG TAB PO PRN (12:16)
[2019-02-12 15:14] VITALS: BP 136/74; PULSE 95; RESP 16
--- NOTE | 2019-02-12 16:01 | CONS ---
Assessment/Plan Assessment/Plan Hospital Course (Demo Recall) No acute changes overnight, patient is alert and feels good, no fevers Bld and urine culture negative Abx: Ancef PHYSICAL EXAMINATION: GENERAL: This is well-developed, well-nourished, middle-aged man who is alert, in no distress. HEENT: Head is atraumatic, normocephalic. Sclerae are anicteric. Buccal mucosa is pink. NECK: Supple. CHEST: Rise symmetrical. Breath sounds diminished to bases. HEART: S1, S2. ABDOMEN: Soft. Bowel tones are present. EXTREMITIES: With right lower extremity wrapped and presence of external fixator. Assessment: 1. Ongoing fevers===> chest x-ray negative, blood cultures negative 2. Right foot Charcot foot status post surgical intervention, postop day #5 3. Diabetes with diabetic neuropathy 4. Anemia Plan: Remains stable, on Ancef post-op for total of 7 days, follow podiatry rec- s Consultation Date/Type/Reason Admit Date/Time Feb 06, 2019 at 14:26 Initial Consult Date Type of Consult id Date/Time of Note DATE: 02/12/19 TIME: 16:00 Exam/Review of Systems Exam Vitals Vital Signs Date Temp Pulse Resp B/P (MAP) Pulse Ox O2 O2 Flow FiO2 Time Delivery Rate 02/12/19 97.6 95 16 136/74 98 15:14 (94) 02/11/19 Room Air 11:00 Intake and Output 02/11/19 02/11/19 02/12/19 1515:00 23:00 07:00 IntakeIntake Total 1120 ml 1340 ml 50 ml OutputOutput Total 1200 ml 1650 ml BalanceBalance -80 ml -310 ml 50 ml Results Result Diagram: 02/10/19 0514 02/10/19 0514 Results 24hrs Laboratory Tests Test 02/11/19 17:40 02/11/19 20:38 02/12/19 05:40 02/12/19 08:16 Bedside Glucose 169 162 170 166 Test 02/12/19 12:11 Bedside Glucose 259 H Medications Medication Current Medications Atorvastatin Calcium (Lipitor) 20 mg QHS PO Last administered on 02/11/19at 20:35; Admin Dose 20 MG; Start 02/07/19 at 21:00 Gabapentin (Neurontin) 100 mg TID PO Last administered on 02/12/19 12:16; Admin Dose 100 MG; Start 02/07/19 at 09:00 IV Flush (NS 3 ml) 3 ml PER PROTOCOL IV ; Start 02/06/19 at 22:30 Ondansetron HCl (Zofran Inj) 4 mg Q6H PRN IV NAUSEA/VOMITING; Start 02/06/19 at 22:30 Acetaminophen (Tylenol Tab) 650 mg Q6H PRN PO .PAIN 1-3 OR TEMP Last administered on 02/10/19 01:49; Admin Dose 650 MG; Start 02/06/19 at 22:30 Acetaminophen/ Hydrocodone Bitart ([place] (5/325)) 1 tab Q6H PRN PO .MOD PAIN 4- 6 Last administered on 02/12/19 08:20; Admin Dose 1 TAB; Start 02/06/19 at 22:30 Morphine Sulfate (morphine) 2 mg Q4H PRN IV .SEVERE PAIN 7-10 Last administered on 02/12/19 12:16; Admin Dose 2 MG; Start 02/06/19 at 22:30 Docusate Sodium (Colace) 100 mg Q12H PRN PO .CONSTIPATION Last administered on 02/11/19 20:47; Admin Dose 100 MG; Start 02/06/19 at 22:30 Bisacodyl (Dulcolax) 5 mg DAILY PRN PO .CONSTIPATION Last administered on 02/12/19 12:16; Admin Dose 5 MG; Start 02/06/19 at 22:30 Aspirin (Aspirin) 81 mg DAILY PO Last administered on 02/12/19 08:19; Admin Dose 81 MG; Start 02/07/19 at 09:00 Diagnostic Test (Pha) (Accu-Chek) 1 ea 02 XX Last administered on 02/09/19 02:00; Admin Dose 1 EA; Start 02/08/19 at 02:00 Insulin Aspart (Novolog Insulin Pen) NOVOLOG *MILD* ALGORITHM WITH MEALS BEDTIME SC Last administered on 02/12/19 12:27; Admin Dose 3 UNIT; Start 02/07/19 at 08:00 Glucose (Glutose) 15 gm Q15M PRN PO DECREASED GLUCOSE; Start 02/07/19 at 05:00 Glucose (Glutose) 22.5 gm Q15M PRN PO DECREASED GLUCOSE; Start 02/07/19 at 05:00 Dextrose (D50w Syringe) 25 ml Q15M PRN IV DECREASED GLUCOSE; Start 02/07/19 at 05:00 Dextrose (D50w Syringe) 50 ml Q15M PRN IV DECREASED GLUCOSE; Start 02/07/19 at 05:00 Glucagon (Glucagen) 1 mg Q15M PRN IM DECREASED GLUCOSE; Start 02/07/19 at 05:00 Glucose (Glutose) 15 gm Q15M PRN BUCCAL DECREASED GLUCOSE; Start 02/07/19 at 05:00 Enoxaparin Sodium (Lovenox) 40 mg DAILY SC Last administered on 02/12/19at 08:25; Admin Dose 40 MG; Start 02/08/19 at 09:00 Insulin Glargine (Lantus) 18 units QHS SC Last administered on 02/11/19at 20:40; Admin Dose 18 UNITS; Start 02/09/19 at 21:00 Insulin Aspart (Novolog Insulin Pen) 6 unit AC MEALS SC Last administered on 02/12/19at 12:27; Admin Dose 6 UNIT; Start 02/09/19 at 17:30 Lactobacillus Acidophilus/ Rhamnosus (Culturelle) 1 cap BID PO Last administered on 02/12/19at 08:19; Admin Dose 1 CAP; Start 02/09/19 at 21:00 Cefazolin Sodium 50 ml @ 100 mls/hr Q8 IVPB Last administered on 02/12/19at 05:36; Admin Dose 100 MLS/HR; Start 02/10/19 at 22:00 IRIS SANTIZO NP Feb 12, 2019 16:01
== END 2019-02-12 18:00 | DRG 42 ==
LOC: REC 14:26 → 2NE 22:17
PROVIDERS: ADMIT Podiatrist Foot & Ankle Surgery; ATTEND Internal Medicine
PROC: 0L8V0ZZ Division of Right Foot Tendon, Open Approach (ICD-10-PCS; 2019-02-06)
PROC: 0SRP0JZ Replacement of Right Toe Phalangeal Joint with Synthetic Substitute, Open Approach (ICD-10-PCS; 2019-02-06)
PROC: 0QHN35Z Insertion of External Fixation Device into Right Metatarsal, Percutaneous Approach (ICD-10-PCS; 2019-02-06)
PROC: 0QHG35Z Insertion of External Fixation Device into Right Tibia, Percutaneous Approach (ICD-10-PCS; 2019-02-06)
PROC: 0QHL35Z Insertion of External Fixation Device into Right Tarsal, Percutaneous Approach (ICD-10-PCS; 2019-02-06)
PROC: 0YP90YZ Removal of Other Device from Right Lower Extremity, Open Approach (ICD-10-PCS; 2019-02-06)
PROC: 0SGH07Z Fusion of Right Tarsal Joint with Autologous Tissue Substitute, Open Approach (ICD-10-PCS; principal; 2019-02-06 17:00)
DX: E11.610 Type 2 diabetes mellitus with diabetic neuropathic arthropathy (principal); M20.41 Other hammer toe(s) (acquired), right foot; E11.42 Type 2 diabetes mellitus with diabetic polyneuropathy; E11.319 Type 2 diabetes mellitus with unspecified diabetic retinopathy without macular edema; D63.8 Anemia in other chronic diseases classified elsewhere; E78.5 Hyperlipidemia, unspecified; H54.62 Unqualified visual loss, left eye, normal vision right eye; I10 Essential (primary) hypertension; N40.0 Benign prostatic hyperplasia without lower urinary tract symptoms; R53.81 Other malaise; R50.82 Postprocedural fever; Z89.432 Acquired absence of left foot; Z87.891 Personal history of nicotine dependence; Z79.4 Long term (current) use of insulin; Z79.02 Long term (current) use of antithrombotics/antiplatelets; Z79.82 Long term (current) use of aspirin
CPT/HCPCS: 71045; 73620; 73630; 80053; 80061; 82043; 82962; 83036; 83735; 84100; 84443; 85025; 87040; 87086; 97110; 97116; 97162; 97167; 97530; 97535; J0690; J1170; J1650; J1815; J2250; J2270; J2370; J2405; J2543; J2795; J3010; J3475; J7030

== ENCOUNTER 2019-05-28 11:10 | Day surgery (SDC) | payer MEDICARE, OTHER ==
[2019-05-28] VITALS (15 sets, daily range): BP systolic 98–167; BP diastolic 61–88; PULSE 89–100; RESP 16–18; Ht 180.3 cm; Wt 74.3 kg
[~2019-05-28] VITALS: Ht 180.3 cm; Wt 74.3 kg
[~2019-05-28 11:10] MED LIST changes: -ADMELOG SUBCUTANE*; +CEFAZOLIN 2 GM/50 ML (PMX) 50 ML IVPB ONE; -CEFAZOLIN 2 GM/50 ML (PMX) 50 ML IVPB SCH; +DOCU-144 PO; +ENOX40DI2 SC; -INSU100I33 SC; +Insulin Glargine SC; +LACT1CAP28 PO; -METF100010 PO; +NOVO3I SC
--- NOTE | 2019-05-28 12:56 | HPN ---
Date/Time of Note Date/Time of Note DATE: 05/28/19 TIME: 12:55 Interval H&P Admission Note Pt. seen H&P reviewed: No system changes ML ROSALES DPM May 28, 2019 12:56
--- NOTE | 2019-05-28 13:21 | PREAC ---
Date/Time of Note Date/Time of Note DATE: 05/28/19 TIME: : Anesthesia Eval and Record Evaluation Time Pre-Procedure Interview DATE: 05/28/19 TIME: 13:19 Age 58 Sex male NPO: 8 hrs Preoperative diagnosis ex fix right leg Planned procedure removal of ex fix Past Medical History Past Medical History: Includes Cardio: Dyslipidemia Endo: Diabetes Neuro: Peripheral neuropathy, Other (left eye blindness ) Musculoskeletal: Other (right foot partial amputation) Surgery & Anesthesia Issues No known issue Meds Anticoagulation: No Beta Cyndi within 24 hr: No Reason Beta Cyndi not given: Pt. not on B-Cyndi Active Scripts [Insulin Glargine] 100 UNITS/ML SOLN No Conflict Check, 18 UNITS SC QHS for 7 Days Prov:ABHI DEVLIN MD 02/10/19 Insulin Aspart* (Novolog Insulin Pen*) 100 Unit/Ml Soln, 6 UNIT SC AC MEALS for 7 Days Prov:ABHI DEVLIN MD 02/10/19 Lactobacillus Rhamnosus GG (Culturelle) 1 Each Capsule, 1 CAP PO BID for 30 Days, CAP Prov:ABHI DEVLIN MD 02/10/19 Docusate Sodium* (Colace*) 100 Mg Capsule, 100 MG PO Q12H PRN for .CONSTIPATION for 7 Days, CAP Prov:ABHI DEVLIN MD 02/10/19 Enoxaparin Sodium* (Enoxaparin Sodium*) 40 Mg/0.4 Ml Syringe, 40 MG SC DAILY for 10 Days Prov:ABHI DEVLIN MD 02/10/19 Reported Medications Tamsulosin Hcl* (Tamsulosin Hcl*) 0.4 Mg Cap.er.24h, 0.4 MG PO DAILY, CAP 11/14/18 Atorvastatin Calcium* (Atorvastatin Calcium*) 20 Mg Tablet, 20 MG PO QHS, #30 TAB 11/14/18 Metoclopramide Hcl* (Metoclopramide Hcl*) 5 Mg Tablet, 5 MG PO BID PRN for NAUSEA AND OR VOMITING, TAB 11/14/18 Aspirin* (Aspirin* Chew) 81 Mg Tab.chew, 81 MG PO DAILY, TAB.CHEW 04/16/18 Gabapentin* (Gabapentin*) 100 Mg Capsule, 100 MG PO TID, #90 CAP 04/16/18 Meds reviewed: Yes Allergies Coded Allergies: No Known Allergy (Unverified , 01/29/19) Allergies Reviewed: Yes Labs/Studies Labs Reviewed: Reviewed by anesthesiologist test: N/A Pre-procedure Exam Last vitals Vital Signs Date Temp Pulse Resp B/P (MAP) Pulse Ox O2 O2 Flow FiO2 Time Delivery Rate 05/28/19 97.8 93 16 98/61 (73) 96 Room Air 13:02 Airway: Adequate mouth opening, Adequate thyromental dist Mallampati: Mallampati III Teeth: Normal Lung: Normal Heart: Normal ASA Physical Status ASA physical status: 3 Emergency: None Pre-operative Attestations Prior to commencing anesthesia and surgery, the patient was re-evaluated, there was verification of: *The patient's identity *The results of appropriate recent lab work and preoperative vital signs *The above evaluation not changing prior to induction *Anesthetic plan, risk benefits, alternative and complications discussed with patient/family; questions answered; patient/family understands, accepts and wishes to proceed. MT POLK DO May 28, 2019 13:21
[2019-05-28] MEDS ORDERED: LIDOCAINE 2% (SDV) 5 ML INJ ONE (13:28)
[2019-05-28] MEDS ORDERED: PROPOFOL 20 ML ONE (13:28)
[2019-05-28] MEDS ORDERED: DESFLURANE 15 MIN ONE (13:28)
[2019-05-28] MEDS ORDERED: MIDAZOLAM 1 MG/ML 2 ML INJ ONE (13:29)
[2019-05-28] MEDS ORDERED: FENTAnyl 50 MCG/ML VIAL ONE (13:29)
[2019-05-28] MEDS ORDERED: HYDROmorphONE 1 MG/5 ML IV SYRINGE IV PRN ×3 (13:30)
[2019-05-28] MEDS ORDERED: ONDANSETRON 4 MG INJ IV PRN (13:30)
[2019-05-28] MEDS ORDERED: ROPIVACAINE 0.5 % 30 ML VIAL ONE (13:30)
[2019-05-28] MEDS ORDERED: CEFAZOLIN 1 GM INJ ONE (13:41)
[2019-05-28] MEDS ORDERED: ONDANSETRON 4 MG INJ ONE (14:15)
--- NOTE | 2019-05-28 14:33 | PDOCDIS ---
Discharge Instructions CONDITION [id number] Patient Condition: [id number] Stable HOME CARE INSTRUCTIONS: [id number] Diet Instructions: [id number] carbohydrate controlled diet ACTIVITY: [id number] Activity Restrictions: [id number] No Weight Bearing (non weight bearing to right lower extremity) FOLLOW UP/APPOINTMENTS Follow-up Plan follow up in [facility] wound center [facility] June 03 call for appointment ML ROSALES DPM May 28, 2019 14:33
--- NOTE | 2019-05-28 14:36 | OPR ---
Date/Time of Note Date/Time of Note DATE: 05/28/19 TIME: 14:36 Operative Report Preoperative Diagnosis Right lower extremity Charcot Neuroarthropathy DM2 with peripheral neuropathy Hx of amputation to right foot Retained external fixator right lower extremity Postoperative Diagnosis Right lower extremity Charcot Neuroarthropathy DM2 with peripheral neuropathy Hx of amputation to right foot Retained external fixator right lower extremity Operation/Procedure Performed Removal of external fixator Surgeon see signature line Logistics Coordinator none Anesthesia Type: general Estimated Blood Loss: 0 - 10 ml's Transfusion none Specimen none Grafts/Implants none Complications none Indications 58 y/o M patient with charcot neuroarthropathy with previous midfoot fusion and application of external fixator. Discussed with patient removal of external fixator and patient is amenable to the procedure. All of the patient's questions and concerns were addressed. No promises or guarantees were given. Procedure Description Patient was brought into the OR and placed in the supine position. A formal time out was conducted. Using wire cutters the pins were cut and the external fixator was carefully removed from the right lower extremity. The right lower extremity was scrubbed, prepped, and draped in the usual aseptic manner. Attention was then directed to the remaining wires in the right lower extremity and using pliers the pins were carefully removed without incident. Using chlorohexidine and antibiotic infused saline solution the right lower extremity was scrubbed again to clean off skin slough and clean the pin sites. Xeroform was applied to the right lower extremity pin sites and a well padded below knee cast was applied to the right lower extremity. Patient was transferred to the PACU with vital signs stable and neurovascular status intact. ML ROSALES DPM May 28, 2019 14:36
--- NOTE | 2019-05-28 14:36 | SIPON ---
Date/Time of Note Date/Time of Note DATE: 05/28/19 TIME: 14:34 Operative Report Preoperative Diagnosis Right lower extremity Charcot Neuroarthropathy DM2 with peripheral neuropathy Hx of amputation to right foot Retained external fixator right lower extremity Postoperative Diagnosis Right lower extremity Charcot Neuroarthropathy DM2 with peripheral neuropathy Hx of amputation to right foot Retained external fixator right lower extremity Operation/Procedure Performed Removal of external fixator Surgeon see signature line speech assistant none Anesthesia: general Estimated blood loss: 0 - 10 ml's Transfusion Required none Specimen none Grafts/Implants none Complications none ML ROSALES DPM May 28, 2019 14:36
--- NOTE | 2019-05-28 14:40 | PAC ---
Date/Time of Note Date/Time of Note DATE: 05/28/19 TIME: 14:39 Post-Anesthesia Notes Post-Anesthesia Note Last documented vital signs Vital Signs Date Temp Pulse Resp B/P (MAP) Pulse Ox O2 O2 Flow FiO2 Time Delivery Rate 05/28/19 98 70 18 110/65 96 Room Air 1440 Activity: WNL Respiratory function: WNL Cardiovascular function: WNL Mental status: Baseline Pain reasonably controlled: Yes Hydration appropriate: Yes Nausea/Vomiting absent: Yes MT POLK DO May 28, 2019 14:40
--- NOTE | 2019-06-02 09:54 | HP ---
Date/Time of Note Date/Time of Note DATE: 06/02/19 TIME: 09:54 Assessment/Plan VTE Prophylaxis Pharmacological prophylaxis: heparin Lines/Catheters IV Catheter Type (from Nrsg): Peripheral IV Assessment/Plan Assessment/Plan Right lower extremity Charcot Neuroarthropathy DM2 with peripheral neuropathy Hx of amputation to right foot Retained external fixator right lower extremity Plan: Patient was scheduled for external fixator removal and placed back into a below cast. Patient is to continue remain non weight bearing to the right lower extremity. Patient does not need antibiotics at this time. Patient to continue to follow up in wound care clinic and will make a gradual progression to assisted weight bearing with CAM boot. Recommend tight glycemic control and to monitor for any signs/symptoms of open wounds and or infections. HPI/ROS Admit Date/Time Admit Date/Time Hx of Present Illness 58 y/o diabetic M patient seen in the wound care clinic and had previous surgery with charcot reconstruction with application of external fixator. Patient in the past had an acute charcot event with non viable bone protruding out from the joint. Bone was cultured and antibiotic cement was placed. There was reported no osteomyelitis. The antibiotic cement was removed and patient had hammertoe correction, bone graft and reconstruction of the charcot foot with external fixator. Patient was in SNF during his post operative period for approximately 3 months. He was being discharged from SNF and was deemed necessary to remove the external fixator as it may be of safety risk at home. Serial CT and x-rays were taken and was showing advancement of bone trabeculation. ROS ROS negative except for HPI PMH/Family/Social Past Medical History diabetes, charcot neuroarthopathy, claw toe deformities, DM2 with peripheral neuropathy, history of previous foot amputations. Coded Allergies: No Known Allergy (Unverified , 01/29/19) Past Surgical History charcot reconstruction with external fixator Family History Significant Family History: heart disease, diabetes Social History Alcohol Use: none Smoking Status: Never smoker Drug Use: none Exam/Review of Systems Exam Constitutional: alert, oriented, well developed Psych: no complaints Head: normocephalic, atraumatic Eyes: nl conjunctiva, EOMI, PERRL ENMT: mucosa pink and moist Neck: supple, non-tender Respiratory: clear to auscultation, normal air movement Cardiovascular: regular rate and rhythm, nl pulses Gastrointestinal: soft, non-tender Extremities: normal pulses Neurological: numbness Additional Comments Patient with stable external fixator no open lesions no purulence no proximal streaking ML ROSALES DPM Jun 02, 2019 09:54
== END 2019-05-28 17:10 | disposition home or self-care (01) ==
LOC: SDS 11:10
PROVIDERS: ATTEND Podiatrist Foot & Ankle Surgery
DX: Z47.2 Encounter for removal of internal fixation device (principal); E11.42 Type 2 diabetes mellitus with diabetic polyneuropathy; E11.610 Type 2 diabetes mellitus with diabetic neuropathic arthropathy; Z89.431 Acquired absence of right foot; Z79.82 Long term (current) use of aspirin; Z79.4 Long term (current) use of insulin
CPT/HCPCS: 20694; 73620; 82962; J0690; J2250; J2405; J2795; J3010